=== PATIENT | female | born 1955 | race Caucasian/White ===

== ENCOUNTER 2016-12-05 22:02 | Emergency (ER) | payer SELFPAY ==
[~2016-12-05] VITALS: Ht 172.7 cm; Wt 117.9 kg
[~2016-12-05 22:02] MED LIST: ACET325T9 PO; ALBI50PE SQ; AMLO10TA2 PO; ASCO500T2 PO; ASPI-482 PO; ATOR20TA58 PO; CHOL2000 PO; CINN500C2 PO; CIPR500T94 PO; CITA20TA9 PO; CLOP75TA PO; CYAN1TAB21 PO; ERYT250T14 PO; FLUC100T7 PO; HYDR-2867 PO; HYDR12.58 PO; IBUP800T19 PO; INSU100I13 SQ; LOSA100T6 PO; METF500T4 PO; METO100T5 PO; METOPROLOL PO; MULT1TAB52 PO; OMEG1CAP27 PO; OMEG500C3 PO; ONDA8TAB12 PO; PANT40TA3 PO; SENN-79 PO; SIMV40TA3 PO; SPIR50TA2 PO; VALS1TAB22 PO; VALS320T2 PO; VITA1TAB3 PO
[2016-12-05 22:18] VITALS: BP 142/82
[2016-12-05] MEDS ORDERED: OXYMETAZOLINE 0.05% NASAL SPRAY 30ML BOTTLE. NS ONE (23:00)
[2016-12-06] MEDS ORDERED: TRANEXAMIC ACID 1,000 MG/10 ML VIAL. TOP ONE
[2016-12-06] MEDS ORDERED: CYCL5TAB PO (00:14)
[2016-12-06] MEDS ORDERED: CYCLOBENZAPRINE 10 MG TABLET. PO ONE (00:30)
--- NOTE | 2016-12-06 02:51 | ED.ADGEN ---
Past Medical History Past Medical History: CVA, Diabetes-Type II, Hypertension, Stroke, TIA, Other Additional Past Medical Histor: BONDS'S PALSY Past Surgical History: Other Additional Past Surgical Histo: ORIF LEFT ANKLE Alcohol Use: None Drug Use: None Adult General Chief Complaint Chief Complaint: NOSEBLEED HPI HPI Patient is a 61 year old [woman, history of type 2 diabetes mellitus, CVA and Plavix, hypertension, who presents emergency Department with complaint of epistaxis. Patient states she's been experiencing a stuffy runny nose for the past several days, is blind was recently. States that earlier tonight around 7 PM she noted that she was having bleeding, initially from her left [place], and appeared be coming from both. Patient states that she applied some pressure, although when she demonstrates her technique in the ED and appears to be fairly ineffective, and that bleeding was persistent until shortly before she arrived in the ED. Patient denies any headache, any blurry vision, any weakness, numbness, tingling, nausea or vomiting, chest pain or short of breath, swelling extremities. She is also complaining of pain from her sciatica, in her left lower extremity. She states she was seen by physical therapy after being seen by her primary care provider, as told with physical therapist that they did not believe the physical therapy would be effective, as they did not agreed that it was due to her sciatic pain. Review of Systems Review of Systems Constitutional: Denies fever or chills. [] Eyes: Denies change in visual acuity. [] HENT: Nasal congestion, no sore throat, the development of epistaxis for the past 3 hours. Respiratory: Denies cough or shortness of breath. [] Cardiovascular: Denies chest pain or edema. [] GI: Denies abdominal pain, nausea, vomiting, bloody stools or diarrhea. [] : Denies dysuria. [] Musculoskeletal: Denies back pain or joint pain. [] Integument: Denies rash. [] Neurologic: Denies headache, focal weakness or sensory changes. [] Endocrine: Denies polyuria or polydipsia. [] Lymphatic: Denies swollen glands. [] Psychiatric: Denies depression or anxiety. [] Current Medications Current Medications Current Medications Medications (Trade) Dose Ordered Sig/Mendy Start Time Stop Time Status Last Admin Dose Admin Cyclobenzaprine HCl (Flexeril) 5 mg 1X ONCE 12/06/16 00:30 12/06/16 00:30 DC 12/06/16 00:13 5 MG Oxymetazoline HCl (Afrin) 2 spray 1X ONCE 12/05/16 23:00 12/05/16 23:01 DC 12/05/16 22:48 2 SPRAY Tranexamic Acid (Cyklokapron) 1,000 mg 1X ONCE 12/06/16 00:00 12/06/16 00:01 DC 12/05/16 23:50 1,000 MG Allergies Allergies Allergies Coded Allergies Type Severity Reaction Last Updated Verified No Known Drug Allergies 01/03/16 No Physical Exam Physical Exam Constitutional: Well developed, well nourished, no acute distress, noted to have oozing from the left Whitfield. HENT: Normocephalic, atraumatic, bilateral external ears normal, oropharynx moist, no oral exudates, patient with dark red blood oozing from the left [place]field, noted have evidence of inflammation and irritation throughout the turbinates and mucosa, with no evidence of denuded vessels. Patient with some dried blood in right Whitfield, cleared without issue, noted to have mild inflammation of the turbinates, but no evidence of bleeding or other abnormalities. No evidence of posterior bleeding. Eyes: PERRLA, EOMI, conjunctiva normal, no discharge. [] Neck: Normal range of motion, no tenderness, supple, no stridor. [] Cardiovascular:Heart rate regular rhythm, no murmur, S1, S2, no rubs or gallops. [] Lungs & Thorax: Bilateral breath sounds clear to auscultation , no wheezing, rhonchi or rales. [] Abdomen: Bowel sounds normal, soft, no tenderness, no masses, no pulsatile masses. [] Skin: Warm, dry, no erythema, no rash. [] Back: No tenderness, no CVA tenderness. [] Extremities: No tenderness, no cyanosis, no clubbing, ROM intact, no edema. [] Neurologic: Alert and oriented X 3, normal motor function, normal sensory function, no focal deficits noted. [] Psychologic: Affect normal, judgement normal, mood normal. [] Current Patient Data Vital Signs Vital Signs Date Time Temp Pulse Resp B/P (MAP) Pulse Ox O2 Delivery O2 Flow Rate FiO2 12/05/16 22:18 97.5 77 18 142/82 (102) 97 Room Air 97.5 EKG EKG Not indicated. [] Radiology/Procedures Radiology/Procedures Not indicated. [] Course & Med Decision Making Course & Med Decision Making Pertinent Labs and Imaging studies reviewed. (See chart for details) Patient initially with no bleeding, however on further examination, oozing began out of the left Whitfield. This is an anterior bleed with no evidence of posterior bleeding, consistent with localized irritation due to possible seasonal allergies versus viral illness, exacerbated by patient's use of Plavix. Afrin was applied, patient had persistent bleeding. After discussion at bedside, T x-ray was administered via atomizer, patient with persistent bleeding at the time, and then a 5-1/2 cm anterior Rhino Rocket was placed with normal saline in the balloon with good effect secondary to compression. Patient observed in the ED, with no further evidence of bleeding, was comfortable with nasal balloon in place. I had a lengthy discussion at bedside with patient and regarding risks of having internasal device, and concerning symptoms that would prompt further evaluation and return. Patient is breathing without difficulty in the ED. She has also complaining of the pain in the left lower extremity, which I believe is consistent with sciatic type pain, as was diagnosed by her primary care provider. At this time the patient is using acetaminophen at home, I advised to continue acetaminophen as needed, and to also trial cyclobenzaprine 5 mg, after appropriate precautions regarding drowsiness and risk for side effects discussed. Patient voiced understanding and agreement with these instructions, to follow-up with her primary care provider in 48 hours for recheck, as she states there is any ENT in the same office, if there is difficulty in obtaining a visit with her primary care provider and with ENT, patient was also given contact information for Dr. Jerry of otolaryngology, instructed to contact his office at the number provided if there is any difficulty in establishing follow-up. Patient and voiced understanding and agreement with plan as stated, to return to the ED immediately if any concerning findings develop, to follow-up as stated, and to keep packing in place until she is further evaluated. Patient discharged home in stable condition with plan and precautions as above. Dragon Disclaimer Dragon Disclaimer This electronic medical record was generated, in whole or in part, using a voice recognition dictation system. Departure Impression: Primary Impression: Acute anterior epistaxis Disposition: HOME, SELF-CARE Condition: IMPROVED Scripts Cyclobenzaprine Hcl (CYCLOBENZAPRINE HCL) 5 Mg Tablet 1 TAB PO TID Y for PAIN, #12 TAB One pill by mouth up to 3 times daily as needed for muscle spasm and pain. Caution with use of this medication as it may cause drowsiness. Do not drive or operate machinery while using cyclobenzaprine. Prov: TORREY CONSTANTINO DO 12/06/16 TORREY CONSTANTINO DO Dec 06, 2016 02:51
== END 2016-12-06 00:23 | disposition home or self-care (01) ==
LOC: ER 22:02
DX: R04.0 Epistaxis (principal); E11.9 Type 2 diabetes mellitus without complications; I10 Essential (primary) hypertension; Z86.73 Personal history of transient ischemic attack (TIA), and cerebral infarction without residual deficits; G51.0 Bell's palsy; Z98.890 Other specified postprocedural states
CPT/HCPCS: 30901; 99284-25

== ENCOUNTER 2016-12-13 10:24 | Inpatient (IN) | payer SELFPAY ==
[~2016-12-13] VITALS: Ht 174 cm; Wt 123.9 kg
[~2016-12-13 10:24] MED LIST changes: +CYCL5TAB PO
[2016-12-13] MEDS ORDERED: FAMOTIDINE 20 MG/2 ML VIAL IVP ONE (10:45)
[2016-12-13] MEDS ORDERED: ONDANSETRON PF 4 MG/2 ML VIAL. IV ONE (10:45)
[2016-12-13] MEDS ORDERED: IV NORMAL SALINE 1000ML BAG 1,000 ML IV ONE ×2 (10:45→13:30)
--- NOTE | 2016-12-13 10:48 | PHYS DOC ---
Past Medical History Past Medical History: CVA, Diabetes-Type II, Hypertension, Stroke, TIA, Other Additional Past Medical Histor: BONDS'S PALSY Past Surgical History: Other Additional Past Surgical Histo: ORIF LEFT ANKLE Alcohol Use: None Drug Use: None Adult General Chief Complaint Chief Complaint: NAUSEA/VOMITING/DIARRHA HPI HPI Patient is a 61 year old female with history of hypertension, diabetes, CVA 4 , who presents today with nausea and vomiting that began 4 days ago. Patient states she was seen by the PCP on Wednesday which is 3 days ago for the same complaint. Patient states she was given nausea medicine. Patient states she took the nausea medicine and still had a couple episodes of vomiting. She states this morning she took 2 cups of coffee and was able to keep it down prior to coming to the ED. Patient states she has slight midepigastric abdominal pain. Denies any chest pain or shortness of breath. Denies any fever. Patient states her nausea and vomiting is nothing new. Patient states she's had episodes of nausea vomiting previously. Patient denies any diarrhea. Patient also states she is being treated for UTI currently on Cipro. She states she started the Cipro on Wednesday but has not been able to keep it down. Review of Systems Review of Systems Constitutional: See history of present illness Eyes: Denies change in visual acuity, redness, or eye pain [] HENT: Denies nasal congestion or sore throat [] Respiratory: Denies cough or shortness of breath [] Cardiovascular: No additional information not addressed in HPI [] GI: Nausea and vomiting : Denies dysuria or hematuria [] Musculoskeletal: History of CVA with left-sided weakness Integument: Denies rash or skin lesions [] Neurologic: Denies headache, focal weakness or sensory changes [] Endocrine: Denies polyuria or polydipsia [] Current Medications Current Medications Current Medications Medications (Trade) Dose Ordered Sig/Mendy Start Time Stop Time Status Last Admin Dose Admin Famotidine (Pepcid) 20 mg 1X ONCE 12/13/16 10:45 12/13/16 10:46 DC 12/13/16 10:56 20 MG Hydralazine HCl (Apresoline) 10 mg 1X ONCE 12/13/16 11:30 12/13/16 11:31 DC 12/13/16 12:10 10 MG Info (Do NOT chart on this entry -- for MONITORING) 1 each PRN DAILY PRN 12/13/16 12:00 12/15/16 11:59 Iohexol (Omnipaque 300 Mg/ml) 60 ml 1X ONCE 12/13/16 12:00 12/13/16 12:01 DC 12/13/16 12:18 60 ML Metoprolol Tartrate (Lopressor) 5 mg 1X ONCE 12/13/16 11:30 12/13/16 11:31 DC 12/13/16 12:11 5 MG Ondansetron HCl (Zofran) 4 mg 1X ONCE 12/13/16 10:45 12/13/16 10:46 DC 12/13/16 10:54 4 MG Sodium Chloride 1,000 ml @ 1,000 mls/hr 1X ONCE 12/13/16 10:45 12/13/16 11:44 DC 12/13/16 10:54 1,000 MLS/HR Allergies Allergies Allergies Coded Allergies Type Severity Reaction Last Updated Verified No Known Drug Allergies 01/03/16 No Physical Exam Physical Exam Constitutional: Well developed, well nourished, no acute distress, non-toxic appearance. [] HENT: Normocephalic, atraumatic, bilateral external ears normal, oropharynx moist, no oral exudates, nose normal. [] Eyes: PERRLA, EOMI, conjunctiva normal, no discharge. [] Neck: Normal range of motion, no tenderness, supple, no stridor. [] Cardiovascular:Heart rate regular rhythm, no murmur [] Lungs & Thorax: Bilateral breath sounds clear to auscultation [] Abdomen: Rounded abdomen. Bowel sounds normal, soft, no tenderness, no masses, no pulsatile masses. [] Skin: Warm, dry, no erythema, no rash. [] Back: No tenderness, no CVA tenderness. [] Extremities: No tenderness, no cyanosis, no clubbing, no edema. Left sided weakness noted from previous CVA Neurologic: Alert and oriented X 3, normal motor function, normal sensory function, no focal deficits noted. [] Psychologic: Affect normal, judgement normal, mood normal. [] Current Patient Data Vital Signs Vital Signs Date Time Temp Pulse Resp B/P (MAP) Pulse Ox O2 Delivery O2 Flow Rate FiO2 12/13/16 12:40 75 18 167/74 (105) 98 Room Air 12/13/16 10:32 98.9 98.9 Lab Values Laboratory Tests Test 12/13/16 10:45 12/13/16 11:50 White Blood Count 21.7 x10^3/uL (4.0-11.0) H Red Blood Count 3.83 x10^6/uL (3.50-5.40) Hemoglobin 10.6 g/dL (12.0-15.5) L Hematocrit 30.8 % (36.0-47.0) L Mean Corpuscular Volume 81 fL (79-100) Mean Corpuscular Hemoglobin 28 pg (25-35) Mean Corpuscular Hemoglobin Concent 34 g/dL (31-37) Red Cell Distribution Width 13.8 % (11.5-14.5) Platelet Count 479 x10^3/uL (140-400) H Neutrophils (%) (Auto) 86 % (31-73) H Lymphocytes (%) (Auto) 9 % (24-48) L Monocytes (%) (Auto) 5 % (0-9) Eosinophils (%) (Auto) 0 % (0-3) Basophils (%) (Auto) 0 % (0-3) Neutrophils # (Auto) 18.6 x10^3uL (1.8-7.7) H Lymphocytes # (Auto) 2.0 x10^3/uL (1.0-4.8) Monocytes # (Auto) 1.1 x10^3/uL (0.0-1.1) Eosinophils # (Auto) 0.0 x10^3/uL (0.0-0.7) Basophils # (Auto) 0.0 x10^3/uL (0.0-0.2) Segmented Neutrophils % 83 % (35-66) H Band Neutrophils % 3 % (0-9) Lymphocytes % 9 % (24-48) L Monocytes % 2 % (0-10) Myelocytes % 3 % (0-0) H Hypersegmented Neutrophils Present Platelet Estimate Increased (ADEQUATE) Prothrombin Time 13.1 SEC (11.7-14.0) Prothrombin Time INR 1.1 (0.8-1.1) PTT 28 SEC (24-38) Sodium Level 138 mmol/L (136-145) Potassium Level 4.3 mmol/L (3.5-5.1) Chloride Level 101 mmol/L (98-107) Carbon Dioxide Level 29 mmol/L (21-32) Anion Gap 8 (6-14) Blood Urea Nitrogen 25 mg/dL (7-20) H Creatinine 1.1 mg/dL (0.6-1.0) H Estimated GFR (Cockcroft-Gault) 50.2 BUN/Creatinine Ratio 23 (6-20) H Glucose Level 187 mg/dL (70-99) H Calcium Level 9.6 mg/dL (8.5-10.1) Magnesium Level 1.9 mg/dL (1.8-2.4) Total Bilirubin 0.5 mg/dL (0.2-1.0) Aspartate Amino Transferase (AST) 29 U/L (15-37) Alanine Aminotransferase (ALT) 56 U/L (14-59) Alkaline Phosphatase 81 U/L (46-116) Creatine Kinase 123 U/L (26-192) Creatine Kinase MB (Mass) 1.5 ng/mL (0.0-3.6) Creatine Kinase MB Relative Index 1.2 % (0-4) Troponin I Quantitative < 0.017 ng/mL (0.000-0.055) FZ-Yac-C-Type Natriuretic Peptide 1301 pg/mL (0-124) H Total Protein 7.7 g/dL (6.4-8.2) Albumin 3.4 g/dL (3.4-5.0) Albumin/Globulin Ratio 0.8 (1.0-1.7) L Lipase 135 U/L (73-393) Urine Collection Type U cath Urine Color Yellow Urine Clarity Clear Urine pH 5.5 Urine Specific [place] 1.015 Urine Protein 30 mg/dL (NEG-TRACE) Urine Glucose (UA) Negative mg/dL (NEG) Urine Ketones (Stick) Negative mg/dL (NEG) Urine Blood Negative (NEG) Urine Nitrite Positive (NEG) Urine Bilirubin Negative (NEG) Urine Urobilinogen Dipstick 0.2 mg/dL (0.2 mg/dL) Urine Leukocyte Esterase Moderate (NEG) Urine RBC Occ /HPF (0-2) Urine WBC 20-40 /HPF (0-4) Urine Squamous Epithelial Cells Few /LPF Urine Bacteria Many /HPF (0-FEW) Urine Mucus Slight /LPF Laboratory Tests 12/13/16 10:45 Laboratory Tests 12/13/16 10:45 EKG EKG [] Radiology/Procedures Radiology/Procedures [] Course & Med Decision Making Course & Med Decision Making Pertinent Labs and Imaging studies reviewed. (See chart for details) This is a 61-year-old female patient who presents to the ED today with nausea vomiting that began 4 days ago. She was seen by the PCP 3 days ago and was given nausea medicine. She states she still continued to have episodes of nausea and vomiting. She is also being treated for UTI. She is currently on Cipro but not able to keep it down because of the nausea and vomiting. CBC with a WBC of 21.7. Urine positive for nitrites and leukocytes. Vitals on arrival to the ED temperature 98.9, heart rate 74, O2 sats 99% on room air, respirations 16 on room air, blood pressure 201/88, patient states she has not been able to take her blood pressure medicines because of her symptoms. She was given hydralazine and metoprolol IV which she takes PO at home. We did consider this patient for sepsis though she does not meet the full criteria. Her white count is elevated which could come from a pyelonephritis as well as the nausea and vomiting. She seemed to have a BNP that is elevated 1301 , slight consideration for heart failure in her case was put in mind. Chest x- ray is negative for any acute findings. She was given a liter of fluids and started on normal saline at 125 mL an hour. She was also started on Levaquin. Blood cultures were obtained prior to antibiotics as well as urine cultures. Consulted with Dr. Tomlinson patient was admitted in stable condition. Dragon Disclaimer Dragon Disclaimer This electronic medical record was generated, in whole or in part, using a voice recognition dictation system. Departure Departure Impression: Primary Impression: Acute pyelonephritis Additional Impressions: Intractable nausea and vomiting Leukocytosis Sepsis Epigastric abdominal pain Disposition: ADMITTED INPATIENT Admitting Physician: Nithin Tomlinson Condition: STABLE Referrals: NALLELY MCLEAN MD (PCP) Problem Qualifiers Additional Impressions: Intractable nausea and vomiting Vomiting type: unspecified Qualified Codes: R11.2 - Nausea with vomiting, unspecified Leukocytosis Leukocytosis type: unspecified Qualified Codes: D72.829 - Elevated white blood cell count, unspecified Sepsis Sepsis type: sepsis due to unspecified organism Qualified Codes: A41.9 - Sepsis, unspecified organism MUTUNGA,ANTONI ECHOCARDIOGRAPHER Dec 13, 2016 10:48
[2016-12-13 11:02] LABS: BASO % 0 % (0-3); EOS % 0 % (0-3); HEMATOCRIT 30.8 % (36.0-47.0); HEMOGLOBIN 10.6 g/dL (12.0-15.5); LYMPH % 9 % (24-48); MEAN CORPUSCULAR HEMOGLOBIN 28 pg (25-35); MEAN CORPUSCULAR HGB CONC 34 g/dL (31-37); MEAN CORPUSCULAR VOLUME 81 fL (79-100); MONO % 5 % (0-9); NEUT % 86 % (31-73); PLATELET COUNT 479 x10^3/uL (140-400); RED BLOOD COUNT 3.83 x10^6/uL (3.50-5.40); RED CELL DISTRIBUTION WIDTH 13.8 % (11.5-14.5); WHITE BLOOD COUNT 21.7 x10^3/uL (4.0-11.0)
[2016-12-13 11:11] LABS: INR 1.1 (0.8-1.1); PROTHROMBIN TIME PATIENT 13.1 SEC (11.7-14.0)
[2016-12-13 11:12] LABS: CALCIUM 9.6 mg/dL (8.5-10.1); CREATININE 1.1 mg/dL (0.6-1.0); GFR 50.2; POTASSIUM 4.3 mmol/L (3.5-5.1)
[2016-12-13 11:19] LABS: ALBUMIN 3.4 g/dL (3.4-5.0); ALBUMIN/GLOBULIN RATIO 0.8 (1.0-1.7); MAGNESIUM 1.9 mg/dL (1.8-2.4); TOTAL BILIRUBIN 0.5 mg/dL (0.2-1.0); TOTAL PROTEIN 7.7 g/dL (6.4-8.2)
[2016-12-13 11:27] LABS: CKMB MASS 1.5 ng/mL (0.0-3.6)
[2016-12-13] MEDS ORDERED: hydrALAZINE 20 MG/ML VIAL. IVP ONE (11:30)
[2016-12-13] MEDS ORDERED: METOPROLOL TARTRATE 5 MG/5 ML VIAL. IVP ONE (11:30)
--- NOTE | 2016-12-13 11:30 | RAD ---
Portable chest, 12/13/2016: History: Nausea, vomiting, diarrhea, epigastric pain, UTI Comparison is made to a study from 01/01/2016. The heart size and pulmonary vascularity are normal. There is mild tortuosity of the thoracic aorta. There is minimal linear atelectasis and/or scarring in the left base. No pulmonary consolidation is seen. There is no evidence of pleural fluid. IMPRESSION: Minimal left basilar linear atelectasis or scarring.
--- NOTE | 2016-12-13 11:31 | EKG ---
[facility] [address] [place] [address] Test Date: 2016-12-13 Test Time: 10:39:49 Pat Name: TUAN PAEZ Department: Room: Gender: F [employer] Intern: : 1955 Requested By: ANTONI MEIER Order Number: [id number] Reading MD: Kenny Buchanan Measurements Intervals [place] Rate: 71 P: 45 RI: 138 QRS: -6 QRSD: 86 T: 38 QT: 418 QTc: 459 Interpretive Statements SINUS RHYTHM LEFTWARD AXIS OTHERWISE NORMAL ECG RI6.01 Unconfirmed report Compared to ECG 01/01/2016 12:48:08 Left-axis deviation now present Electronically Signed On 12-13-2016 15:57:38 CDT by Kenny Buchanan
[2016-12-13] MEDS ORDERED: IOHEXOL 300 MG/ML 75 ML VIAL IV ONE (12:00)
[2016-12-13] MEDS ORDERED: CONTRAST GIVEN MC PRN (12:00)
[2016-12-13 12:13] LABS: BILIRUBIN,URINE NEGATIVE (NEG); GLUCOSE,URINE NEGATIVE (NEG); NITRITE,URINE POSITIVE (NEG); PH,URINE 5.5; PROTEIN,URINE 30 mg/dL (NEG-TRACE); UROBILINOGEN,URINE 0.2 mg/dL (0.2 mg/dL)
[2016-12-13 12:17] LABS: PLT ESTIMATE INCREASED (ADEQUATE)
[2016-12-13 12:18] LABS: SQUAMOUS EPITHELIAL CELL,UR FEW /LPF
[2016-12-13 12:19] LABS: BACTERIA,URINE MANY /HPF (0-FEW); WBC,URINE 20-40 /HPF (0-4)
[2016-12-13 12:21] LABS: RBC,URINE OCC /HPF (0-2)
--- NOTE | 2016-12-13 12:53 | RAD ---
CT of the abdomen and pelvis with contrast, 12/13/2016: History: Abdominal pain, nausea and vomiting Multidetector CT imaging was performed following an IV bolus injection of iodinated contrast material. No oral contrast material was administered for this study. There is mild linear atelectasis or scarring in the left lung base. No hepatic abnormality is detected. No definite gallbladder abnormality is seen. There is no evidence of pericholecystic edema. The pancreas is unremarkable. The spleen is of normal size. No renal or adrenal abnormality is detected. There is mild aortoiliac calcific plaquing without evidence of aneurysm. No abdominal or pelvic adenopathy is seen. The uterus and ovaries are unremarkable. Several small colonic diverticula are noted in the sigmoid and descending colon. No paracolonic inflammatory process is seen. The bowel loops are not dilated. The appendix is not clearly visualized. No dilated appendix or pericecal inflammatory process is evident. No free fluid or free air is seen in the abdomen or pelvis. There is a small umbilical hernia containing only fat. There are degenerative changes in the lower lumbar spine, greatest at the L5-S1 disc level. IMPRESSION: 1. Minimal colonic diverticulosis. 2. No acute abdominal or pelvic abnormality is detected. PQRS Compliance Statement: One or more of the following individualized dose reduction techniques were utilized for this examination: 1. Automated exposure control 2. Adjustment of the mA and/or kV according to patient size 3. Use of iterative reconstruction technique
[2016-12-13] MEDS ORDERED: PROCHLORPERAZINE 10 MG/2 ML VIAL. IV PRN (13:30)
[2016-12-13] MEDS ORDERED: MORPHINE SULFATE 4 MG/ML DISP.SYRIN. IV PRN (13:30)
[2016-12-13] MEDS ORDERED: ONDANSETRON PF 4 MG/2 ML VIAL. IV PRN (13:30)
[2016-12-13] MEDS ORDERED: INSU100V8 SQ (14:25)
[2016-12-13] MEDS ORDERED: HYDR-2868 PO (14:25)
[2016-12-13] MEDS ORDERED: METO100T11 PO (14:46)
[2016-12-13] MEDS ORDERED: PANT40TA5 PO (14:46)
[2016-12-13 15:00] VITALS: BP 155/63
[2016-12-13] MEDS ORDERED: hydrALAZINE 20 MG/ML VIAL. IVP PRN (16:30)
[2016-12-13] MEDS ORDERED: MORPHINE SULFATE 2 MG/ML DISP.SYRIN. IV PRN (16:30)
[2016-12-13] MEDS ORDERED: DOCUSATE SODIUM 100 MG CAPSULE. PO PRN (16:30)
[2016-12-13] MEDS ORDERED: ACETAMINOPHEN 325 MG TABLET. PO PRN (16:30)
[2016-12-13] MEDS ORDERED: DEXTROSE 50% 25 GM / 50ML DISP.SYRIN. IV PRN ×2 (16:30)
[2016-12-13] MEDS ORDERED: traMADol 50 MG TABLET PO PRN (16:30)
--- NOTE | 2016-12-13 16:31 | PDOC1 ---
History and Physical Date of Admission Date of Admission 12/13/16 Identification/Chief Complaint Chief Complaint N/V Problems: Source Source: Caregiver, Chart review, Patient History of Present Illness History of Present Illness HPI Patient is a 61 year old female with history of hypertension, diabetes, CVA 4 , who presents today with nausea and vomiting x1 week. Pt was here recently for nose bleeding, resolved. She started to feel N/V since Wednesday, BM normal . went to see PCP on Wednesday, was told UTI, gave cipro and took 2 pills. Denies fever, chills, abd pain, flank pain, cough ,sob. denies dysuria, but has chronic frequent urination with urinary incontinence and BM incontinence. ct NEG Except mild diverticulosis. denies taking NSADIS, said had EGD, COlonoscopy with dr. Swanson last year, neg. Past Medical History Cardiovascular: HTN, Hyperlipidemia Pulmonary: No pertinent hx CENTRAL NERVOUS SYSTEM: CVA, Other GI: No pertinent hx Heme/Onc: Anemia NOS Hepatobiliary: No pertinent hx Psych: No pertinent hx Rheumatologic: No pertinent hx Infectious disease: No pertinent hx Renal/: Chronic renal insuff Endocrine: Diabetes Past Surgical History Past Surgical History: Other Family History Family History: Coronary Artery Disease, Stroke Social History Smoke: No ALCOHOL: none Drugs: None Current Problem List Problem List Problems Medical Problems: (1) Epigastric abdominal pain Status: Acute (2) Intractable nausea and vomiting Status: Acute (3) Leukocytosis Status: Acute (4) Sepsis Status: Acute Current Medications Current Medications Current Medications Medications (Trade) Dose Ordered Sig/Mendy Start Time Stop Time Status Last Admin Dose Admin Famotidine (Pepcid) 20 mg BID 12/13/16 21:00 Hydralazine HCl (Apresoline) 10 mg 1X ONCE 12/13/16 11:30 12/13/16 11:31 DC 12/13/16 12:10 10 MG Info (Do NOT chart on this entry -- for MONITORING) 1 each PRN DAILY PRN 12/13/16 12:00 12/15/16 11:59 Iohexol (Omnipaque 300 Mg/ml) 60 ml 1X ONCE 12/13/16 12:00 12/13/16 12:01 DC 12/13/16 12:18 60 ML Levofloxacin/ Dextrose 100 ml @ 100 mls/hr Q24H 12/13/16 14:00 12/13/16 14:37 100 MLS/HR Metoprolol Tartrate (Lopressor) 5 mg 1X ONCE 12/13/16 11:30 12/13/16 11:31 DC 12/13/16 12:11 5 MG Morphine Sulfate 4 mg PRN Q2HR PRN 12/13/16 13:30 12/14/16 13:29 Ondansetron HCl (Zofran) 4 mg PRN Q8HRS PRN 12/13/16 13:30 12/14/16 13:29 Prochlorperazine Edisylate (Compazine) 10 mg PRN Q8HRS PRN 12/13/16 13:30 Sodium Chloride 1,000 ml @ 125 mls/hr 1X ONCE 12/13/16 13:30 12/13/16 21:29 12/13/16 14:36 125 MLS/HR Allergies Allergies Allergies Coded Allergies Type Severity Reaction Last Updated Verified No Known Drug Allergies 01/03/16 No ROS Review of System CONSTITUTIONAL: No fever or chills EYES: No recent changes SKIN: No rash or itching CARDIOVASCULAR: No chest pain, syncope, palpitations, or edema RESPIRATORY: No SOB or cough GASTROINTESTINAL: No nausea, vomiting or abdominal pain NEUROLOGICAL: No headaches or weakness ENDOCRINE: No cold or heat intolerance GENITOURINARY: No urgency or frequency of urination MUSCULOSKELETAL: No back pain or joint pain LYMPHATICS: No enlarged lymph nodes PSYCHIATRIC: No anxiety or depression Physical Exam Physical Exam GEN.: No apparent distress. Alert and oriented. HEENT: Head is normocephalic, atraumatic NECK: Supple. LUNGS: Clear to auscultation. HEART: RRR, S1, S2 present. Peripheral pulses intact ABDOMEN: Soft, nontender. Positive bowel sounds. EXTREMITIES: Without any cyanosis. NEUROLOGIC: Normal speech, normal tone PSYCHIATRIC: Normal affect, normal mood. SKIN: No ulcerations Vitals Vitals Vital Signs Date Time Temp Pulse Resp B/P (MAP) Pulse Ox O2 Delivery O2 Flow Rate FiO2 12/13/16 15:39 Room Air 12/13/16 15:00 98.3 74 20 155/63 (93) 97 98.3 Labs Labs Laboratory Tests Test 12/13/16 10:45 12/13/16 11:50 12/13/16 13:53 White Blood Count 21.7 x10^3/uL (4.0-11.0) Red Blood Count 3.83 x10^6/uL (3.50-5.40) Hemoglobin 10.6 g/dL (12.0-15.5) Hematocrit 30.8 % (36.0-47.0) Mean Corpuscular Volume 81 fL (79-100) Mean Corpuscular Hemoglobin 28 pg (25-35) Mean Corpuscular Hemoglobin Concent 34 g/dL (31-37) Red Cell Distribution Width 13.8 % (11.5-14.5) Platelet Count 479 x10^3/uL (140-400) Neutrophils (%) (Auto) 86 % (31-73) Lymphocytes (%) (Auto) 9 % (24-48) Monocytes (%) (Auto) 5 % (0-9) Eosinophils (%) (Auto) 0 % (0-3) Basophils (%) (Auto) 0 % (0-3) Neutrophils # (Auto) 18.6 x10^3uL (1.8-7.7) Lymphocytes # (Auto) 2.0 x10^3/uL (1.0-4.8) Monocytes # (Auto) 1.1 x10^3/uL (0.0-1.1) Eosinophils # (Auto) 0.0 x10^3/uL (0.0-0.7) Basophils # (Auto) 0.0 x10^3/uL (0.0-0.2) Segmented Neutrophils % 83 % (35-66) Band Neutrophils % 3 % (0-9) Lymphocytes % 9 % (24-48) Monocytes % 2 % (0-10) Myelocytes % 3 % (0-0) Hypersegmented Neutrophils Present Platelet Estimate Increased (ADEQUATE) Prothrombin Time 13.1 SEC (11.7-14.0) Prothromb Time International Ratio 1.1 (0.8-1.1) Activated Partial Thromboplast Time 28 SEC (24-38) Sodium Level 138 mmol/L (136-145) Potassium Level 4.3 mmol/L (3.5-5.1) Chloride Level 101 mmol/L (98-107) Carbon Dioxide Level 29 mmol/L (21-32) Anion Gap 8 (6-14) Blood Urea Nitrogen 25 mg/dL (7-20) Creatinine 1.1 mg/dL (0.6-1.0) Estimated GFR (Cockcroft-Gault) 50.2 BUN/Creatinine Ratio 23 (6-20) Glucose Level 187 mg/dL (70-99) Calcium Level 9.6 mg/dL (8.5-10.1) Magnesium Level 1.9 mg/dL (1.8-2.4) Total Bilirubin 0.5 mg/dL (0.2-1.0) Aspartate Amino Transf (AST/SGOT) 29 U/L (15-37) Alanine Aminotransferase (ALT/SGPT) 56 U/L (14-59) Alkaline Phosphatase 81 U/L (46-116) Creatine Kinase 123 U/L (26-192) Creatine Kinase MB (Mass) 1.5 ng/mL (0.0-3.6) Creatine Kinase MB Relative Index 1.2 % (0-4) Troponin I Quantitative < 0.017 ng/mL (0.000-0.055) GO-Ayw-S-Type Natriuretic Peptide 1301 pg/mL (0-124) Total Protein 7.7 g/dL (6.4-8.2) Albumin 3.4 g/dL (3.4-5.0) Albumin/Globulin Ratio 0.8 (1.0-1.7) Lipase 135 U/L (73-393) Urine Collection Type U cath Urine Color Yellow Urine Clarity Clear Urine pH 5.5 Urine Specific [place] 1.015 Urine Protein 30 mg/dL (NEG-TRACE) Urine Glucose (UA) Negative mg/dL (NEG) Urine Ketones (Stick) Negative mg/dL (NEG) Urine Blood Negative (NEG) Urine Nitrite Positive (NEG) Urine Bilirubin Negative (NEG) Urine Urobilinogen Dipstick 0.2 mg/dL (0.2 mg/dL) Urine Leukocyte Esterase Moderate (NEG) Urine RBC Occ /HPF (0-2) Urine WBC 20-40 /HPF (0-4) Urine Squamous Epithelial Cells Few /LPF Urine Bacteria Many /HPF (0-FEW) Urine Mucus Slight /LPF Lactic Acid Level 1.1 mmol/L (0.4-2.0) Procalcitonin < 0.10 ng/mL (0.00-0.10) Laboratory Tests Test 12/13/16 10:45 12/13/16 11:50 12/13/16 13:53 White Blood Count 21.7 x10^3/uL (4.0-11.0) Red Blood Count 3.83 x10^6/uL (3.50-5.40) Hemoglobin 10.6 g/dL (12.0-15.5) Hematocrit 30.8 % (36.0-47.0) Mean Corpuscular Volume 81 fL (79-100) Mean Corpuscular Hemoglobin 28 pg (25-35) Mean Corpuscular Hemoglobin Concent 34 g/dL (31-37) Red Cell Distribution Width 13.8 % (11.5-14.5) Platelet Count 479 x10^3/uL (140-400) Neutrophils (%) (Auto) 86 % (31-73) Lymphocytes (%) (Auto) 9 % (24-48) Monocytes (%) (Auto) 5 % (0-9) Eosinophils (%) (Auto) 0 % (0-3) Basophils (%) (Auto) 0 % (0-3) Neutrophils # (Auto) 18.6 x10^3uL (1.8-7.7) Lymphocytes # (Auto) 2.0 x10^3/uL (1.0-4.8) Monocytes # (Auto) 1.1 x10^3/uL (0.0-1.1) Eosinophils # (Auto) 0.0 x10^3/uL (0.0-0.7) Basophils # (Auto) 0.0 x10^3/uL (0.0-0.2) Segmented Neutrophils % 83 % (35-66) Band Neutrophils % 3 % (0-9) Lymphocytes % 9 % (24-48) Monocytes % 2 % (0-10) Myelocytes % 3 % (0-0) Hypersegmented Neutrophils Present Platelet Estimate Increased (ADEQUATE) Prothrombin Time 13.1 SEC (11.7-14.0) Prothromb Time International Ratio 1.1 (0.8-1.1) Activated Partial Thromboplast Time 28 SEC (24-38) Sodium Level 138 mmol/L (136-145) Potassium Level 4.3 mmol/L (3.5-5.1) Chloride Level 101 mmol/L (98-107) Carbon Dioxide Level 29 mmol/L (21-32) Anion Gap 8 (6-14) Blood Urea Nitrogen 25 mg/dL (7-20) Creatinine 1.1 mg/dL (0.6-1.0) Estimated GFR (Cockcroft-Gault) 50.2 BUN/Creatinine Ratio 23 (6-20) Glucose Level 187 mg/dL (70-99) Calcium Level 9.6 mg/dL (8.5-10.1) Magnesium Level 1.9 mg/dL (1.8-2.4) Total Bilirubin 0.5 mg/dL (0.2-1.0) Aspartate Amino Transf (AST/SGOT) 29 U/L (15-37) Alanine Aminotransferase (ALT/SGPT) 56 U/L (14-59) Alkaline Phosphatase 81 U/L (46-116) Creatine Kinase 123 U/L (26-192) Creatine Kinase MB (Mass) 1.5 ng/mL (0.0-3.6) Creatine Kinase MB Relative Index 1.2 % (0-4) Troponin I Quantitative < 0.017 ng/mL (0.000-0.055) EB-Arc-S-Type Natriuretic Peptide 1301 pg/mL (0-124) Total Protein 7.7 g/dL (6.4-8.2) Albumin 3.4 g/dL (3.4-5.0) Albumin/Globulin Ratio 0.8 (1.0-1.7) Lipase 135 U/L (73-393) Urine Collection Type U cath Urine Color Yellow Urine Clarity Clear Urine pH 5.5 Urine Specific [place] 1.015 Urine Protein 30 mg/dL (NEG-TRACE) Urine Glucose (UA) Negative mg/dL (NEG) Urine Ketones (Stick) Negative mg/dL (NEG) Urine Blood Negative (NEG) Urine Nitrite Positive (NEG) Urine Bilirubin Negative (NEG) Urine Urobilinogen Dipstick 0.2 mg/dL (0.2 mg/dL) Urine Leukocyte Esterase Moderate (NEG) Urine RBC Occ /HPF (0-2) Urine WBC 20-40 /HPF (0-4) Urine Squamous Epithelial Cells Few /LPF Urine Bacteria Many /HPF (0-FEW) Urine Mucus Slight /LPF Lactic Acid Level 1.1 mmol/L (0.4-2.0) Procalcitonin < 0.10 ng/mL (0.00-0.10) VTE Prophylaxis Ordered VTE Prophylaxis Devices: Yes VTE Pharmacological Prophylaxi: Yes Assessment/Plan Assessment/Plan N/V, need to rule out gastroparesis Possible UTI chronic urinary and BM incontinence PAFIB HTN DM2 morbid obesity BMI 41 h/o CVA CKD3 SIRS with possible UTI PLAN: gi consult full liquid diet for now decrease levemir to 15u qhs, for now, SSI ivf GES cont home meds ceftriaxone for now, fu ucx PTOT dvt, gi ppx TOSHIA RAINES MD Dec 13, 2016 16:31
[2016-12-13] MEDS ORDERED: ENOXAPARIN 30 MG/0.3 ML SYRINGE. SQ SCH (17:00)
[2016-12-13] MEDS: INSULIN ASPART 300 UNITS/3 ML INSULN.PEN SQ SCH (17:00)
--- NOTE | 2016-12-13 17:30 | ACF ---
Admission Forms Criteria VOMITING Clinical Indications for Admission to Inpatient Care ( Place 'X' for any and all applicable criteria): Admission is indicated for 1 or more of the following(1)(2)(3): [ ]I. Complete or partial gastrointestinal obstruction [ ]II. Vomiting due to significant metabolic derangement (eg, severe hypercalcemia, diabetic ketoacidosis) [ ]III. Other cause of vomiting requiring hospitalization (eg, poisoning, increased intracranial pressure) [X]IV. Inpatient admission required rather than observation care because of 1 or more of the following [ ]i) Hemodynamic instability [X]ii) Vomiting that is severe or persistent indicated by 1 or more of the following 1) Numerous episodes of vomiting in past 24hours (eg, every 1 to 2 hours) 2) Suggests severe underlying cause or complication (eg , projectile, feculent, bilious, coffee ground, bloody) [X] 3) Appropriate antiemetic treatment (eg, repeated oral or parenteral dosing) does not sufficiently reduce vomiting within 12 to 24 hours of treatment [X]4) Treatment regimen necessary to adequately control vomiting requires inpatient level of care (eg, not immediately available in outpatient setting) [ ]iii) Severe electrolyte abnormalities requiring inpatient care [ ]iv) Severe pain requiring acute inpatient management( Continuous or frequent (eg, every 2 to 4 hours) parental analgesics or analgesic regimen that can only be performed or initiated in inpatient setting) [ ]v) High fever or infection requiring inpatient admission as indicated by 1 or more of the following(7)(8): [ ]1) Appropriate outpatient or observation care antimicrobial treatment unavailable, not effective, or not feasible [ ]2) Documented bacteremia [ ]3) Temp >104.9 degrees F (40.5 degrees C) (oral) [ ]4) Temp >103.1 degrees F (39.5 C) (oral) or <96.8 degrees F (36 C) (rectal) that does not respond to all emergency treatment measures [ ]vi) Acute renal failure [ ]vii) IV fluid required rather than oral rehydration to replace significant on going losses (greater than 3 L/m2 per day) [ ]viii) Parenteral nutrition regimen that must be implemented on inpatient basis [ ]ix) Other condition, treatment or monitoring requiring inpatient admission Extended stay beyond goal length of stay may be needed for(1)(4): [ ]a) Severe vomiting [ ]b) Persistent vomiting, vital sign changes, severe electrolyte imbalance , or diagnosed cause of vomiting that requires continued hospitalization (eg, gastrointestinal obstruction , increased intracranial pressure) [ ]c) Surgery to treat identified causes of vomiting (eg, bowel obstruction , intracranial process) [ ]d) Comorbid illness that requires inpatient care (eg, acute heart failure , renal failure) [ ]e) Need for inpatient endoscopy The original [employer] content created by [employer] has been revised. The portions of the content which have been revised are identified through the use of italic text or in bold, and [facility] has neither reviewed nor approved the modified material. All other unmodified content is copyright [employer]. Please see references footnoted in the original [facility] edition 2016 Admission Criteria Met?: Yes HAMMAD OVERTON Dec 13, 2016 17:30
[2016-12-13] MEDS: hydrALAZINE 25 MG TABLET PO SCH ×2 (18:15→20:46)
[2016-12-13 19:50] VITALS: BP 148/49
[2016-12-13] MEDS: OMEGA-3 FATTY ACIDS/FISH OIL 1,000 MG CAPSULE. PO SCH (20:46)
[2016-12-13] MEDS: ATORVASTATIN CALCIUM 20 MG TABLET PO SCH (20:46)
[2016-12-13] MEDS ORDERED: FAMOTIDINE 20 MG/2 ML VIAL IVP SCH (21:00)
[2016-12-13] MEDS ORDERED: INSULIN GLARGINE HUM REC ANLOG 30 UNIT SQ SCH (21:00)
[2016-12-13] MEDS ORDERED: FAMOTIDINE 20 MG TABLET. PO SCH (21:00)
[2016-12-13] MEDS ORDERED: INSULIN DETEMIR 300 UNITS/3 ML INSULN.PEN. SQ SCH (21:00)
[2016-12-13 23:52] VITALS: BP 151/67
[2016-12-14 03:56] VITALS: BP 140/50
[2016-12-14 06:25] LABS: BASO % 0 % (0-3); EOS % 1 % (0-3); HEMATOCRIT 29.2 % (36.0-47.0); HEMOGLOBIN 9.3 g/dL (12.0-15.5); LYMPH # 2.5 x10^3/uL (1.0-4.8); LYMPH % 15 % (24-48); MEAN CORPUSCULAR HEMOGLOBIN 26 pg (25-35); MEAN CORPUSCULAR HGB CONC 32 g/dL (31-37); MEAN CORPUSCULAR VOLUME 83 fL (79-100); MONO % 7 % (0-9); NEUT % 78 % (31-73); PLATELET COUNT 404 x10^3/uL (140-400); RED BLOOD COUNT 3.53 x10^6/uL (3.50-5.40); RED CELL DISTRIBUTION WIDTH 14.4 % (11.5-14.5); WHITE BLOOD COUNT 16.9 x10^3/uL (4.0-11.0)
[2016-12-14 06:44] LABS: CALCIUM 9.1 mg/dL (8.5-10.1); CREATININE 1.1 mg/dL (0.6-1.0); GFR 50.2; POTASSIUM 4.3 mmol/L (3.5-5.1)
[2016-12-14 07:00] VITALS: BP 157/73
[2016-12-14] MEDS: INSULIN ASPART 300 UNITS/3 ML INSULN.PEN SQ SCH ×3 (08:00→18:34)
[2016-12-14] MEDS: OMEGA-3 FATTY ACIDS/FISH OIL 1,000 MG CAPSULE. PO SCH ×2 (10:58→19:43)
[2016-12-14] MEDS: PANTOPRAZOLE 40 MG TABLET.DR. PO SCH (10:58)
[2016-12-14] MEDS: CITALOPRAM 20 MG TABLET. PO SCH (10:58)
[2016-12-14] MEDS: LOSARTAN POTASSIUM 50 MG TABLET. PO SCH (10:59)
[2016-12-14] MEDS: MULTIVITAMIN with MINERAL TABLET. PO SCH (10:59)
[2016-12-14] MEDS: SPIRONOLACTONE 25 MG TABLET PO SCH (10:59)
[2016-12-14 11:00] VITALS: BP 179/96
[2016-12-14] MEDS: CLOPIDOGREL BISULFATE 75 MG TABLET PO SCH (11:00)
[2016-12-14] MEDS: ASPIRIN ENTERIC COATED 81 MG TABLET.DR. PO SCH (11:00)
[2016-12-14] MEDS: hydrALAZINE 25 MG TABLET PO SCH ×4 (11:00→21:29)
[2016-12-14] MEDS: amLODIPine BESYLATE 10 MG TABLET PO SCH (11:01)
[2016-12-14] MEDS: METOPROLOL SUCC 24HR ER 100 MG TAB.ER.24H. PO SCH (11:01)
--- NOTE | 2016-12-14 11:08 | RAD ---
Radionuclide gastric imaging study, 12/14/2016: History: Nausea and vomiting The study was performed utilizing a solid test meal radiolabeled with 2.0 mCi of technetium 99m sulfur colloid. Imaging out to one hour showed little if any gastric emptying. IMPRESSION: Severe gastroparesis.
--- NOTE | 2016-12-14 11:33 | PDOC ---
PROGRESS NOTES Chief Complaint Chief Complaint N/V, 2/2 severe gastroparesis Possible UTI chronic urinary and BM incontinence PAFIB HTN DM2 morbid obesity BMI 41 h/o CVA CKD3 SIRS with possible UTI PLAN: gi consult advance to gi soft decrease levemir to 20u qhs, for now, SSI ivf GES cont home meds ceftriaxone for now, fu ucx PTOT dvt, gi ppx History of Present Illness History of Present Illness N/V better today GES + gastraparesis Vitals Vitals Vital Signs Date Time Temp Pulse Resp B/P (MAP) Pulse Ox O2 Delivery O2 Flow Rate FiO2 12/14/16 11:01 65 157/73 12/14/16 11:00 98.2 20 97 Room Air 98.2 Physical Exam General: Alert, Oriented X3, Cooperative Heart: Regular rate, Normal S1, Normal S2 Lungs: Clear, Other Abdomen: Normal bowel sounds, Soft Extremities: No clubbing, No cyanosis Skin: No rashes Labs LABS Laboratory Tests Test 12/13/16 11:50 12/13/16 13:53 12/13/16 15:30 12/13/16 16:48 Urine Collection Type U cath Urine Color Yellow Urine Clarity Clear Urine pH 5.5 Urine Specific [place] 1.015 Urine Protein 30 mg/dL (NEG-TRACE) Urine Glucose (UA) Negative mg/dL (NEG) Urine Ketones (Stick) Negative mg/dL (NEG) Urine Blood Negative (NEG) Urine Nitrite Positive (NEG) Urine Bilirubin Negative (NEG) Urine Urobilinogen Dipstick 0.2 mg/dL (0.2 mg/dL) Urine Leukocyte Esterase Moderate (NEG) Urine RBC Occ /HPF (0-2) Urine WBC 20-40 /HPF (0-4) Urine Squamous Epithelial Cells Few /LPF Urine Bacteria Many /HPF (0-FEW) Urine Mucus Slight /LPF Lactic Acid Level 1.1 mmol/L (0.4-2.0) 0.9 mmol/L (0.4-2.0) Procalcitonin < 0.10 ng/mL (0.00-0.10) Glucose (Fingerstick) 182 mg/dL (70-99) Test 12/13/16 20:45 12/14/16 04:55 12/14/16 07:18 Glucose (Fingerstick) 204 mg/dL (70-99) 124 mg/dL (70-99) White Blood Count 16.9 x10^3/uL (4.0-11.0) Red Blood Count 3.53 x10^6/uL (3.50-5.40) Hemoglobin 9.3 g/dL (12.0-15.5) Hematocrit 29.2 % (36.0-47.0) Mean Corpuscular Volume 83 fL (79-100) Mean Corpuscular Hemoglobin 26 pg (25-35) Mean Corpuscular Hemoglobin Concent 32 g/dL (31-37) Red Cell Distribution Width 14.4 % (11.5-14.5) Platelet Count 404 x10^3/uL (140-400) Neutrophils (%) (Auto) 78 % (31-73) Lymphocytes (%) (Auto) 15 % (24-48) Monocytes (%) (Auto) 7 % (0-9) Eosinophils (%) (Auto) 1 % (0-3) Basophils (%) (Auto) 0 % (0-3) Neutrophils # (Auto) 13.2 x10^3uL (1.8-7.7) Lymphocytes # (Auto) 2.5 x10^3/uL (1.0-4.8) Monocytes # (Auto) 1.1 x10^3/uL (0.0-1.1) Eosinophils # (Auto) 0.2 x10^3/uL (0.0-0.7) Basophils # (Auto) 0.0 x10^3/uL (0.0-0.2) Sodium Level 139 mmol/L (136-145) Potassium Level 4.3 mmol/L (3.5-5.1) Chloride Level 105 mmol/L (98-107) Carbon Dioxide Level 28 mmol/L (21-32) Anion Gap 6 (6-14) Blood Urea Nitrogen 20 mg/dL (7-20) Creatinine 1.1 mg/dL (0.6-1.0) Estimated GFR (Cockcroft-Gault) 50.2 Glucose Level 122 mg/dL (70-99) Calcium Level 9.1 mg/dL (8.5-10.1) Review of Systems Review of Systems no fever, chills, sob or chest pain Assessment and Plan Assessmemt and Plan Problems Medical Problems: (1) Epigastric abdominal pain Status: Acute (2) Intractable nausea and vomiting Status: Acute (3) Leukocytosis Status: Acute (4) Sepsis Status: Acute Problems: Comment Review of Relevant I have reviewed the following items prashanth (where applicable) has been applied. Labs Laboratory Tests Test 12/13/16 10:45 12/13/16 11:50 12/13/16 13:53 12/13/16 15:30 White Blood Count 21.7 x10^3/uL (4.0-11.0) Red Blood Count 3.83 x10^6/uL (3.50-5.40) Hemoglobin 10.6 g/dL (12.0-15.5) Hematocrit 30.8 % (36.0-47.0) Mean Corpuscular Volume 81 fL (79-100) Mean Corpuscular Hemoglobin 28 pg (25-35) Mean Corpuscular Hemoglobin Concent 34 g/dL (31-37) Red Cell Distribution Width 13.8 % (11.5-14.5) Platelet Count 479 x10^3/uL (140-400) Neutrophils (%) (Auto) 86 % (31-73) Lymphocytes (%) (Auto) 9 % (24-48) Monocytes (%) (Auto) 5 % (0-9) Eosinophils (%) (Auto) 0 % (0-3) Basophils (%) (Auto) 0 % (0-3) Neutrophils # (Auto) 18.6 x10^3uL (1.8-7.7) Lymphocytes # (Auto) 2.0 x10^3/uL (1.0-4.8) Monocytes # (Auto) 1.1 x10^3/uL (0.0-1.1) Eosinophils # (Auto) 0.0 x10^3/uL (0.0-0.7) Basophils # (Auto) 0.0 x10^3/uL (0.0-0.2) Segmented Neutrophils % 83 % (35-66) Band Neutrophils % 3 % (0-9) Lymphocytes % 9 % (24-48) Monocytes % 2 % (0-10) Myelocytes % 3 % (0-0) Hypersegmented Neutrophils Present Platelet Estimate Increased (ADEQUATE) Prothrombin Time 13.1 SEC (11.7-14.0) Prothromb Time International Ratio 1.1 (0.8-1.1) Activated Partial Thromboplast Time 28 SEC (24-38) Sodium Level 138 mmol/L (136-145) Potassium Level 4.3 mmol/L (3.5-5.1) Chloride Level 101 mmol/L (98-107) Carbon Dioxide Level 29 mmol/L (21-32) Anion Gap 8 (6-14) Blood Urea Nitrogen 25 mg/dL (7-20) Creatinine 1.1 mg/dL (0.6-1.0) Estimated GFR (Cockcroft-Gault) 50.2 BUN/Creatinine Ratio 23 (6-20) Glucose Level 187 mg/dL (70-99) Calcium Level 9.6 mg/dL (8.5-10.1) Magnesium Level 1.9 mg/dL (1.8-2.4) Total Bilirubin 0.5 mg/dL (0.2-1.0) Aspartate Amino Transf (AST/SGOT) 29 U/L (15-37) Alanine Aminotransferase (ALT/SGPT) 56 U/L (14-59) Alkaline Phosphatase 81 U/L (46-116) Creatine Kinase 123 U/L (26-192) Creatine Kinase MB (Mass) 1.5 ng/mL (0.0-3.6) Creatine Kinase MB Relative Index 1.2 % (0-4) Troponin I Quantitative < 0.017 ng/mL (0.000-0.055) CK-Eku-Y-Type Natriuretic Peptide 1301 pg/mL (0-124) Total Protein 7.7 g/dL (6.4-8.2) Albumin 3.4 g/dL (3.4-5.0) Albumin/Globulin Ratio 0.8 (1.0-1.7) Lipase 135 U/L (73-393) Urine Collection Type U cath Urine Color Yellow Urine Clarity Clear Urine pH 5.5 Urine Specific [place] 1.015 Urine Protein 30 mg/dL (NEG-TRACE) Urine Glucose (UA) Negative mg/dL (NEG) Urine Ketones (Stick) Negative mg/dL (NEG) Urine Blood Negative (NEG) Urine Nitrite Positive (NEG) Urine Bilirubin Negative (NEG) Urine Urobilinogen Dipstick 0.2 mg/dL (0.2 mg/dL) Urine Leukocyte Esterase Moderate (NEG) Urine RBC Occ /HPF (0-2) Urine WBC 20-40 /HPF (0-4) Urine Squamous Epithelial Cells Few /LPF Urine Bacteria Many /HPF (0-FEW) Urine Mucus Slight /LPF Lactic Acid Level 1.1 mmol/L (0.4-2.0) 0.9 mmol/L (0.4-2.0) Procalcitonin < 0.10 ng/mL (0.00-0.10) Test 12/13/16 16:48 12/13/16 20:45 12/14/16 04:55 12/14/16 07:18 Glucose (Fingerstick) 182 mg/dL (70-99) 204 mg/dL (70-99) 124 mg/dL (70-99) White Blood Count 16.9 x10^3/uL (4.0-11.0) Red Blood Count 3.53 x10^6/uL (3.50-5.40) Hemoglobin 9.3 g/dL (12.0-15.5) Hematocrit 29.2 % (36.0-47.0) Mean Corpuscular Volume 83 fL (79-100) Mean Corpuscular Hemoglobin 26 pg (25-35) Mean Corpuscular Hemoglobin Concent 32 g/dL (31-37) Red Cell Distribution Width 14.4 % (11.5-14.5) Platelet Count 404 x10^3/uL (140-400) Neutrophils (%) (Auto) 78 % (31-73) Lymphocytes (%) (Auto) 15 % (24-48) Monocytes (%) (Auto) 7 % (0-9) Eosinophils (%) (Auto) 1 % (0-3) Basophils (%) (Auto) 0 % (0-3) Neutrophils # (Auto) 13.2 x10^3uL (1.8-7.7) Lymphocytes # (Auto) 2.5 x10^3/uL (1.0-4.8) Monocytes # (Auto) 1.1 x10^3/uL (0.0-1.1) Eosinophils # (Auto) 0.2 x10^3/uL (0.0-0.7) Basophils # (Auto) 0.0 x10^3/uL (0.0-0.2) Sodium Level 139 mmol/L (136-145) Potassium Level 4.3 mmol/L (3.5-5.1) Chloride Level 105 mmol/L (98-107) Carbon Dioxide Level 28 mmol/L (21-32) Anion Gap 6 (6-14) Blood Urea Nitrogen 20 mg/dL (7-20) Creatinine 1.1 mg/dL (0.6-1.0) Estimated GFR (Cockcroft-Gault) 50.2 Glucose Level 122 mg/dL (70-99) Calcium Level 9.1 mg/dL (8.5-10.1) Laboratory Tests Test 12/13/16 11:50 12/13/16 13:53 12/13/16 15:30 12/13/16 16:48 Urine Collection Type U cath Urine Color Yellow Urine Clarity Clear Urine pH 5.5 Urine Specific [place] 1.015 Urine Protein 30 mg/dL (NEG-TRACE) Urine Glucose (UA) Negative mg/dL (NEG) Urine Ketones (Stick) Negative mg/dL (NEG) Urine Blood Negative (NEG) Urine Nitrite Positive (NEG) Urine Bilirubin Negative (NEG) Urine Urobilinogen Dipstick 0.2 mg/dL (0.2 mg/dL) Urine Leukocyte Esterase Moderate (NEG) Urine RBC Occ /HPF (0-2) Urine WBC 20-40 /HPF (0-4) Urine Squamous Epithelial Cells Few /LPF Urine Bacteria Many /HPF (0-FEW) Urine Mucus Slight /LPF Lactic Acid Level 1.1 mmol/L (0.4-2.0) 0.9 mmol/L (0.4-2.0) Procalcitonin < 0.10 ng/mL (0.00-0.10) Glucose (Fingerstick) 182 mg/dL (70-99) Test 12/13/16 20:45 12/14/16 04:55 12/14/16 07:18 Glucose (Fingerstick) 204 mg/dL (70-99) 124 mg/dL (70-99) White Blood Count 16.9 x10^3/uL (4.0-11.0) Red Blood Count 3.53 x10^6/uL (3.50-5.40) Hemoglobin 9.3 g/dL (12.0-15.5) Hematocrit 29.2 % (36.0-47.0) Mean Corpuscular Volume 83 fL (79-100) Mean Corpuscular Hemoglobin 26 pg (25-35) Mean Corpuscular Hemoglobin Concent 32 g/dL (31-37) Red Cell Distribution Width 14.4 % (11.5-14.5) Platelet Count 404 x10^3/uL (140-400) Neutrophils (%) (Auto) 78 % (31-73) Lymphocytes (%) (Auto) 15 % (24-48) Monocytes (%) (Auto) 7 % (0-9) Eosinophils (%) (Auto) 1 % (0-3) Basophils (%) (Auto) 0 % (0-3) Neutrophils # (Auto) 13.2 x10^3uL (1.8-7.7) Lymphocytes # (Auto) 2.5 x10^3/uL (1.0-4.8) Monocytes # (Auto) 1.1 x10^3/uL (0.0-1.1) Eosinophils # (Auto) 0.2 x10^3/uL (0.0-0.7) Basophils # (Auto) 0.0 x10^3/uL (0.0-0.2) Sodium Level 139 mmol/L (136-145) Potassium Level 4.3 mmol/L (3.5-5.1) Chloride Level 105 mmol/L (98-107) Carbon Dioxide Level 28 mmol/L (21-32) Anion Gap 6 (6-14) Blood Urea Nitrogen 20 mg/dL (7-20) Creatinine 1.1 mg/dL (0.6-1.0) Estimated GFR (Cockcroft-Gault) 50.2 Glucose Level 122 mg/dL (70-99) Calcium Level 9.1 mg/dL (8.5-10.1) Medications Current Medications Ondansetron HCl (Zofran) 4 mg 1X ONCE IV Last administered on 12/13/16 10:54; Start 12/13/16 at 10:45; Stop 12/13/16 at 10:46; Status DC Famotidine (Pepcid) 20 mg 1X ONCE IVP Last administered on 12/13/16 10:56; Start 12/13/16 at 10:45; Stop 12/13/16 at 10:46; Status DC Sodium Chloride 1,000 ml @ 1,000 mls/hr 1X ONCE IV Last administered on 10:54; Start 12/13/16 at 10:45; Stop 12/13/16 at 11:44; Status DC Hydralazine HCl (Apresoline) 10 mg 1X ONCE IVP Last administered on 12/13/16 12:10; Start 12/13/16 at 11:30; Stop 12/13/16 at 11:31; Status DC Metoprolol Tartrate (Lopressor) 5 mg 1X ONCE IVP Last administered on 12:11; Start 12/13/16 at 11:30; Stop 12/13/16 at 11:31; Status DC Iohexol (Omnipaque 300 Mg/ml) 60 ml 1X ONCE IV Last administered on 12/13/16 12:18; Start 12/13/16 at 12:00; Stop 12/13/16 at 12:01; Status DC Info (Do NOT chart on this entry -- for MONITORING) 1 each PRN DAILY PRN MC SEE COMMENTS; Start 12/13/16 at 12:00; Stop 12/15/16 at 11:59 Ondansetron HCl (Zofran) 4 mg PRN Q8HRS PRN IV NAUSEA/VOMITING; Start 12/13/16 at 13:30; Stop 12/14/16 at 13:29 Morphine Sulfate 4 mg PRN Q2HR PRN IV PAIN; Start 12/13/16 at 13:30; Stop at 13:29 Sodium Chloride 1,000 ml @ 125 mls/hr 1X ONCE IV Last administered on 14:36; Start 12/13/16 at 13:30; Stop 12/13/16 at 21:29; Status DC Levofloxacin/ Dextrose 100 ml @ 100 mls/hr Q24H IV Last administered on 14:37; Start 12/13/16 at 14:00; Stop 12/13/16 at 16:35; Status DC Famotidine (Pepcid) 20 mg BID IVP ; Start 12/13/16 at 21:00; Stop 12/13/16 at 21: 00; Status DC Prochlorperazine Edisylate (Compazine) 10 mg PRN Q8HRS PRN IV NAUSEA/VOMITING; Start 12/13/16 at 13:30 Amlodipine Besylate (Norvasc) 10 mg DAILY PO Last administered on 12/14/16 11: 01; Start 12/14/16 at 09:00 Aspirin (Ecotrin) 81 mg DAILY PO Last administered on 12/14/16 11:00; Start 12/14/16 at 09:00 Atorvastatin Calcium (Lipitor) 20 mg HS PO Last administered on 12/13/16 20:46 ; Start 12/13/16 at 21:00 Citalopram Hydrobromide (CeleXA) 20 mg DAILY PO Last administered on 12/14/16 10:58; Start 12/14/16 at 09:00 Clopidogrel Bisulfate (Plavix) 75 mg DAILY PO Last administered on 12/14/16 11: 00; Start 12/14/16 at 09:00 Hydralazine HCl (Apresoline) 25 mg QID PO Last administered on 12/14/16 11:00; Start 12/13/16 at 17:00 Metoprolol Succinate (Toprol Xl) 100 mg DAILY PO Last administered on 12/14/16 11:01; Start 12/14/16 at 09:00 Pantoprazole Sodium (Protonix) 40 mg DAILYAC PO Last administered on 12/14/16 10:58; Start 12/14/16 at 07:30 Non-Formulary Medication 30 unit QHS SQ ; Start 12/13/16 at 21:00; Stop 12/13/16 at 21:00; Status DC Losartan Potassium (Cozaar) 100 mg DAILY PO Last administered on 12/14/16 10:59 ; Start 12/14/16 at 09:00 Multivitamins (Thera M Plus) 1 tab DAILY PO Last administered on 12/14/16 10:59 ; Start 12/14/16 at 09:00 Fish Oil (Fish Oil) 1,000 mg BID PO Last administered on 12/14/16 10:58; Start 12/13/16 at 21:00 Spironolactone (Aldactone) 50 mg DAILY PO Last administered on 12/14/16 10:59; Start 12/14/16 at 09:00 Enoxaparin Sodium (Lovenox 30mg Syringe) 40 mg Q24H SQ Last administered on 12/13 18:17; Start 12/13/16 at 17:00 Insulin Aspart (NovoLOG) 0-9 UNITS TIDWMEALS SQ ; Start 12/13/16 at 17:00 Dextrose (Dextrose 50%-Water Syringe) 12.5 gm PRN Q15MIN PRN IV SEE COMMENTS; Start 12/13/16 at 16:30 Ceftriaxone Sodium 1 gm/ Sodium Chloride 50 ml @ 100 mls/hr Q24H IV Last administered on 12/13/16 18:15; Start 12/13/16 at 17:00 Dextrose (Dextrose 50%-Water Syringe) 12.5 gm PRN Q15MIN PRN IV SEE COMMENTS; Start 12/13/16 at 16:30; Stop 12/13/16 at 16:37; Status DC Acetaminophen (Tylenol) 650 mg PRN Q6HRS PRN PO FEVER Last administered on 22:24; Start 12/13/16 at 16:30 Ondansetron HCl (Zofran) 4 mg PRN Q6HRS PRN IV NAUSEA/VOMITING; Start 12/13/16 at 16:30 Morphine Sulfate 2 mg PRN Q2HR PRN IV PAIN; Start 12/13/16 at 16:30 Tramadol HCl (Ultram) 50 mg PRN Q6HRS PRN PO PAIN; Start 12/13/16 at 16:30 Hydralazine HCl (Apresoline) 10 mg PRN Q4HRS PRN IVP ELEVATED BP, SEE COMMENTS ; Start 12/13/16 at 16:30 Docusate Sodium (Colace) 100 mg PRN DAILY PRN PO CONSTIPATION; Start 12/13/16 at 16:30 Insulin Detemir (Levemir) 15 units QHS SQ Last administered on 12/13/16 20:53; Start 12/13/16 at 21:00; Stop 12/14/16 at 10:22; Status DC Famotidine (Pepcid) 20 mg QHS PO ; Start 12/13/16 at 21:00; Stop 12/13/16 at 21:00 ; Status DC Insulin Detemir (Levemir) 20 units QHS SQ ; Start 12/14/16 at 21:00 Active Scripts Active Cyclobenzaprine Hcl 5 Mg Tablet 1 Tab PO TID PRN One pill by mouth up to 3 times daily as needed for muscle spasm and pain. Caution with use of this medication as it may cause drowsiness. Do not drive or operate machinery while using cyclobenzaprine. Reported Pantoprazole Sodium 40 Mg Tablet.dr 40 Mg PO DAILY Metoprolol Succinate ( Xl ) (Metoprolol Succinate) 100 Mg Tab.er.24h 100 Mg PO DAILY Hydralazine Hcl 25 Mg Tablet 25 Mg PO QID Lantus (Insulin Glargine,Hum.rec.anlog) 100 Unit/1 Ml Vial 30 Unit SQ QHS Aspir 81 (Aspirin) 81 Mg Tablet.dr 81 Mg PO DAILY Vitamin D (Cholecalciferol (Vitamin D3)) 2,000 Unit Capsule 1 Cap PO DAILY Fish Oil 1,000 Mg Softgel ([place]-3 Fatty Acids/Fish Oil) 1 Each Capsule 1 Each PO BID Tylenol (Acetaminophen) 325 Mg Tablet 650 Mg PO BID Atorvastatin Calcium 20 Mg Tablet 1 Tab PO HS Tylenol (Acetaminophen) 325 Mg Tablet 1-2 Tab PO PRN QID PRN Celexa (Citalopram Hydrobromide) 20 Mg Tablet 1 Tab PO DAILY Multivitamins (Multivitamin) 1 Each Tablet 1 Tab PO DAILY Clopidogrel (Clopidogrel Bisulfate) 75 Mg Tablet 1 Tab PO DAILY Amlodipine Besylate 10 Mg Tablet 10 Mg PO DAILY Losartan Potassium 100 Mg Tablet 100 Mg PO DAILY Spironolactone 50 Mg Tablet 1 Tab PO DAILY Vitals/I & O Vital Sign - Last 24 Hours 12/13/16 12/13/16 12/13/16 12/13/16 12:07 12:10 12:11 12:40 Pulse 72 74 74 75 Resp 18 18 B/P (MAP) 171/75 (107) 171/75 171/75 167/74 (105) Pulse Ox 96 98 O2 Delivery Room Air Room Air 12/13/16 12/13/16 12/13/16 12/13/16 15:00 15:39 18:15 19:50 Temp 98.3 98.1 98.3 98.1 Pulse 74 74 83 Resp 20 18 B/P (MAP) 155/63 (93) 155/63 148/49 (82) Pulse Ox 97 96 O2 Delivery Room Air Room Air Room Air 12/13/16 12/13/16 12/13/16 12/14/16 20:15 20:46 23:52 03:56 Temp 98.5 98.2 98.5 98.2 Pulse 83 74 72 Resp 18 16 B/P (MAP) 148/49 151/67 (95) 140/50 (80) Pulse Ox 93 98 O2 Delivery Room Air Room Air Room Air 12/14/16 12/14/16 12/14/16 12/14/16 07:00 08:00 10:59 11:00 Temp 98.4 98.4 Pulse 65 65 65 Resp 20 B/P (MAP) 157/73 (101) 157/73 157/73 Pulse Ox 96 O2 Delivery Room Air Room Air 12/14/16 12/14/16 12/14/16 11:00 11:01 11:01 Temp 98.2 98.2 Pulse 67 65 65 Resp 20 B/P (MAP) 179/96 (123) 157/73 157/73 Pulse Ox 97 O2 Delivery Room Air Intake and Output 12/13/16 12/13/16 12/14/16 15:00 23:00 07:00 Intake Total 1000 ml 660 ml 480 ml Balance 1000 ml 660 ml 480 ml TOSHIA RIANES MD Dec 14, 2016 11:33
[2016-12-14] MEDS: ONDANSETRON PF 4 MG/2 ML VIAL. IV PRN ×2 (12:32→18:27)
[2016-12-14 15:00] VITALS: BP 171/66
[2016-12-14 19:00] VITALS: BP 180/72
[2016-12-14] MEDS: ATORVASTATIN CALCIUM 20 MG TABLET PO SCH (19:43)
[2016-12-14] MEDS: ENOXAPARIN 40 MG/0.4 ML SYRINGE. SQ SCH (19:43)
[2016-12-14] MEDS: INSULIN DETEMIR 300 UNITS/3 ML INSULN.PEN. SQ SCH (21:33)
[2016-12-14 23:00] VITALS: BP 179/70
[2016-12-15 03:00] VITALS: BP 128/52
[2016-12-15 04:43] LABS: CALCIUM 8.6 mg/dL (8.5-10.1); POTASSIUM 4.3 mmol/L (3.5-5.1)
[2016-12-15 04:56] LABS: BASO # 0.1 x10^3/uL (0.0-0.2); BASO % 0 % (0-3); EOS % 1 % (0-3); HEMATOCRIT 29.9 % (36.0-47.0); HEMOGLOBIN 9.6 g/dL (12.0-15.5); LYMPH # 3.2 x10^3/uL (1.0-4.8); LYMPH % 20 % (24-48); MEAN CORPUSCULAR HEMOGLOBIN 27 pg (25-35); MEAN CORPUSCULAR HGB CONC 32 g/dL (31-37); MEAN CORPUSCULAR VOLUME 82 fL (79-100); MONO % 7 % (0-9); NEUT % 72 % (31-73); PLATELET COUNT 408 x10^3/uL (140-400); RED BLOOD COUNT 3.63 x10^6/uL (3.50-5.40); RED CELL DISTRIBUTION WIDTH 14.4 % (11.5-14.5); WHITE BLOOD COUNT 16.2 x10^3/uL (4.0-11.0)
[2016-12-15 07:02] VITALS: BP 122/54
[2016-12-15] MEDS: INSULIN ASPART 300 UNITS/3 ML INSULN.PEN SQ SCH ×3 (08:00→17:00)
[2016-12-15] MEDS: SPIRONOLACTONE 25 MG TABLET PO SCH (08:56)
[2016-12-15] MEDS: CLOPIDOGREL BISULFATE 75 MG TABLET PO SCH (08:57)
[2016-12-15] MEDS: amLODIPine BESYLATE 10 MG TABLET PO SCH (08:57)
[2016-12-15] MEDS: PANTOPRAZOLE 40 MG TABLET.DR. PO SCH (08:57)
[2016-12-15] MEDS: hydrALAZINE 25 MG TABLET PO SCH ×4 (08:57→20:25)
[2016-12-15] MEDS: MULTIVITAMIN with MINERAL TABLET. PO SCH (08:57)
[2016-12-15] MEDS: LOSARTAN POTASSIUM 50 MG TABLET. PO SCH (08:58)
[2016-12-15] MEDS: CITALOPRAM 20 MG TABLET. PO SCH (08:58)
[2016-12-15] MEDS: OMEGA-3 FATTY ACIDS/FISH OIL 1,000 MG CAPSULE. PO SCH ×2 (08:58→20:24)
[2016-12-15] MEDS: METOPROLOL SUCC 24HR ER 100 MG TAB.ER.24H. PO SCH (08:59)
[2016-12-15] MEDS: ASPIRIN ENTERIC COATED 81 MG TABLET.DR. PO SCH (08:59)
[2016-12-15] MEDS: ENOXAPARIN 40 MG/0.4 ML SYRINGE. SQ SCH ×2 (08:59→20:25)
[2016-12-15] MEDS ORDERED: METOCLOPRAMIDE HCL 10 MG/2 ML VIAL. IV PRN (11:00)
[2016-12-15 11:05] VITALS: BP 146/60
--- NOTE | 2016-12-15 13:05 | PDOC ---
PROGRESS NOTES Chief Complaint Chief Complaint N/V, 2/2 severe gastroparesis Possible UTI chronic urinary and BM incontinence PAFIB HTN DM2 morbid obesity BMI 41 h/o CVA CKD3 SIRS with possible UTI PLAN: gi consult pending advance to gi soft decrease levemir to 20u qhs, for now, SSI GES cont home meds ceftriaxone for now, fu ucx PTOT dvt, gi ppx dc tmr hope with ucx back and better wbc, add reglan prn .told pt to eat small amount of food each time. History of Present Illness History of Present Illness N/V better yesterday after GES, but worse at night. today ok GES + gastraparesis wbc still 16, ucx pending Vitals Vitals Vital Signs Date Time Temp Pulse Resp B/P (MAP) Pulse Ox O2 Delivery O2 Flow Rate FiO2 12/15/16 11:05 98.6 63 20 146/60 (88) 96 Room Air 98.6 Physical Exam General: Alert, Oriented X3, Cooperative Heart: Regular rate, Normal S1, Normal S2 Lungs: Clear, Other Abdomen: Normal bowel sounds, Soft Extremities: No clubbing, No cyanosis Skin: No rashes Labs LABS Laboratory Tests Test 12/14/16 17:14 12/14/16 21:05 12/15/16 04:05 12/15/16 07:13 Glucose (Fingerstick) 207 mg/dL (70-99) 193 mg/dL (70-99) 116 mg/dL (70-99) White Blood Count 16.2 x10^3/uL (4.0-11.0) Red Blood Count 3.63 x10^6/uL (3.50-5.40) Hemoglobin 9.6 g/dL (12.0-15.5) Hematocrit 29.9 % (36.0-47.0) Mean Corpuscular Volume 82 fL (79-100) Mean Corpuscular Hemoglobin 27 pg (25-35) Mean Corpuscular Hemoglobin Concent 32 g/dL (31-37) Red Cell Distribution Width 14.4 % (11.5-14.5) Platelet Count 408 x10^3/uL (140-400) Neutrophils (%) (Auto) 72 % (31-73) Lymphocytes (%) (Auto) 20 % (24-48) Monocytes (%) (Auto) 7 % (0-9) Eosinophils (%) (Auto) 1 % (0-3) Basophils (%) (Auto) 0 % (0-3) Neutrophils # (Auto) 11.6 x10^3uL (1.8-7.7) Lymphocytes # (Auto) 3.2 x10^3/uL (1.0-4.8) Monocytes # (Auto) 1.1 x10^3/uL (0.0-1.1) Eosinophils # (Auto) 0.2 x10^3/uL (0.0-0.7) Basophils # (Auto) 0.1 x10^3/uL (0.0-0.2) Sodium Level 140 mmol/L (136-145) Potassium Level 4.3 mmol/L (3.5-5.1) Chloride Level 105 mmol/L (98-107) Carbon Dioxide Level 28 mmol/L (21-32) Anion Gap 7 (6-14) Blood Urea Nitrogen 20 mg/dL (7-20) Creatinine 1.0 mg/dL (0.6-1.0) Estimated GFR (Cockcroft-Gault) 56.0 Glucose Level 131 mg/dL (70-99) Calcium Level 8.6 mg/dL (8.5-10.1) Test 12/15/16 11:48 Glucose (Fingerstick) 172 mg/dL (70-99) Review of Systems Review of Systems no fever, chills, sob or chest pain Assessment and Plan Assessmemt and Plan Problems Medical Problems: (1) Epigastric abdominal pain Status: Acute (2) Intractable nausea and vomiting Status: Acute (3) Leukocytosis Status: Acute (4) Sepsis Status: Acute Problems: Comment Review of Relevant I have reviewed the following items prashanth (where applicable) has been applied. Labs Laboratory Tests Test 12/13/16 13:53 12/13/16 15:30 12/13/16 16:48 12/13/16 20:45 Lactic Acid Level 1.1 mmol/L (0.4-2.0) 0.9 mmol/L (0.4-2.0) Procalcitonin < 0.10 ng/mL (0.00-0.10) Glucose (Fingerstick) 182 mg/dL (70-99) 204 mg/dL (70-99) Test 12/14/16 04:55 12/14/16 07:18 12/14/16 11:36 12/14/16 17:14 White Blood Count 16.9 x10^3/uL (4.0-11.0) Red Blood Count 3.53 x10^6/uL (3.50-5.40) Hemoglobin 9.3 g/dL (12.0-15.5) Hematocrit 29.2 % (36.0-47.0) Mean Corpuscular Volume 83 fL (79-100) Mean Corpuscular Hemoglobin 26 pg (25-35) Mean Corpuscular Hemoglobin Concent 32 g/dL (31-37) Red Cell Distribution Width 14.4 % (11.5-14.5) Platelet Count 404 x10^3/uL (140-400) Neutrophils (%) (Auto) 78 % (31-73) Lymphocytes (%) (Auto) 15 % (24-48) Monocytes (%) (Auto) 7 % (0-9) Eosinophils (%) (Auto) 1 % (0-3) Basophils (%) (Auto) 0 % (0-3) Neutrophils # (Auto) 13.2 x10^3uL (1.8-7.7) Lymphocytes # (Auto) 2.5 x10^3/uL (1.0-4.8) Monocytes # (Auto) 1.1 x10^3/uL (0.0-1.1) Eosinophils # (Auto) 0.2 x10^3/uL (0.0-0.7) Basophils # (Auto) 0.0 x10^3/uL (0.0-0.2) Sodium Level 139 mmol/L (136-145) Potassium Level 4.3 mmol/L (3.5-5.1) Chloride Level 105 mmol/L (98-107) Carbon Dioxide Level 28 mmol/L (21-32) Anion Gap 6 (6-14) Blood Urea Nitrogen 20 mg/dL (7-20) Creatinine 1.1 mg/dL (0.6-1.0) Estimated GFR (Cockcroft-Gault) 50.2 Glucose Level 122 mg/dL (70-99) Calcium Level 9.1 mg/dL (8.5-10.1) Glucose (Fingerstick) 124 mg/dL (70-99) 143 mg/dL (70-99) 207 mg/dL (70-99) Test 12/14/16 21:05 12/15/16 04:05 12/15/16 07:13 12/15/16 11:48 Glucose (Fingerstick) 193 mg/dL (70-99) 116 mg/dL (70-99) 172 mg/dL (70-99) White Blood Count 16.2 x10^3/uL (4.0-11.0) Red Blood Count 3.63 x10^6/uL (3.50-5.40) Hemoglobin 9.6 g/dL (12.0-15.5) Hematocrit 29.9 % (36.0-47.0) Mean Corpuscular Volume 82 fL (79-100) Mean Corpuscular Hemoglobin 27 pg (25-35) Mean Corpuscular Hemoglobin Concent 32 g/dL (31-37) Red Cell Distribution Width 14.4 % (11.5-14.5) Platelet Count 408 x10^3/uL (140-400) Neutrophils (%) (Auto) 72 % (31-73) Lymphocytes (%) (Auto) 20 % (24-48) Monocytes (%) (Auto) 7 % (0-9) Eosinophils (%) (Auto) 1 % (0-3) Basophils (%) (Auto) 0 % (0-3) Neutrophils # (Auto) 11.6 x10^3uL (1.8-7.7) Lymphocytes # (Auto) 3.2 x10^3/uL (1.0-4.8) Monocytes # (Auto) 1.1 x10^3/uL (0.0-1.1) Eosinophils # (Auto) 0.2 x10^3/uL (0.0-0.7) Basophils # (Auto) 0.1 x10^3/uL (0.0-0.2) Sodium Level 140 mmol/L (136-145) Potassium Level 4.3 mmol/L (3.5-5.1) Chloride Level 105 mmol/L (98-107) Carbon Dioxide Level 28 mmol/L (21-32) Anion Gap 7 (6-14) Blood Urea Nitrogen 20 mg/dL (7-20) Creatinine 1.0 mg/dL (0.6-1.0) Estimated GFR (Cockcroft-Gault) 56.0 Glucose Level 131 mg/dL (70-99) Calcium Level 8.6 mg/dL (8.5-10.1) Laboratory Tests Test 12/14/16 17:14 12/14/16 21:05 12/15/16 04:05 12/15/16 07:13 Glucose (Fingerstick) 207 mg/dL (70-99) 193 mg/dL (70-99) 116 mg/dL (70-99) White Blood Count 16.2 x10^3/uL (4.0-11.0) Red Blood Count 3.63 x10^6/uL (3.50-5.40) Hemoglobin 9.6 g/dL (12.0-15.5) Hematocrit 29.9 % (36.0-47.0) Mean Corpuscular Volume 82 fL (79-100) Mean Corpuscular Hemoglobin 27 pg (25-35) Mean Corpuscular Hemoglobin Concent 32 g/dL (31-37) Red Cell Distribution Width 14.4 % (11.5-14.5) Platelet Count 408 x10^3/uL (140-400) Neutrophils (%) (Auto) 72 % (31-73) Lymphocytes (%) (Auto) 20 % (24-48) Monocytes (%) (Auto) 7 % (0-9) Eosinophils (%) (Auto) 1 % (0-3) Basophils (%) (Auto) 0 % (0-3) Neutrophils # (Auto) 11.6 x10^3uL (1.8-7.7) Lymphocytes # (Auto) 3.2 x10^3/uL (1.0-4.8) Monocytes # (Auto) 1.1 x10^3/uL (0.0-1.1) Eosinophils # (Auto) 0.2 x10^3/uL (0.0-0.7) Basophils # (Auto) 0.1 x10^3/uL (0.0-0.2) Sodium Level 140 mmol/L (136-145) Potassium Level 4.3 mmol/L (3.5-5.1) Chloride Level 105 mmol/L (98-107) Carbon Dioxide Level 28 mmol/L (21-32) Anion Gap 7 (6-14) Blood Urea Nitrogen 20 mg/dL (7-20) Creatinine 1.0 mg/dL (0.6-1.0) Estimated GFR (Cockcroft-Gault) 56.0 Glucose Level 131 mg/dL (70-99) Calcium Level 8.6 mg/dL (8.5-10.1) Test 12/15/16 11:48 Glucose (Fingerstick) 172 mg/dL (70-99) Microbiology 12/13/16 Blood Culture - Preliminary, Resulted NO GROWTH AFTER 2 DAYS 12/13/16 Urine Culture - Preliminary, Resulted 12/13/16 Urine Culture Result 1 (JES) - Preliminary, Resulted Medications Current Medications Ondansetron HCl (Zofran) 4 mg 1X ONCE IV Last administered on 12/13/16 10:54; Start 12/13/16 at 10:45; Stop 12/13/16 at 10:46; Status DC Famotidine (Pepcid) 20 mg 1X ONCE IVP Last administered on 12/13/16 10:56; Start 12/13/16 at 10:45; Stop 12/13/16 at 10:46; Status DC Sodium Chloride 1,000 ml @ 1,000 mls/hr 1X ONCE IV Last administered on 10:54; Start 12/13/16 at 10:45; Stop 12/13/16 at 11:44; Status DC Hydralazine HCl (Apresoline) 10 mg 1X ONCE IVP Last administered on 12/13/16 12:10; Start 12/13/16 at 11:30; Stop 12/13/16 at 11:31; Status DC Metoprolol Tartrate (Lopressor) 5 mg 1X ONCE IVP Last administered on 12:11; Start 12/13/16 at 11:30; Stop 12/13/16 at 11:31; Status DC Iohexol (Omnipaque 300 Mg/ml) 60 ml 1X ONCE IV Last administered on 12/13/16 12:18; Start 12/13/16 at 12:00; Stop 12/13/16 at 12:01; Status DC Info (Do NOT chart on this entry -- for MONITORING) 1 each PRN DAILY PRN MC SEE COMMENTS; Start 12/13/16 at 12:00; Stop 12/15/16 at 11:59; Status DC Ondansetron HCl (Zofran) 4 mg PRN Q8HRS PRN IV NAUSEA/VOMITING; Start 12/13/16 at 13:30; Stop 12/14/16 at 13:29; Status DC Morphine Sulfate 4 mg PRN Q2HR PRN IV PAIN; Start 12/13/16 at 13:30; Stop at 13:29; Status DC Sodium Chloride 1,000 ml @ 125 mls/hr 1X ONCE IV Last administered on 14:36; Start 12/13/16 at 13:30; Stop 12/13/16 at 21:29; Status DC Levofloxacin/ Dextrose 100 ml @ 100 mls/hr Q24H IV Last administered on 14:37; Start 12/13/16 at 14:00; Stop 12/13/16 at 16:35; Status DC Famotidine (Pepcid) 20 mg BID IVP ; Start 12/13/16 at 21:00; Stop 12/13/16 at 21: 00; Status DC Prochlorperazine Edisylate (Compazine) 10 mg PRN Q8HRS PRN IV NAUSEA/VOMITING, 2ND CHOICE Last administered on 12/14/16 22:51; Start 12/13/16 at 13:30 Amlodipine Besylate (Norvasc) 10 mg DAILY PO Last administered on 12/15/16 08: 57; Start 12/14/16 at 09:00 Aspirin (Ecotrin) 81 mg DAILY PO Last administered on 12/15/16 08:59; Start 12/14/16 at 09:00 Atorvastatin Calcium (Lipitor) 20 mg HS PO Last administered on 12/14/16 19:43 ; Start 12/13/16 at 21:00 Citalopram Hydrobromide (CeleXA) 20 mg DAILY PO Last administered on 12/15/16 08:58; Start 12/14/16 at 09:00 Clopidogrel Bisulfate (Plavix) 75 mg DAILY PO Last administered on 12/15/16 08: 57; Start 12/14/16 at 09:00 Hydralazine HCl (Apresoline) 25 mg QID PO Last administered on 12/15/16 08:57; Start 12/13/16 at 17:00 Metoprolol Succinate (Toprol Xl) 100 mg DAILY PO Last administered on 12/15/16 08:59; Start 12/14/16 at 09:00 Pantoprazole Sodium (Protonix) 40 mg DAILYAC PO Last administered on 12/15/16 08:57; Start 12/14/16 at 07:30 Non-Formulary Medication 30 unit QHS SQ ; Start 12/13/16 at 21:00; Stop 12/13/16 at 21:00; Status DC Losartan Potassium (Cozaar) 100 mg DAILY PO Last administered on 12/15/16 08:58 ; Start 12/14/16 at 09:00 Multivitamins (Thera M Plus) 1 tab DAILY PO Last administered on 12/15/16 08:57 ; Start 12/14/16 at 09:00 Fish Oil (Fish Oil) 1,000 mg BID PO Last administered on 12/15/16 08:58; Start 12/13/16 at 21:00 Spironolactone (Aldactone) 50 mg DAILY PO Last administered on 12/15/16 08:56; Start 12/14/16 at 09:00 Enoxaparin Sodium (Lovenox 30mg Syringe) 40 mg Q24H SQ Last administered on 12/13 18:17; Start 12/13/16 at 17:00; Stop 12/14/16 at 13:45; Status DC Insulin Aspart (NovoLOG) 0-9 UNITS TIDWMEALS SQ Last administered on 12/14/16 18:34; Start 12/13/16 at 17:00 Dextrose (Dextrose 50%-Water Syringe) 12.5 gm PRN Q15MIN PRN IV SEE COMMENTS; Start 12/13/16 at 16:30 Ceftriaxone Sodium 1 gm/ Sodium Chloride 50 ml @ 100 mls/hr Q24H IV Last administered on 12/14/16 18:27; Start 12/13/16 at 17:00 Dextrose (Dextrose 50%-Water Syringe) 12.5 gm PRN Q15MIN PRN IV SEE COMMENTS; Start 12/13/16 at 16:30; Stop 12/13/16 at 16:37; Status DC Acetaminophen (Tylenol) 650 mg PRN Q6HRS PRN PO FEVER Last administered on 22:24; Start 12/13/16 at 16:30 Ondansetron HCl (Zofran) 4 mg PRN Q6HRS PRN IV NAUSEA/VOMITING, 1ST CHOICE Last administered on 12/14/16 18:27; Start 12/13/16 at 16:30 Morphine Sulfate 2 mg PRN Q2HR PRN IV PAIN; Start 12/13/16 at 16:30 Tramadol HCl (Ultram) 50 mg PRN Q6HRS PRN PO PAIN; Start 12/13/16 at 16:30 Hydralazine HCl (Apresoline) 10 mg PRN Q4HRS PRN IVP ELEVATED BP, SEE COMMENTS Last administered on 12/14/16 19:44; Start 12/13/16 at 16:30 Docusate Sodium (Colace) 100 mg PRN DAILY PRN PO CONSTIPATION; Start 12/13/16 at 16:30 Insulin Detemir (Levemir) 15 units QHS SQ Last administered on 12/13/16 20:53; Start 12/13/16 at 21:00; Stop 12/14/16 at 10:22; Status DC Famotidine (Pepcid) 20 mg QHS PO ; Start 12/13/16 at 21:00; Stop 12/13/16 at 21:00 ; Status DC Insulin Detemir (Levemir) 20 units QHS SQ Last administered on 12/14/16 21:33; Start 12/14/16 at 21:00 Enoxaparin Sodium (Lovenox 40mg Syringe) 40 mg BID SQ Last administered on 08:59; Start 12/14/16 at 21:00 Metoclopramide HCl (Reglan) 10 mg PRN Q6HRS PRN IV NAUSEA/VOMITING; Start at 11:00 Active Scripts Active Cyclobenzaprine Hcl 5 Mg Tablet 1 Tab PO TID PRN One pill by mouth up to 3 times daily as needed for muscle spasm and pain. Caution with use of this medication as it may cause drowsiness. Do not drive or operate machinery while using cyclobenzaprine. Reported Pantoprazole Sodium 40 Mg Tablet.dr 40 Mg PO DAILY Metoprolol Succinate ( Xl ) (Metoprolol Succinate) 100 Mg Tab.er.24h 100 Mg PO DAILY Hydralazine Hcl 25 Mg Tablet 25 Mg PO QID Lantus (Insulin Glargine,Hum.rec.anlog) 100 Unit/1 Ml Vial 30 Unit SQ QHS Aspir 81 (Aspirin) 81 Mg Tablet.dr 81 Mg PO DAILY Vitamin D (Cholecalciferol (Vitamin D3)) 2,000 Unit Capsule 1 Cap PO DAILY Fish Oil 1,000 Mg Softgel ([place]-3 Fatty Acids/Fish Oil) 1 Each Capsule 1 Each PO BID Tylenol (Acetaminophen) 325 Mg Tablet 650 Mg PO BID Atorvastatin Calcium 20 Mg Tablet 1 Tab PO HS Tylenol (Acetaminophen) 325 Mg Tablet 1-2 Tab PO PRN QID PRN Celexa (Citalopram Hydrobromide) 20 Mg Tablet 1 Tab PO DAILY Multivitamins (Multivitamin) 1 Each Tablet 1 Tab PO DAILY Clopidogrel (Clopidogrel Bisulfate) 75 Mg Tablet 1 Tab PO DAILY Amlodipine Besylate 10 Mg Tablet 10 Mg PO DAILY Losartan Potassium 100 Mg Tablet 100 Mg PO DAILY Spironolactone 50 Mg Tablet 1 Tab PO DAILY Vitals/I & O Vital Sign - Last 24 Hours 12/14/16 12/14/16 12/14/16 12/14/16 15:00 18:28 19:00 19:44 Temp 98.3 98.2 98.3 98.2 Pulse 80 80 71 71 Resp 20 18 B/P (MAP) 171/66 (101) 171/66 180/72 (108) 180/72 Pulse Ox 97 98 O2 Delivery Room Air Room Air 12/14/16 12/14/16 12/14/16 12/15/16 20:00 21:29 23:00 03:00 Temp 98.5 98.8 98.5 98.8 Pulse 74 78 69 Resp 18 18 B/P (MAP) 145/64 179/70 (106) 128/52 (77) Pulse Ox 96 96 O2 Delivery Room Air Room Air Room Air 12/15/16 12/15/16 12/15/16 12/15/16 07:02 08:00 08:57 08:57 Temp 98.3 98.3 Pulse 60 60 60 Resp 18 B/P (MAP) 122/54 (76) 122/54 122/54 Pulse Ox 97 O2 Delivery Room Air Room Air 12/15/16 12/15/16 12/15/16 08:58 08:59 11:05 Temp 98.6 98.6 Pulse 60 60 63 Resp 20 B/P (MAP) 122/54 122/54 146/60 (88) Pulse Ox 96 O2 Delivery Room Air Intake and Output 12/14/16 12/14/16 12/15/16 15:00 23:00 07:00 Intake Total 750 ml 350 ml Output Total 3 ml Balance 747 ml 350 ml TOSHIA RAINES MD Dec 15, 2016 13:04
[2016-12-15 15:04] VITALS: BP 120/48
[2016-12-15 19:00] VITALS: BP 147/65
[2016-12-15] MEDS: ATORVASTATIN CALCIUM 20 MG TABLET PO SCH (20:24)
[2016-12-15] MEDS: INSULIN DETEMIR 300 UNITS/3 ML INSULN.PEN. SQ SCH (20:32)
[2016-12-15 23:00] VITALS: BP 116/52
[2016-12-16] MEDS: PANTOPRAZOLE 40 MG TABLET.DR. PO SCH (06:20)
[2016-12-16 06:56] LABS: BASO # 0.1 x10^3/uL (0.0-0.2); BASO % 1 % (0-3); EOS % 3 % (0-3); HEMATOCRIT 29.5 % (36.0-47.0); HEMOGLOBIN 9.5 g/dL (12.0-15.5); LYMPH # 4.4 x10^3/uL (1.0-4.8); LYMPH % 25 % (24-48); MEAN CORPUSCULAR HEMOGLOBIN 27 pg (25-35); MEAN CORPUSCULAR HGB CONC 32 g/dL (31-37); MEAN CORPUSCULAR VOLUME 83 fL (79-100); MONO % 8 % (0-9); NEUT % 64 % (31-73); PLATELET COUNT 394 x10^3/uL (140-400); RED BLOOD COUNT 3.56 x10^6/uL (3.50-5.40); RED CELL DISTRIBUTION WIDTH 14.2 % (11.5-14.5); WHITE BLOOD COUNT 17.2 x10^3/uL (4.0-11.0)
[2016-12-16 07:04] LABS: CALCIUM 8.8 mg/dL (8.5-10.1); POTASSIUM 4.7 mmol/L (3.5-5.1)
[2016-12-16 07:20] VITALS: BP 171/54
--- NOTE | 2016-12-16 07:30 | PDOC ---
PROGRESS NOTES Chief Complaint Chief Complaint cc: nausea and vomiting A/P N/V, 2/2 severe gastroparesis Better. Ecoli UTI. chronic urinary and BM incontinence PAFIB HTN DM2 morbid obesity BMI 41 h/o CVA CKD3 PLAN: Able to eat well, no nausea or vomiting BP not cotrolled recheck BP again GI consult noted bcx no growth todate needs out pt follow up with pcp. d/w at bedside. History of Present Illness History of Present Illness no fever no N/V doing better. Vitals Vitals Vital Signs Date Time Temp Pulse Resp B/P (MAP) Pulse Ox O2 Delivery O2 Flow Rate FiO2 12/16/16 03:12 19 Room Air 12/15/16 23:00 98.4 66 116/52 (73) 96 98.4 Physical Exam General: Alert, Oriented X3, Cooperative Heart: Regular rate, Normal S1, Normal S2 Lungs: Clear, Other Abdomen: Normal bowel sounds, Soft Extremities: No clubbing, No cyanosis Skin: No rashes Labs LABS Laboratory Tests Test 12/15/16 11:48 12/15/16 17:03 12/15/16 20:23 12/16/16 06:00 Glucose (Fingerstick) 172 mg/dL (70-99) 135 mg/dL (70-99) 180 mg/dL (70-99) Sodium Level 140 mmol/L (136-145) Potassium Level 4.7 mmol/L (3.5-5.1) Chloride Level 105 mmol/L (98-107) Carbon Dioxide Level 29 mmol/L (21-32) Anion Gap 6 (6-14) Blood Urea Nitrogen 21 mg/dL (7-20) Creatinine 1.0 mg/dL (0.6-1.0) Estimated GFR (Cockcroft-Gault) 56.0 Glucose Level 101 mg/dL (70-99) Calcium Level 8.8 mg/dL (8.5-10.1) Assessment and Plan Assessmemt and Plan Problems Medical Problems: (1) Epigastric abdominal pain Status: Acute (2) Intractable nausea and vomiting Status: Acute (3) Leukocytosis Status: Acute (4) Sepsis Status: Acute Problems: Comment Review of Relevant I have reviewed the following items prashanth (where applicable) has been applied. Labs Laboratory Tests Test 12/14/16 11:36 12/14/16 17:14 12/14/16 21:05 12/15/16 04:05 Glucose (Fingerstick) 143 mg/dL (70-99) 207 mg/dL (70-99) 193 mg/dL (70-99) White Blood Count 16.2 x10^3/uL (4.0-11.0) Red Blood Count 3.63 x10^6/uL (3.50-5.40) Hemoglobin 9.6 g/dL (12.0-15.5) Hematocrit 29.9 % (36.0-47.0) Mean Corpuscular Volume 82 fL (79-100) Mean Corpuscular Hemoglobin 27 pg (25-35) Mean Corpuscular Hemoglobin Concent 32 g/dL (31-37) Red Cell Distribution Width 14.4 % (11.5-14.5) Platelet Count 408 x10^3/uL (140-400) Neutrophils (%) (Auto) 72 % (31-73) Lymphocytes (%) (Auto) 20 % (24-48) Monocytes (%) (Auto) 7 % (0-9) Eosinophils (%) (Auto) 1 % (0-3) Basophils (%) (Auto) 0 % (0-3) Neutrophils # (Auto) 11.6 x10^3uL (1.8-7.7) Lymphocytes # (Auto) 3.2 x10^3/uL (1.0-4.8) Monocytes # (Auto) 1.1 x10^3/uL (0.0-1.1) Eosinophils # (Auto) 0.2 x10^3/uL (0.0-0.7) Basophils # (Auto) 0.1 x10^3/uL (0.0-0.2) Sodium Level 140 mmol/L (136-145) Potassium Level 4.3 mmol/L (3.5-5.1) Chloride Level 105 mmol/L (98-107) Carbon Dioxide Level 28 mmol/L (21-32) Anion Gap 7 (6-14) Blood Urea Nitrogen 20 mg/dL (7-20) Creatinine 1.0 mg/dL (0.6-1.0) Estimated GFR (Cockcroft-Gault) 56.0 Glucose Level 131 mg/dL (70-99) Hemoglobin A1c 6.0 % (4.8-5.6) Calcium Level 8.6 mg/dL (8.5-10.1) Test 12/15/16 07:13 12/15/16 11:48 12/15/16 17:03 12/15/16 20:23 Glucose (Fingerstick) 116 mg/dL (70-99) 172 mg/dL (70-99) 135 mg/dL (70-99) 180 mg/dL (70-99) Test 12/16/16 06:00 Sodium Level 140 mmol/L (136-145) Potassium Level 4.7 mmol/L (3.5-5.1) Chloride Level 105 mmol/L (98-107) Carbon Dioxide Level 29 mmol/L (21-32) Anion Gap 6 (6-14) Blood Urea Nitrogen 21 mg/dL (7-20) Creatinine 1.0 mg/dL (0.6-1.0) Estimated GFR (Cockcroft-Gault) 56.0 Glucose Level 101 mg/dL (70-99) Calcium Level 8.8 mg/dL (8.5-10.1) Laboratory Tests Test 12/15/16 11:48 12/15/16 17:03 12/15/16 20:23 12/16/16 06:00 Glucose (Fingerstick) 172 mg/dL (70-99) 135 mg/dL (70-99) 180 mg/dL (70-99) Sodium Level 140 mmol/L (136-145) Potassium Level 4.7 mmol/L (3.5-5.1) Chloride Level 105 mmol/L (98-107) Carbon Dioxide Level 29 mmol/L (21-32) Anion Gap 6 (6-14) Blood Urea Nitrogen 21 mg/dL (7-20) Creatinine 1.0 mg/dL (0.6-1.0) Estimated GFR (Cockcroft-Gault) 56.0 Glucose Level 101 mg/dL (70-99) Calcium Level 8.8 mg/dL (8.5-10.1) Microbiology 12/13/16 Blood Culture - Preliminary, Resulted NO GROWTH AFTER 2 DAYS 12/13/16 Urine Culture - Final, Complete 12/13/16 Urine Culture Result 1 (JES) - Final, Complete 12/13/16 Antimicrobic Susceptibility - Final, Complete Medications Current Medications Ondansetron HCl (Zofran) 4 mg 1X ONCE IV Last administered on 12/13/16 10:54; Start 12/13/16 at 10:45; Stop 12/13/16 at 10:46; Status DC Famotidine (Pepcid) 20 mg 1X ONCE IVP Last administered on 12/13/16 10:56; Start 12/13/16 at 10:45; Stop 12/13/16 at 10:46; Status DC Sodium Chloride 1,000 ml @ 1,000 mls/hr 1X ONCE IV Last administered on 10:54; Start 12/13/16 at 10:45; Stop 12/13/16 at 11:44; Status DC Hydralazine HCl (Apresoline) 10 mg 1X ONCE IVP Last administered on 12/13/16 12:10; Start 12/13/16 at 11:30; Stop 12/13/16 at 11:31; Status DC Metoprolol Tartrate (Lopressor) 5 mg 1X ONCE IVP Last administered on 12:11; Start 12/13/16 at 11:30; Stop 12/13/16 at 11:31; Status DC Iohexol (Omnipaque 300 Mg/ml) 60 ml 1X ONCE IV Last administered on 12/13/16 12:18; Start 12/13/16 at 12:00; Stop 12/13/16 at 12:01; Status DC Info (Do NOT chart on this entry -- for MONITORING) 1 each PRN DAILY PRN MC SEE COMMENTS; Start 12/13/16 at 12:00; Stop 12/15/16 at 11:59; Status DC Ondansetron HCl (Zofran) 4 mg PRN Q8HRS PRN IV NAUSEA/VOMITING; Start 12/13/16 at 13:30; Stop 12/14/16 at 13:29; Status DC Morphine Sulfate 4 mg PRN Q2HR PRN IV PAIN; Start 12/13/16 at 13:30; Stop at 13:29; Status DC Sodium Chloride 1,000 ml @ 125 mls/hr 1X ONCE IV Last administered on 14:36; Start 12/13/16 at 13:30; Stop 12/13/16 at 21:29; Status DC Levofloxacin/ Dextrose 100 ml @ 100 mls/hr Q24H IV Last administered on 14:37; Start 12/13/16 at 14:00; Stop 12/13/16 at 16:35; Status DC Famotidine (Pepcid) 20 mg BID IVP ; Start 12/13/16 at 21:00; Stop 12/13/16 at 21: 00; Status DC Prochlorperazine Edisylate (Compazine) 10 mg PRN Q8HRS PRN IV NAUSEA/VOMITING, 2ND CHOICE Last administered on 12/14/16 22:51; Start 12/13/16 at 13:30 Amlodipine Besylate (Norvasc) 10 mg DAILY PO Last administered on 12/15/16 08: 57; Start 12/14/16 at 09:00 Aspirin (Ecotrin) 81 mg DAILY PO Last administered on 12/15/16 08:59; Start 12/14/16 at 09:00 Atorvastatin Calcium (Lipitor) 20 mg HS PO Last administered on 12/15/16 20:24 ; Start 12/13/16 at 21:00 Citalopram Hydrobromide (CeleXA) 20 mg DAILY PO Last administered on 12/15/16 08:58; Start 12/14/16 at 09:00 Clopidogrel Bisulfate (Plavix) 75 mg DAILY PO Last administered on 12/15/16 08: 57; Start 12/14/16 at 09:00 Hydralazine HCl (Apresoline) 25 mg QID PO Last administered on 12/15/16 20:25; Start 12/13/16 at 17:00 Metoprolol Succinate (Toprol Xl) 100 mg DAILY PO Last administered on 12/15/16 08:59; Start 12/14/16 at 09:00 Pantoprazole Sodium (Protonix) 40 mg DAILYAC PO Last administered on 12/16/16 06:20; Start 12/14/16 at 07:30 Non-Formulary Medication 30 unit QHS SQ ; Start 12/13/16 at 21:00; Stop 12/13/16 at 21:00; Status DC Losartan Potassium (Cozaar) 100 mg DAILY PO Last administered on 12/15/16 08:58 ; Start 12/14/16 at 09:00 Multivitamins (Thera M Plus) 1 tab DAILY PO Last administered on 12/15/16 08:57 ; Start 12/14/16 at 09:00 Fish Oil (Fish Oil) 1,000 mg BID PO Last administered on 12/15/16 20:24; Start 12/13/16 at 21:00 Spironolactone (Aldactone) 50 mg DAILY PO Last administered on 12/15/16 08:56; Start 12/14/16 at 09:00 Enoxaparin Sodium (Lovenox 30mg Syringe) 40 mg Q24H SQ Last administered on 12/13 18:17; Start 12/13/16 at 17:00; Stop 12/14/16 at 13:45; Status DC Insulin Aspart (NovoLOG) 0-9 UNITS TIDWMEALS SQ Last administered on 12/15/16 14:07; Start 12/13/16 at 17:00 Dextrose (Dextrose 50%-Water Syringe) 12.5 gm PRN Q15MIN PRN IV SEE COMMENTS; Start 12/13/16 at 16:30 Ceftriaxone Sodium 1 gm/ Sodium Chloride 50 ml @ 100 mls/hr Q24H IV Last administered on 12/15/16 16:55; Start 12/13/16 at 17:00 Dextrose (Dextrose 50%-Water Syringe) 12.5 gm PRN Q15MIN PRN IV SEE COMMENTS; Start 12/13/16 at 16:30; Stop 12/13/16 at 16:37; Status DC Acetaminophen (Tylenol) 650 mg PRN Q6HRS PRN PO FEVER Last administered on 22:24; Start 12/13/16 at 16:30 Ondansetron HCl (Zofran) 4 mg PRN Q6HRS PRN IV NAUSEA/VOMITING, 1ST CHOICE Last administered on 12/14/16 18:27; Start 12/13/16 at 16:30 Morphine Sulfate 2 mg PRN Q2HR PRN IV PAIN; Start 12/13/16 at 16:30 Tramadol HCl (Ultram) 50 mg PRN Q6HRS PRN PO PAIN; Start 12/13/16 at 16:30 Hydralazine HCl (Apresoline) 10 mg PRN Q4HRS PRN IVP ELEVATED BP, SEE COMMENTS Last administered on 12/14/16 19:44; Start 12/13/16 at 16:30 Docusate Sodium (Colace) 100 mg PRN DAILY PRN PO CONSTIPATION; Start 12/13/16 at 16:30 Insulin Detemir (Levemir) 15 units QHS SQ Last administered on 12/13/16 20:53; Start 12/13/16 at 21:00; Stop 12/14/16 at 10:22; Status DC Famotidine (Pepcid) 20 mg QHS PO ; Start 12/13/16 at 21:00; Stop 12/13/16 at 21:00 ; Status DC Insulin Detemir (Levemir) 20 units QHS SQ Last administered on 12/15/16 20:32; Start 12/14/16 at 21:00 Enoxaparin Sodium (Lovenox 40mg Syringe) 40 mg BID SQ Last administered on 20:25; Start 12/14/16 at 21:00 Metoclopramide HCl (Reglan) 10 mg PRN Q6HRS PRN IV NAUSEA/VOMITING; Start at 11:00 Active Scripts Active Cyclobenzaprine Hcl 5 Mg Tablet 1 Tab PO TID PRN One pill by mouth up to 3 times daily as needed for muscle spasm and pain. Caution with use of this medication as it may cause drowsiness. Do not drive or operate machinery while using cyclobenzaprine. Reported Pantoprazole Sodium 40 Mg Tablet.dr 40 Mg PO DAILY Metoprolol Succinate ( Xl ) (Metoprolol Succinate) 100 Mg Tab.er.24h 100 Mg PO DAILY Hydralazine Hcl 25 Mg Tablet 25 Mg PO QID Lantus (Insulin Glargine,Hum.rec.anlog) 100 Unit/1 Ml Vial 30 Unit SQ QHS Aspir 81 (Aspirin) 81 Mg Tablet.dr 81 Mg PO DAILY Vitamin D (Cholecalciferol (Vitamin D3)) 2,000 Unit Capsule 1 Cap PO DAILY Fish Oil 1,000 Mg Softgel ([place]-3 Fatty Acids/Fish Oil) 1 Each Capsule 1 Each PO BID Tylenol (Acetaminophen) 325 Mg Tablet 650 Mg PO BID Atorvastatin Calcium 20 Mg Tablet 1 Tab PO HS Tylenol (Acetaminophen) 325 Mg Tablet 1-2 Tab PO PRN QID PRN Celexa (Citalopram Hydrobromide) 20 Mg Tablet 1 Tab PO DAILY Multivitamins (Multivitamin) 1 Each Tablet 1 Tab PO DAILY Clopidogrel (Clopidogrel Bisulfate) 75 Mg Tablet 1 Tab PO DAILY Amlodipine Besylate 10 Mg Tablet 10 Mg PO DAILY Losartan Potassium 100 Mg Tablet 100 Mg PO DAILY Spironolactone 50 Mg Tablet 1 Tab PO DAILY Vitals/I & O Vital Sign - Last 24 Hours 12/15/16 12/15/16 12/15/16 12/15/16 08:00 08:57 08:57 08:58 Pulse 60 60 60 B/P (MAP) 122/54 122/54 122/54 O2 Delivery Room Air 12/15/16 12/15/16 12/15/16 12/15/16 08:59 11:05 13:59 15:04 Temp 98.6 98.3 98.6 98.3 Pulse 60 63 63 61 Resp 20 19 B/P (MAP) 122/54 146/60 (88) 146/60 120/48 (72) Pulse Ox 96 96 O2 Delivery Room Air Room Air 12/15/16 12/15/16 12/15/16 12/15/16 16:54 19:00 20:00 20:25 Temp 99.1 99.1 Pulse 61 62 62 Resp 20 B/P (MAP) 120/48 147/65 (92) 147/65 Pulse Ox 97 O2 Delivery Room Air Room Air 12/15/16 12/16/16 23:00 03:12 Temp 98.4 98.4 Pulse 66 Resp 20 19 B/P (MAP) 116/52 (73) Pulse Ox 96 O2 Delivery Room Air Room Air Intake and Output 12/15/16 12/15/16 12/16/16 15:00 23:00 07:00 Intake Total 240 ml 640 ml 200 ml Balance 240 ml 640 ml 200 ml ARSH RUGGIERO MD Dec 16, 2016 07:30
[2016-12-16] MEDS: INSULIN ASPART 300 UNITS/3 ML INSULN.PEN SQ SCH ×2 (07:35→12:14)
[2016-12-16] MEDS: CLOPIDOGREL BISULFATE 75 MG TABLET PO SCH (08:43)
[2016-12-16] MEDS: ASPIRIN ENTERIC COATED 81 MG TABLET.DR. PO SCH (08:43)
[2016-12-16] MEDS: METOPROLOL SUCC 24HR ER 100 MG TAB.ER.24H. PO SCH (08:43)
[2016-12-16] MEDS: OMEGA-3 FATTY ACIDS/FISH OIL 1,000 MG CAPSULE. PO SCH (08:43)
[2016-12-16] MEDS: SPIRONOLACTONE 25 MG TABLET PO SCH (08:43)
[2016-12-16] MEDS: hydrALAZINE 25 MG TABLET PO SCH ×2 (08:44→12:11)
[2016-12-16] MEDS: LOSARTAN POTASSIUM 50 MG TABLET. PO SCH (08:44)
[2016-12-16] MEDS: CITALOPRAM 20 MG TABLET. PO SCH (08:44)
[2016-12-16] MEDS: MULTIVITAMIN with MINERAL TABLET. PO SCH (08:44)
[2016-12-16] MEDS: amLODIPine BESYLATE 10 MG TABLET PO SCH (08:45)
[2016-12-16] MEDS: ENOXAPARIN 40 MG/0.4 ML SYRINGE. SQ SCH (08:47)
--- NOTE | 2016-12-16 09:23 | PDOC2 ---
GI CONSULT Reason For Consult: Gastroparesis HPI: HPI: 61 y/o female admitted on 12/13/16 w/ n/v and abd discomfort. CT unrevealing for acute issue, then had GES which was abnormal w/ little/no emptying after 1 hour. Has IV Reglan ordered PRN but has not required this as she is feeling much better now w/o ongoing n/v or abd pain. Denies reflux/heartburn and dysphagia as well. No diarrhea or constipation. No hematochezia, melena, hematemesis. Previous EGD w/ Dr. Swanson in 12/2015 showed shana esophagitis (confirmed pathologically), reflux, normal stomach (path neg for H. pylori), and normal duodenum. Not on PPI, etc. at home. She also reports a normal colonoscopy w/ Dr. Swanson in 05/2016. Takes Plavix for h/o CVAs and Tylenol PRN, denies NSAID use. Does have IDDM, A1c 6. PMH: PMH: CVAs (says 5), DM, HTN, HLD, CKD FH: Family History: No pertinent hx (deneis GI cancers), CAD, CVA Social History: Smoke: No ALCOHOL: none Drugs: None ROS: GEN: Denies fevers, chills, sweats HEENT: Denies blurred vision, sore throat CV: Denies chest pain RESP: Denies shortness of air, cough GI: Per HPI : Denies hematuria, dysuria ENDO: Denies weight changes NEURO: Denies confusion, dizziness MSK: Denies weakness, joint pain/swelling SKIN: Denies jaundice, pruritus Vitals: Vitals: Vital Signs Date Time Temp Pulse Resp B/P (MAP) Pulse Ox O2 Delivery O2 Flow Rate FiO2 12/16/16 08:45 66 171/54 12/16/16 07:20 98.1 18 96 Room Air 98.1 Labs: Labs: Laboratory Tests Test 12/15/16 11:48 12/15/16 17:03 12/15/16 20:23 12/16/16 06:00 Glucose (Fingerstick) 172 mg/dL (70-99) 135 mg/dL (70-99) 180 mg/dL (70-99) White Blood Count 17.2 x10^3/uL (4.0-11.0) Red Blood Count 3.56 x10^6/uL (3.50-5.40) Hemoglobin 9.5 g/dL (12.0-15.5) Hematocrit 29.5 % (36.0-47.0) Mean Corpuscular Volume 83 fL (79-100) Mean Corpuscular Hemoglobin 27 pg (25-35) Mean Corpuscular Hemoglobin Concent 32 g/dL (31-37) Red Cell Distribution Width 14.2 % (11.5-14.5) Platelet Count 394 x10^3/uL (140-400) Neutrophils (%) (Auto) 64 % (31-73) Lymphocytes (%) (Auto) 25 % (24-48) Monocytes (%) (Auto) 8 % (0-9) Eosinophils (%) (Auto) 3 % (0-3) Basophils (%) (Auto) 1 % (0-3) Neutrophils # (Auto) 10.9 x10^3uL (1.8-7.7) Lymphocytes # (Auto) 4.4 x10^3/uL (1.0-4.8) Monocytes # (Auto) 1.3 x10^3/uL (0.0-1.1) Eosinophils # (Auto) 0.5 x10^3/uL (0.0-0.7) Basophils # (Auto) 0.1 x10^3/uL (0.0-0.2) Sodium Level 140 mmol/L (136-145) Potassium Level 4.7 mmol/L (3.5-5.1) Chloride Level 105 mmol/L (98-107) Carbon Dioxide Level 29 mmol/L (21-32) Anion Gap 6 (6-14) Blood Urea Nitrogen 21 mg/dL (7-20) Creatinine 1.0 mg/dL (0.6-1.0) Estimated GFR (Cockcroft-Gault) 56.0 Glucose Level 101 mg/dL (70-99) Calcium Level 8.8 mg/dL (8.5-10.1) Test 12/16/16 07:32 Glucose (Fingerstick) 115 mg/dL (70-99) Allergies: Coded Allergies: No Known Drug Allergies (Unverified , 01/03/16) Medications: Please see EMR. Imaging: Imaging: CXR IMPRESSION: Minimal left basilar linear atelectasis or scarring. CT A/P IMPRESSION: 1. Minimal colonic diverticulosis. 2. No acute abdominal or pelvic abnormality is detected. GES IMPRESSION: Severe gastroparesis. PE: GEN: NAD, overweight HEENT: Atraumatic, PERRL LUNGS: CTAB HEART: RRR ABD: NABS, S/ND/NT SKIN: No rashes, no jaundice NEURO/PSYCH: A & O 3 A/P: A/P: N/v, abd discomfort - resolved Gastroparesis IDDM Reflux -noted on EGD 12/2015 -asymptomatic, on PPI here CRC screen -reports normal colonoscopy in 05/2016 -- Symptoms improved w/o trial of Reglan. ?send home w/ suspension for PRN use Continue PPI. MEAGAN HANNA Dec 16, 2016 09:23
[2016-12-16] MEDS ORDERED: ONDA4TAB10 PO (11:21)
[2016-12-16] MEDS ORDERED: CEFP200T PO (11:21)
[2016-12-16 11:31] VITALS: BP 129/61
[2016-12-16 12:11] VITALS: BP 129/61
== END 2016-12-16 14:59 | disposition home or self-care (01) | DRG 74 ==
LOC: ER 10:24 → 6 SOUTH 12:52
PROVIDERS: ADMIT Internal Medicine; ATTEND Internal Medicine
DX: E11.43 Type 2 diabetes mellitus with diabetic autonomic (poly)neuropathy (principal); N10 Acute pyelonephritis; Z68.41 Body mass index [BMI] 40.0-44.9, adult; K31.84 Gastroparesis; B96.20 Unspecified Escherichia coli [E. coli] as the cause of diseases classified elsewhere; E11.22 Type 2 diabetes mellitus with diabetic chronic kidney disease; E66.01 Morbid (severe) obesity due to excess calories; E78.5 Hyperlipidemia, unspecified; I12.9 Hypertensive chronic kidney disease with stage 1 through stage 4 chronic kidney disease, or unspecified chronic kidney disease; I48.0 Paroxysmal atrial fibrillation; K21.9 Gastro-esophageal reflux disease without esophagitis; N18.3 Chronic kidney disease, stage 3 (moderate); R04.0 Epistaxis; R32 Unspecified urinary incontinence; Z79.4 Long term (current) use of insulin; Z82.3 Family history of stroke; Z82.49 Family history of ischemic heart disease and other diseases of the circulatory system; Z86.73 Personal history of transient ischemic attack (TIA), and cerebral infarction without residual deficits
CPT/HCPCS: 36415; 51702; 71010; 74177; 78264; 80048; 80053; 81001; 82553; 82962; 83036; 83605; 83690; 83735; 83880; 84145; 84484; 85007; 85027; 85610; 85730; 87040; 87086; 87186; 93005; 96361; 96374; 96375; A9541; J0360; J0696; J0780; J1650; J1815; J1956; J2405; J3490; J7030; Q9967; S0028; 99285-25

== ENCOUNTER → 2017-09-01 | Outpatient (CLI) | payer OTHER | END | disposition home or self-care (01) | LOC: ECHO 08:17 | DX: E78.5 Hyperlipidemia, unspecified (principal); I51.7 Cardiomegaly | CPT/HCPCS: 93306 ==

== ENCOUNTER → 2017-10-14 | Outpatient (CLI) | payer OTHER | END | disposition home or self-care (01) | LOC: PMGWOUND 09:53 | DX: E11.621 Type 2 diabetes mellitus with foot ulcer (principal); L97.511 Non-pressure chronic ulcer of other part of right foot limited to breakdown of skin; I10 Essential (primary) hypertension; G51.0 Bell's palsy; E78.5 Hyperlipidemia, unspecified; I48.91 Unspecified atrial fibrillation; F32.9 Major depressive disorder, single episode, unspecified; J45.909 Unspecified asthma, uncomplicated; Z86.73 Personal history of transient ischemic attack (TIA), and cerebral infarction without residual deficits | CPT/HCPCS: 99214 ==

== ENCOUNTER → 2018-03-03 | Outpatient (CLI) | payer MEDICARE, OTHER ==
[~2018-03-03] MED LIST changes: -ALBI50PE SQ; +ALBI50PE3 SQ; -AMLO10TA2 PO; +AMLO10TA6 PO; +CEFP200T PO; +HYDR-2868 PO; +INSU100V8 SQ; -LOSA100T6 PO; +LOSA100T7 PO; +METF500T16 PO; -METF500T4 PO; +METO-247 PO; +ONDA4TAB10 PO; +PANT40TA5 PO; -SPIR50TA2 PO; +SPIR50TA4 PO
--- NOTE | 2018-03-07 17:35 | KCIC ---
Bilateral digital screening mammograms: Reason for examination: Routine screening. No previous examinations available for comparison. Interpretation was made with the benefit of CAD. There is an electronic recorder device present medially in the left breast. The skin and nipples show no abnormalities. No abnormal lymph nodes are seen. The breast parenchyma is predominantly fatty. (Breast density: Category A.) There is a 1.5 cm circumscribed nodule present in the 5:00 C position of the left breast which may represent a fibroadenoma and contains no calcifications. There are no other dominant masses, suspicious calcifications or architectural distortions. A few benign calcifications are present. Impression: 1.5 cm circumscribed nodule at the 5:00 C position of the left breast which probably represents a fibroadenoma. Recommend further evaluation with ultrasound. BI-RADS Category 0: Incomplete. Needs additional imaging evaluation. "Our facility is accredited by the [employer] Mammography Program." This patient's information has been entered into a reminder system for the patient to be notified with the results of her examination and a target date for the next mammogram. Electronically signed by: Oma Jackson MD (03/07/2018 5:31 PM) [facility]
== END | disposition home or self-care (01) ==
LOC: KCIC US 14:09
PROVIDERS: ATTEND Family Medicine
DX: Z12.31 Encounter for screening mammogram for malignant neoplasm of breast (principal); N63.23 Unspecified lump in the left breast, lower outer quadrant; I12.9 Hypertensive chronic kidney disease with stage 1 through stage 4 chronic kidney disease, or unspecified chronic kidney disease; E11.22 Type 2 diabetes mellitus with diabetic chronic kidney disease; N18.3 Chronic kidney disease, stage 3 (moderate); E78.5 Hyperlipidemia, unspecified; I48.0 Paroxysmal atrial fibrillation; M19.90 Unspecified osteoarthritis, unspecified site; K21.9 Gastro-esophageal reflux disease without esophagitis; Z86.2 Personal history of diseases of the blood and blood-forming organs and certain disorders involving the immune mechanism; Z86.73 Personal history of transient ischemic attack (TIA), and cerebral infarction without residual deficits; Z83.3 Family history of diabetes mellitus; Z82.3 Family history of stroke
CPT/HCPCS: 77067

== ENCOUNTER → 2018-03-10 | Outpatient (CLI) | payer MEDICARE, OTHER ==
--- NOTE | 2018-03-10 12:12 | KCIC ---
Left breast ultrasound: Reason for examination: Nodular density on screening mammogram. Comparison is made to mammographic exam dated 03/03/2018. Ultrasound examination was performed in the area of mammographic concern at the 5:00 C position. At the 5:00 position 7 cm from the nipple and corresponding to the mammographic finding, there is an intramammary lymph node measuring 1.2 cm in greatest dimension which has a normal appearing cortex and echogenic hilum. No other cystic or solid lesions are seen. No abnormal appearing lymph nodes are seen in the axilla. IMPRESSION: Benign-appearing intramammary lymph node at the 5:00 position of the left breast. No suspicious abnormalities evident. Recommend routine mammographic follow-up. BI-RADS Category 2: Benign. "Our facility is accredited by the [employer] Mammography Program." This patient's information has been entered into a reminder system for the patient to be notified with the results of her examination and a target date for the next mammogram. Electronically signed by: Oma Jackson MD (03/10/2018 12:09 PM) [facility]
--- NOTE | 2018-03-10 18:20 | KCIC ---
Examination: PELVIS LIMITED OR FOLLOW UP History: Incontinence in a female patient. Comparison/Correlation: 12/13/2016 CT abdomen and pelvis with contrast Findings: Ultrasound imaging of the urinary bladder was performed. Urinary bladder is small in volume. Prevoid volume is 140 cc. There is no postvoid residual. Bilateral ureteral jets were identified. No suggestion of mass lesion. No calculi in the bladder. Impression: No post void residual volume. No suspicious finding delineated. Small urinary bladder volume at the time of imaging. Electronically signed by: Barry Brenner MD (03/10/2018 6:17 PM) [facility]
== END | disposition home or self-care (01) ==
LOC: KCIC US 11:15
PROVIDERS: ATTEND Family Medicine
DX: N63.23 Unspecified lump in the left breast, lower outer quadrant (principal); R32 Unspecified urinary incontinence; I12.9 Hypertensive chronic kidney disease with stage 1 through stage 4 chronic kidney disease, or unspecified chronic kidney disease; E11.22 Type 2 diabetes mellitus with diabetic chronic kidney disease; N18.3 Chronic kidney disease, stage 3 (moderate); I48.0 Paroxysmal atrial fibrillation; K21.9 Gastro-esophageal reflux disease without esophagitis; M19.90 Unspecified osteoarthritis, unspecified site; E78.5 Hyperlipidemia, unspecified; Z79.4 Long term (current) use of insulin; Z86.2 Personal history of diseases of the blood and blood-forming organs and certain disorders involving the immune mechanism; Z86.73 Personal history of transient ischemic attack (TIA), and cerebral infarction without residual deficits; Z82.49 Family history of ischemic heart disease and other diseases of the circulatory system; Z83.3 Family history of diabetes mellitus; Z82.3 Family history of stroke
CPT/HCPCS: 76641; 76857

== ENCOUNTER → 2018-03-22 | Outpatient (CLI) | payer MEDICARE, OTHER ==
--- NOTE | 2018-03-22 15:03 | KCIC ---
Pelvic ultrasound Clinical Indication: Postmenopausal bleeding for 3 weeks.. . TRANSABDOMINAL SCAN Poorly visualized structures. TRANSVAGINAL SCAN Uterus: * Size (in centimeters): 7.8 longitudinal by 3 x 4.2 * Appearance: No evidence of mass * Endometrium: 12 mm endometrial stripe thickness. Homogeneously hyperechoic. Right ovary: * Size: 17 cm long axis. * Blood flow: Intact * Appearance: No significant mass. Left ovary: * Not seen, probably due to body habitus Free fluid: None visualized IMPRESSION: 1. Abnormal endometrial thickening for a postmenopausal patient. Considerations include endometrial tumor, hemorrhage or endometritis. 2. Left ovary not visualized. Electronically signed by: Tonny Connolly MD (03/22/2018 3:00 PM) [facility]
== END | disposition home or self-care (01) ==
LOC: KCIC US 12:37
PROVIDERS: ATTEND Obstetrics & Gynecology
DX: C54.1 Malignant neoplasm of endometrium (principal); R93.89 Abnormal findings on diagnostic imaging of other specified body structures; N95.0 Postmenopausal bleeding; I48.91 Unspecified atrial fibrillation; I10 Essential (primary) hypertension; E11.9 Type 2 diabetes mellitus without complications
CPT/HCPCS: 76830; 76856

== ENCOUNTER → 2018-05-10 | Outpatient (CLI) | payer MEDICARE, OTHER ==
[~2018-05-10] MED LIST changes: +CALC500T30 PO; +CLON0.1T PO; +INSU100I32 SQ; -SENN-79 PO; +SENN-80 PO
--- NOTE | 2018-05-10 15:28 | KCIC ---
PA and lateral chest radiograph. History: Cough, shortness of breath. Preoperative. Comparison: December 13, 2016. Findings: Cardiomediastinal silhouette is within normal limits for size. Bilateral lung horta appear clear without evidence of infiltrate, effusion, or pneumothorax. Cardiac loop recorder projects over the cardiac silhouette on the frontal image. Mild linear atelectasis versus scarring involving the lingula Impression: 1. No acute cardiopulmonary process. Electronically signed by: Tonny Ratliff MD (05/10/2018 3:24 PM) [place] [id number]
== END | disposition home or self-care (01) ==
LOC: KCIC 13:21
PROVIDERS: ATTEND Family Medicine
DX: Z01.811 Encounter for preprocedural respiratory examination (principal); R05 Cough; R06.02 Shortness of breath
CPT/HCPCS: 71046

== ENCOUNTER 2018-05-11 09:13 | Day surgery (SDC) | payer MEDICARE, OTHER ==
[~2018-05-11 09:13] MED LIST changes: +HYDROmorphone 2 MG/ML VIAL IV PRN; +IV RINGERS,LACTATED 1000ML 1,000 ML IV SCH; +LIDOCAINE 1% PF 2 ML VIAL. ID PRN; +MORPHINE SULFATE 2 MG/ML VIAL. IV PRN; +ONDANSETRON PF 4 MG/2 ML VIAL. IV PRN; +PROCHLORPERAZINE 10 MG/2 ML VIAL. IV PRN; +fentaNYL PF VIAL 100 MCG/2 ML VIAL IV PRN
[2018-05-11] MEDS ORDERED: PROPOFOL 20 ML IV ONE (09:39)
[2018-05-11] MEDS ORDERED: fentaNYL PF VIAL 100 MCG/2 ML VIAL ONE (09:39)
[2018-05-11] MEDS ORDERED: LIDOCAINE 2% PF Vial for OR 5 ML VIAL. ONE (09:39)
[2018-05-11] MEDS ORDERED: IV RINGERS,LACTATED 1000ML 1,000 ML IV SCH (09:40)
[2018-05-11] MEDS ORDERED: DEXAMETHASONE SOD PHOS 20 MG/5 ML VIAL. ONE (09:40)
[2018-05-11] MEDS ORDERED: KETOROLAC 30 MG/ML INJ FOR OR. INJ ONE (09:40)
[2018-05-11] MEDS ORDERED: ONDANSETRON PF 4 MG/2 ML VIAL. ONE (09:40)
[2018-05-11] MEDS ORDERED: fentaNYL PF VIAL 100 MCG/2 ML VIAL IV PRN ×2 (09:45)
[2018-05-11] MEDS ORDERED: LIDOCAINE 1% PF 2 ML VIAL. ID PRN (09:45)
[2018-05-11] MEDS ORDERED: MIDAZOLAM HCL/PF 2 MG/2 ML VIAL. IV PRN (09:45)
[2018-05-11 10:21] LABS: BASO # 0.1 x10^3/uL (0.0-0.2); BASO % 1 % (0-3); EOS # 0.8 x10^3/uL (0.0-0.7); EOS % 7 % (0-3); HEMOGLOBIN 11.2 g/dL (12.0-15.5); LYMPH # 2.2 x10^3/uL (1.0-4.8); LYMPH % 21 % (24-48); MEAN CORPUSCULAR HEMOGLOBIN 28 pg (25-35); MEAN CORPUSCULAR HGB CONC 33 g/dL (31-37); MEAN CORPUSCULAR VOLUME 84 fL (79-100); MONO # 0.8 x10^3/uL (0.0-1.1); MONO % 7 % (0-9); NEUT # 6.9 x10^3uL (1.8-7.7); NEUT % 64 % (31-73); PLATELET COUNT 318 x10^3/uL (140-400); RED BLOOD COUNT 4.07 x10^6/uL (3.50-5.40); RED CELL DISTRIBUTION WIDTH 13.8 % (11.5-14.5); WHITE BLOOD COUNT 10.7 x10^3/uL (4.0-11.0)
[2018-05-11] MEDS ORDERED: VASOPRESSIN 20 UNIT/ML VIAL. ONE (10:44)
[2018-05-11] MEDS ORDERED: HEPARIN for SUB-Q USE 5,000 UNIT/ML VIAL. SQ ONE (10:45)
[2018-05-11] MEDS ORDERED: METOCLOPRAMIDE HCL 10 MG/2 ML VIAL. ONE (11:18)
--- NOTE | 2018-05-11 11:59 | PDOC ---
BRIEF OPERATIVE NOTE Date: May 11, 2018 Pre-Op Diagnosis PMB, endometrial thickening on sonogram Post-Op Diagnosis same plus endometrial polyp Procedure Performed h/s D&C with shawna clear fluid collection system Surgeon Dr. Juli Guerrero Anesthesiologist Dr. Jacobs Anesthesia Type: General Blood Loss <10cc IV Fluid see anesthesia notes Urine Output straight cath prior to procedure Specimens Obtained endometrial currettings (polyp) Findings one large and one smaller endometrial polyps Complications none Operative Note [id number] JULI GUERRERO MD May 11, 2018 11:59
[2018-05-11] MEDS ORDERED: HYDROcodone/APAP 5/325MG 1 TAB TABLET PO PRN (12:00)
[2018-05-11] MEDS ORDERED: diphenhydrAMINE HCL 25 MG CAPSULE PO PRN (12:00)
[2018-05-11] MEDS ORDERED: NALOXONE 0.4 MG/ML VIAL. IV PRN (12:00)
[2018-05-11] MEDS ORDERED: 0.9 % SODIUM CHLORIDE 10 ML DISP.SYRIN. IV PRN (12:00)
[2018-05-11] MEDS ORDERED: SIMETHICONE 80 MG TAB.CHEW PO PRN (12:00)
[2018-05-11] MEDS ORDERED: CALCIUM CARBONATE 500 MG TAB.CHEW PO PRN (12:00)
[2018-05-11] MEDS ORDERED: MAG HYDROX/ALUMINUM HYD/SIMETH 30 ML ORAL.SUSP PO PRN (12:00)
[2018-05-11] MEDS ORDERED: diphenhydrAMINE 50 MG/ML VIAL IV PRN (12:00)
--- NOTE | 2018-05-11 12:14 | OP ---
DATE OF SURGERY: 05/11/2018 PREOPERATIVE DIAGNOSES: Postmenopausal bleeding, endometrial thickening on sonogram. POSTOPERATIVE DIAGNOSES: Postmenopausal bleeding, endometrial thickening on sonogram with endometrial polyps. PROCEDURE: Hysteroscopy, D and C, which showed clear fluid collection system. SURGEON: Juli Guerrero M.D. EXECUTIVE RELATIONS SPECIALIST: OR personnel. ANESTHESIOLOGIST: Dr. Jacobs. ANESTHESIA: General. ESTIMATED BLOOD LOSS: Less than 10 mL. URINE OUTPUT: Was straight cathed prior to procedure. INTRAVENOUS FLUIDS: Please see Anesthesia notes. SPECIMEN: Endometrial curetting with the polyps. FINDINGS: One large and one smaller endometrial polyp. Uterine cavity that was otherwise atrophic consistent with a postmenopausal state. Both tubal ostia were clearly seen. Uterine cavity sounded to 8 cm. COMPLICATIONS: None. Fluid deficit was about 200. DESCRIPTION OF PROCEDURE: This patient was taken to the operating room where general anesthesia was placed. [facility] The patient's vagina was prepped and draped in the normal sterile fashion and a straight cath urine was done prior to starting. Upon my arrival, a timeout was performed. She did receive 5000 of heparin in preop holding area due to her history of ischemic strokes and she had been on Plavix, but had held it for just a few days. So at this point, after the timeout was completed, initially a long weighted speculum was placed in; however, she could feel that when Sten pushed it out on to the ground, so he did give her a little more anesthetic and the bivalve speculum was placed in the patient's vagina. A single-tooth tenaculum was used to grasp the anterior lip of the cervix. The Hegar dilators were used to dilate up to admit a 5/6 scope to a 15/16. At this point, she sounded to 8 cm. The scope had been primed. It was placed in with a large polyp initially seen behind it. Both tubal ostia were clear. The remainder of the cavity was atrophic consistent with a postmenopausal state. There was a smaller polyp behind it. So the shaving thin 5 blade was obtained. Once the polyps were out the uterine cavity was clear. There was no bleeding and the procedure was ended. The tenaculum was removed. The speculum was removed and the procedure was ended. The patient was awakened from anesthesia and brought to recovery room in stable condition. JULI GUERRERO MD DR: AMANUEL/prasanth JOB#: [id number] / [id number]
[2018-05-11 12:40] VITALS: BP 161/43
--- NOTE | 2018-05-13 09:43 | PATHOLOGY ---
[facility] Accession Number: [id number] . 01 Material submitted: . ENDOMETRIAL POLYP . 01 Clinical history: . Endometrial thickening . 02 Diagnosis: Endometrial curettings: - Endometrial polyp. [facility]/05/12/2018 . 02 Comment: Sections of the endometrial curettings reveal multiple segments of endometrial polyp. There is focal cystic glandular atrophy. There is no evidence of endometrial hyperplasia, atypia, or malignancy. (JPM:[facility] 05/12/2018) . 02 Electronically signed: . Brenden Roberts MD, Pathologist NPI- [id number] . 01 Gross description: . Received in formalin labeled "Al, Ban, polyp," are multiple segments of wilkinson soft tissue measuring 2.5 x 0.9 x 0.3 cm in aggregate dimensions. The specimen is filtered and entirely submitted in cassette A1. ([facility]; 05/11/2018) TOB/TOB . 02 Pathologist provided ICD-10: N84.0 . 02 CPT . 955534 Specimen Comment: A courtesy copy of this report has been sent to Specimen Comment: [phone], . Specimen Comment: Report sent to / DR MCLEAN Specimen Comment: A duplicate report has been generated due to demographic updates. Performed at: 01 [facility] [address], [place] [id number] MD Matthew Abbott MD Phone: [phone] Performed at: 02 [facility] [address], [place] [id number] MD Brenden Roberts MD Phone: [phone]
== END 2018-05-11 13:23 | disposition home or self-care (01) ==
LOC: SURG 09:13
PROVIDERS: ATTEND Obstetrics & Gynecology
DX: N84.0 Polyp of corpus uteri (principal); I10 Essential (primary) hypertension; E11.9 Type 2 diabetes mellitus without complications; E78.2 Mixed hyperlipidemia; E66.9 Obesity, unspecified; Z68.41 Body mass index [BMI] 40.0-44.9, adult; Z86.73 Personal history of transient ischemic attack (TIA), and cerebral infarction without residual deficits; Z79.84 Long term (current) use of oral hypoglycemic drugs; Z88.8 Allergy status to other drugs, medicaments and biological substances; Z79.899 Other long term (current) drug therapy; Z79.82 Long term (current) use of aspirin; Z83.3 Family history of diabetes mellitus; Z82.49 Family history of ischemic heart disease and other diseases of the circulatory system; Z98.890 Other specified postprocedural states
CPT/HCPCS: 36415; 58558; 85025; 88305; J1100; J1644; J2001; J2405; J2704; J2765; J3010; J7030; J1885; J3490

== ENCOUNTER → 2018-06-21 | Outpatient (CLI) | payer MEDICARE, OTHER ==
[~2018-06-21] MED LIST changes: -HYDROmorphone 2 MG/ML VIAL IV PRN; -IV RINGERS,LACTATED 1000ML 1,000 ML IV SCH; -LIDOCAINE 1% PF 2 ML VIAL. ID PRN; +LOSA100T14 PO; -LOSA100T7 PO; -MORPHINE SULFATE 2 MG/ML VIAL. IV PRN; -ONDANSETRON PF 4 MG/2 ML VIAL. IV PRN; -PROCHLORPERAZINE 10 MG/2 ML VIAL. IV PRN; +ZOLPIDEM 5 MG TABLET. PO ONE; -fentaNYL PF VIAL 100 MCG/2 ML VIAL IV PRN
--- NOTE | 2018-06-22 13:51 | SLEEP ---
DATE OF STUDY: 06/21/2018 ATTENDING PHYSICIAN: Dr. Nallely Sweeney. The patient is a 62-year-old who weighs 285 pounds with a BMI of 43. The patient's [place] score was 10. The patient underwent split night study at [facility]. During the night study, the patient spent 434 minutes in bed and slept for 379 minutes with a sleep efficiency of 87%. Sleep latency was 59 minutes with an absent REM sleep. Overall, sleep architecture showed increased stage 1 and stage 2 sleep, normal slow wave and absent REM sleep. During the initial diagnostic portion of the study, the patient slept for 157 minutes. During that time, there were 32 obstructive apneas, 9 mixed and 1 central apnea and 51 hypopneas. The patient's apnea hypopnea index was 36 per hour with a supine index of 36 per hour. REM sleep was not observed. Nocturnal oximetry study revealed an average oxygen saturation of 96% with the lowest of 85%. 8.5 minutes were spent in oxygen saturation less than 89%. PLMs were seen at an index of 95 per hour and 8 per hour caused EEG arousals. EKG monitoring revealed a mean heart rate of 63 beats per minute, no sustained arrhythmias observed. The patient met the criteria for CPAP initiation. It was started at 5 cm water and titrated up to 20 cm water. The patient continued to have respiratory events. The patient was then switched to BiPAP starting at 25/20 and titrated up to 28/23. At the final pressure, the patient slept for 29 minutes. The patient had near complete resolution of obstructive apneas as well as hypopneas. However, there were some treatment emergent central apneas causing an AHI of 14.7 per hour. There was some mask leak as well. Final pressure was 28/23. The patient had supine sleep, but no REM sleep. The patient slept for 29 minutes at the final pressure. The patient used a small size full facemask. This may not be the optimum BiPAP pressure. IMPRESSION: 1. Severe sleep apnea-hypopnea syndrome at an apnea hypopnea index of 36 per hour. 2. Nocturnal hypoxia secondary to obstructive sleep apnea, but resolved with BiPAP. 3. Severe periodic limb movements of sleep. RECOMMENDATIONS: 1. BiPAP at 28/23 did result in significant improvement in the patient's respiratory events. However, some treatment emergent central apneas were observed causing an AHI to 14.7 per hour. There mask leak as well. These central apneas may improve over time. I will recommend having a followup download information in 4-6 weeks. 2. Follow up clinically to assess compliance and to document clinical improvement as well. 3. Weight loss is strongly advised. 4. Avoid MANAGER STUDY depressants. 5. Caution regarding driving until symptoms of sleep apnea resolve with the use of BiPAP. 6. The patient should also be further evaluated for symptoms of restless legs during the day and if present, it can be treated with dopaminergic agonist agents. MURTAZA MOE MD DR: LANIE/prasanth JOB#: [id number] / [id number] NALLELY Crockett MD MTDD
== END | disposition home or self-care (01) ==
LOC: SLPLAB 19:04
PROVIDERS: ATTEND Family Medicine
DX: G47.33 Obstructive sleep apnea (adult) (pediatric) (principal); G47.34 Idiopathic sleep related nonobstructive alveolar hypoventilation
CPT/HCPCS: 95810

== ENCOUNTER → 2018-06-30 | Outpatient (CLI) | payer MEDICARE, OTHER ==
[~2018-06-30] MED LIST changes: -AMLO10TA6 PO; +AMLO10TA8 PO; +BARIUM SULFATE 40% (APPLE) 148 GM PWD. PO ONE; -PANT40TA3 PO; -PANT40TA5 PO; +PANT40TA77 PO; -ZOLPIDEM 5 MG TABLET. PO ONE
--- NOTE | 2018-06-30 14:18 | RAD ---
Video dysphasia study, 06/30/2018: History: Wet voice, previous stroke The swallowing mechanism was examined fluoroscopically in the lateral projection while the patient ingested a variety of food materials mixed with barium. 1.8 minutes of fluoroscopy time was utilized. One video fluoroscopic lobe was recorded by a member of the speech Department. The patient demonstrated good oral control of the barium materials. There was prompt initiation of pharyngeal peristalsis. There was normal passage of the majority of the barium bolus through the cervical esophagus. There was one episode of transient laryngeal penetration with the thin liquids. When utilizing a straw with the thin liquids there was one episode of deep laryngeal penetration. No danny aspiration was observed with the thin or thicker materials. The patient ingested the barium coated solids without difficulty. There was very little vallecular or piriform sinus residue. IMPRESSION: No evidence of aspiration.
== END | disposition home or self-care (01) ==
LOC: RAD 13:35
PROVIDERS: ATTEND Family Medicine
DX: R13.10 Dysphagia, unspecified (principal); Z86.73 Personal history of transient ischemic attack (TIA), and cerebral infarction without residual deficits
CPT/HCPCS: 74230; 92611

== ENCOUNTER → 2018-09-21 | Outpatient (CLI) | payer MEDICARE, OTHER ==
[~2018-09-21] MED LIST changes: -BARIUM SULFATE 40% (APPLE) 148 GM PWD. PO ONE; +PANT40TA3 PO; +PANT40TA5 PO; -PANT40TA77 PO
--- NOTE | 2018-09-21 16:51 | KCIC ---
Examination: Ultrasound pelvis HISTORY: History of postmenopausal bleeding COMPARISON: None available FINDINGS: The uterus measures 7.2 x 4.4 x 2.9 cm. Endometrium measures 1.3 mm in thickness. The right and left ovaries could not be identified. Nabothian cyst identified in the cervix. IMPRESSION: 1. Thin appearing endometrium. 2. The right and left ovaries could not be identified. Electronically signed by: Pako Russo MD (09/21/2018 4:48 PM) [facility]
== END | disposition home or self-care (01) ==
LOC: KCIC US 15:32
PROVIDERS: ATTEND Obstetrics & Gynecology
DX: N88.8 Other specified noninflammatory disorders of cervix uteri (principal); N95.0 Postmenopausal bleeding
CPT/HCPCS: 76830; 76856

== ENCOUNTER → 2018-10-11 | Outpatient (CLI) | payer MEDICARE, OTHER ==
--- NOTE | 2018-10-11 11:35 | CARD ---
MR#: [id number] Date of Study: 10/11/2018 Ordering Physician: LINDA BROWNLEE, Referring Physician: LINDA BROWNLEE Tech: Paula Greene RDCS APPROVED REPORT EXAM: Two-dimensional and M-mode echocardiogram with Doppler and color Doppler. Other Information Quality : Fair INDICATION CVA/TIA 2D DIMENSIONS RVDd2.0 (2.9-3.5cm)Left Atrium(2D)3.9 (1.6-4.0cm) IVSd1.0 (0.7-1.1cm)Aortic Root(2D)2.9 (2.0-3.7cm) LVDd5.5 (3.9-5.9cm)LVOT Diameter2.1 (1.8-2.4cm) PWd1.1 (0.7-1.1cm)LVDs2.7 (2.5-4.0cm) FS (%) 30.0 %SV123.4 ml LVEF(%)60.0 (>50%) Aortic Valve AoV Peak Salty.134.6cm/sAoV VTI28.9cm AO Peak GR.7.2mmHgLVOT Peak Salty.107.0cm/s AO Mean GR.4mmHgAVA (VMAX)2.77cm2 KAREN (VTI)3.10cm2 Mitral Valve MV E Sexvsfhf124.7cm/sMV DECEL [id number] MV A Mmdizdxj03.6cm/sE/A Ratio1.1 Pulmonary Vein S1 Jvxlllrd35.9cm/sD2 Jyqfsmai68.2cm/s LEFT VENTRICLE The left ventricle is normal size. There is normal left ventricular wall thickness. The left ventricu lar systolic function is normal. The Ejection Fraction is 55-60%. There is normal LV segmental wall m otion. RIGHT VENTRICLE The right ventricle is normal size. The right ventricular systolic function is normal. ATRIA The left atrium size is normal. The right atrium size is normal. The interatrial septum is intact wit h no evidence for an atrial septal defect or patent foramen ovale as noted on 2-D or Doppler imaging. AORTIC VALVE The aortic valve is calcified but opens well. Doppler and Color Flow revealed no significant aortic r egurgitation. There is no significant aortic valvular stenosis. MITRAL VALVE The mitral valve is calcified but opens well. There is no evidence of mitral valve prolapse. There is no mitral valve stenosis. Doppler and Color Flow revealed no mitral valve regurgitation noted. TRICUSPID VALVE The tricuspid valve is normal in structure and function. Doppler and Color Flow revealed trace tricus pid valve regurgitation. There is no tricuspid valve stenosis. PULMONIC VALVE The pulmonic valve is not well visualized. Doppler and Color Flow revealed trace pulmonic valvular re gurgitation. There is no pulmonic valvular stenosis. GREAT VESSELS The aortic root is normal in size. The ascending aorta is normal in size. The IVC is normal in size a nd collapses >50% with inspiration. PERICARDIAL EFFUSION There is no evidence of significant pericardial effusion. Critical Notification Critical Value: No <Conclusion> The left ventricular systolic function is normal. The Ejection Fraction is 55-60%. There is normal LV segmental wall motion. Doppler and Color Flow revealed trace tricuspid valve regurgitation. There is no evidence of significant pericardial effusion. Signed by : Linda Brownlee, Electronically Approved : 10/11/2018 10:54:29
== END | disposition home or self-care (01) ==
LOC: ECHO 08:58
PROVIDERS: ATTEND Internal Medicine Cardiovascular Disease
DX: I08.0 Rheumatic disorders of both mitral and aortic valves (principal); I63.9 Cerebral infarction, unspecified
CPT/HCPCS: 93306

== ENCOUNTER 2019-01-24 08:56 | Outpatient (CLI) | payer MEDICARE, OTHER ==
[~2019-01-24] VITALS: Ht 172.7 cm; Wt 129.3 kg
[2019-01-24] VITALS (10 sets, daily range): BP systolic 122–154; BP diastolic 53–86
[~2019-01-24 08:56] MED LIST changes: -PANT40TA3 PO; -PANT40TA5 PO; +PANT40TA77 PO
[2019-01-24] MEDS ORDERED: SPIR25TA5 PO (09:20)
[2019-01-24] MEDS ORDERED: PANT40TA77 PO (09:20)
[2019-01-24] MEDS ORDERED: OXYB5TAB7 PO (09:20)
[2019-01-24] MEDS ORDERED: ASCO500C PO (09:20)
[2019-01-24] MEDS ORDERED: FOLI1TAB16 PO (09:20)
[2019-01-24] MEDS ORDERED: POTA20TA82 PO (09:20)
[2019-01-24] MEDS ORDERED: LIDOCAINE 1% Multi-Dose 20 ML VIAL. ONE (09:30)
[2019-01-24] MEDS ORDERED: LIDOCAINE 1% Multi-Dose 20 ML VIAL. INJ ONE (12:00)
--- NOTE | 2019-01-24 12:30 | CARD ---
MR#: [id number] Date of Study: 01/24/2019 Ordering Physician: LINDA OROZCO, Referring Physician: LINDA OROZCO, Tech: APPROVED REPORT EXAM Successful explantation of Biotronik Biomonitor loop recorder fluoro time: 0.1 minutes Dose: 0.62 Gycm2 INDICATIONS CVA s/p Loop recorder implantation presenting with battery depletion EXPLANTED DEVICES An informed consent was obtained from patient. She was brought to cardiac labor relations teacher and left chest an d shoulder prepped and draped in usual fashion. 10 cc of 2% lidocaine was infiltrated into skin and subcutaneous tissues for local anasthesia. An incision was made over previous scar and using blunt d issection, the pocket was opened and device removed from pocket. The incision was closed in one laye r. Hemostasis was secured. There were no immediate complications. Signed by : Linda Orozco, Electronically Approved : 01/24/2019 12:30:21
--- NOTE | 2019-01-24 14:32 | NUR ---
discharge notes; Pt was discharged home. A O X4. Pt ate lunch w/o problem. Discharge instructions (med, diet, activity, and incision care ) was reviewed w/ pt. Pt and spouse verbalized understanding. No IV present. Belongings were returned to pt. Pt was taken down to lobby via W/C by this nurse.
== END 2019-01-24 14:10 | disposition home or self-care (01) ==
LOC: CCL 08:56
PROVIDERS: ATTEND Internal Medicine Cardiovascular Disease
DX: Z45.09 Encounter for adjustment and management of other cardiac device (principal); I63.9 Cerebral infarction, unspecified; I10 Essential (primary) hypertension; E11.9 Type 2 diabetes mellitus without complications; E78.5 Hyperlipidemia, unspecified; Z79.84 Long term (current) use of oral hypoglycemic drugs
CPT/HCPCS: 33284; 33286

== ENCOUNTER 2019-06-08 14:00 | Emergency (ER) | payer MEDICARE ==
[~2019-06-08] VITALS: Ht 172.7 cm; Wt 117.9 kg
[~2019-06-08 14:00] MED LIST changes: +ASCO500C PO; +FOLI1TAB16 PO; +OXYB5TAB10 PO; +POTA20TA4 PO; +SIMV40TA18 PO; -SIMV40TA3 PO; +SPIR25TA5 PO
[2019-06-08 14:44] VITALS: BP 174/77
[2019-06-08] MEDS: IPRATRPIUM/ALBUTEROL 0.5/2.5MG 3 ML NEBU. NEB ONE (15:21)
[2019-06-08] MEDS: predniSONE 20 MG TABLET PO ONE (15:27)
[2019-06-08] MEDS: BENZONATATE 100 MG CAPSULE. PO ONE (15:27)
--- NOTE | 2019-06-08 15:31 | RAD ---
EXAM: Chest, 2 views. HISTORY: Cough. COMPARISON: 05/10/2018 FINDINGS: 2 views of the chest are obtained. There is lingular atelectasis, infiltrate or scarring. The heart is normal in size. There is no pleural effusion or pneumothorax. IMPRESSION: Lingular atelectasis, infiltrate or scarring. Electronically signed by: Kristen Morales MD (06/08/2019 3:28 PM) [facility]
[2019-06-08 15:46] LABS: INFLUENZA A PATIENT NEGATIVE (NEGATIVE); INFLUENZA B PATIENT NEGATIVE (NEGATIVE)
[2019-06-08] MEDS ORDERED: ALBU2.5V8 IH (16:00)
[2019-06-08] MEDS ORDERED: BENZ100C PO (16:00)
[2019-06-08] MEDS ORDERED: DOXY100T PO (16:00)
--- NOTE | 2019-06-08 16:00 | PHYS DOC ---
Past Medical History Past Medical History: Arthritis, CVA Additional Past Medical Histor: BONDS'S PALSY Past Surgical History: Other Additional Past Surgical Histo: ORIF LEFT ANKLE Alcohol Use: Occasionally Drug Use: None Adult General Chief Complaint Chief Complaint: COUGH HPI HPI Patient is a 63 year old female with history of CVA, arthritis, who presents to the ED today complaining of a productive cough 1 month. Patient denies any fever. She reports symptoms have gotten worse in the last 1 week. Review of Systems Review of Systems Constitutional: Denies fever or chills [] Eyes: Denies change in visual acuity, redness, or eye pain [] HENT: Denies nasal congestion or sore throat [] Respiratory: Reports cough, denies shortness of breath [] Cardiovascular: No additional information not addressed in HPI [] GI: Denies abdominal pain, nausea, vomiting, bloody stools or diarrhea [] : Denies dysuria or hematuria [] Musculoskeletal: Denies back pain or joint pain [] Integument: Denies rash or skin lesions [] Neurologic: Denies headache, focal weakness or sensory changes [] All other systems were reviewed and found to be within normal limits, except as documented in this note. Current Medications Current Medications Current Medications Medications (Trade) Dose Ordered Sig/Mendy Start Time Stop Time Status Last Admin Dose Admin Albuterol/ Ipratropium (Duoneb) 3 ml 1X ONCE 06/08/19 15:30 06/08/19 15:31 DC 06/08/19 15:21 3 ML Benzonatate (Tessalon Perle) 100 mg 1X ONCE 06/08/19 15:30 06/08/19 15:31 DC 06/08/19 15:27 100 MG Prednisone (Prednisone) 60 mg 1X ONCE 06/08/19 15:30 06/08/19 15:31 DC 06/08/19 15:27 60 MG Allergies Allergies Allergies Coded Allergies Type Severity Reaction Last Updated Verified No Known Drug Allergies 05/11/18 No Physical Exam Physical Exam Constitutional: Well developed, well nourished, no acute distress, non-toxic appearance. [] HENT: Normocephalic, atraumatic, bilateral external ears normal, oropharynx moist, no oral exudates, nose normal. [] Eyes: PERRLA, EOMI, conjunctiva normal, no discharge. [] Neck: Normal range of motion, no tenderness, supple, no stridor. [] Cardiovascular:Heart rate regular rhythm, no murmur [] Lungs & Thorax: Patient is actively coughing in the ED, diminished posterior lung bases. Abdomen: Bowel sounds normal, soft, no tenderness, no masses, no pulsatile masses. [] Skin: Warm, dry, no erythema, no rash. [] Back: No tenderness, no CVA tenderness. [] Extremities: No tenderness, no cyanosis, no clubbing, ROM intact, no edema. [] Neurologic: Alert and oriented X 3, normal motor function, normal sensory function, no focal deficits noted. [] Psychologic: Affect normal, judgement normal, mood normal. [] Current Patient Data Vital Signs Vital Signs Date Time Temp Pulse Resp B/P (MAP) Pulse Ox O2 Delivery O2 Flow Rate FiO2 06/08/19 15:23 Room Air 06/08/19 14:44 98.5 69 24 174/77 (109) 95 98.5 Lab Values Laboratory Tests Test 06/08/19 14:40 Influenza Type A Antigen Negative (NEGATIVE) Influenza Type B Antigen Negative (NEGATIVE) EKG EKG [] Radiology/Procedures Radiology/Procedures []PROCEDURE: CHEST PA & LATERAL EXAM: Chest, 2 views. HISTORY: Cough. COMPARISON: 05/10/2018 FINDINGS: 2 views of the chest are obtained. There is lingular atelectasis, infiltrate or scarring. The heart is normal in size. There is no pleural effusion or pneumothorax. IMPRESSION: Lingular atelectasis, infiltrate or scarring. Electronically signed by: Kristen Mnoge MD (06/08/2019 3:28 PM) [place] [id number] DICTATED and SIGNED BY: KRISTEN MONGE MD DATE: 06/08/19 1528 Course & Med Decision Making Course & Med Decision Making Pertinent Labs and Imaging studies reviewed. (See chart for details) This is a 63-year-old female patient presented to the ED today with complaints of cough that began a month ago. Chest x-ray noted for possible pneumonia. Negative influenza A or B. Discharged on doxycycline albuterol inhaler and Tessalon Perles. Follow-up with PCP in 1-2 weeks. Dragon Disclaimer Dragon Disclaimer This electronic medical record was generated, in whole or in part, using a voice recognition dictation system. Departure Departure Impression: Primary Impression: Left lower lobe pneumonia Disposition: HOME, SELF-CARE Condition: STABLE Referrals: ALEX IVEY APRN (PCP) follow up with your doctor in 1-2 weeks Patient Instructions: Pneumonia, Adult, [id number] Additional Instructions: You were evaluated in the emergency room and noted to have possible pneumonia. We put you on antibiotics, take them as prescribed until completed. Follow-up with your doctor in 1-2 weeks. Scripts Benzonatate (TESSALON PERLE) 100 Mg Capsule 1 CAP PO TID, #30 CAP Prov: ANTONI MEIER APRN 06/08/19 Albuterol Sulfate (PROAIR HFA INHALER) 8.5 Gm Hfa.aer.ad 2 PUFF IH PRN Q4-6HRS PRN for wheezing for 21 Days, #1 INHALER 0 Refills Prov: ANTONI MEIER APRN 06/08/19 Doxycycline Hyclate (DOXYCYCLINE HYCLATE) 100 Mg Tablet 1 TAB PO BID, #14 TAB Prov: ANTONI MEIER APRN 06/08/19 Problem Qualifiers Primary Impression: Left lower lobe pneumonia Pneumonia type: due to unspecified organism Qualified Codes: J18.9 - Pneumonia, unspecified organism ANTONI MEIER APRN Jun 08, 2019 16:00
== END 2019-06-08 16:00 | disposition home or self-care (01) ==
LOC: ER 14:00
DX: J18.9 Pneumonia, unspecified organism (principal); G51.0 Bell's palsy; Z86.73 Personal history of transient ischemic attack (TIA), and cerebral infarction without residual deficits
CPT/HCPCS: 71046; 87804; 94640; 99285; J7512; J7620

== ENCOUNTER → 2019-06-22 | Outpatient (CLI) | payer MEDICARE ==
[2019-06-08 14:44] VITALS: BP 174/77
[~2019-06-22] MED LIST changes: +ALBU2.5V8 IH; +BENZ100C PO; +DOXY100T PO
--- NOTE | 2019-06-22 14:33 | KCIC ---
EXAM: Chest, 2 views. HISTORY: Pneumonia. Productive cough. COMPARISON: 06/08/2019 and 05/10/2018 FINDINGS: 2 views of the chest are obtained There is stable linear opacity, likely due to scarring given the absence of interval change control manager a greater than 1 year interval. There is no convincing infiltrate, pleural effusion or pneumothorax. The heart is normal in size. IMPRESSION: No acute pulmonary finding. Electronically signed by: Kristen Morales MD (06/22/2019 2:30 PM) [place] [id number]
== END | disposition home or self-care (01) ==
LOC: KCIC 12:59
PROVIDERS: ATTEND Nurse Practitioner Family
DX: J18.9 Pneumonia, unspecified organism (principal)
CPT/HCPCS: 71046

== ENCOUNTER → 2019-09-13 | Outpatient (CLI) | payer MEDICARE ==
[~2019-09-13] MED LIST changes: +ZOLPIDEM 5 MG TABLET. PO ONE
--- NOTE | 2019-09-14 20:21 | SLEEP ---
DATE OF STUDY: 09/13/2019 SLEEP STUDY REFERRING PHYSICIAN: Antonieta Frank MD The patient is a 64-year-old, who weighs 265 pounds with a BMI of 40. The patient's [place] score was 10. The patient has history of sleep apnea and has been on BiPAP. The patient needs to be requalified. As a result, another split night study was requested. During the night study, the patient spent 408 minutes in bed and slept for 290 minutes with a low sleep efficiency of 71%. Sleep latency was 112 minutes with absent REM sleep. Sleep architecture showed increased stage 1 and stage 2 sleep, increased slow wave and absent REM sleep. During the initial diagnostic portion of the study, the patient slept for 141 minutes. During that time, there were 27 obstructive apneas, 22 mixed apneas, no central apneas and 29 hypopneas. The patient's AHI was 33 per hour, supine AHI 33 per hour. REM sleep was not observed. PLMS were seen at index of 60 per hour and 5 per hour caused EEG arousals. Nocturnal oximetry study revealed a mean oxygen saturation 94% with the lowest of 86%. A 17% of time oxygen saturation remained between 80% and 89%. EKG monitoring revealed an average heart rate of 61 beats per minute, no sustained arrhythmias observed. The patient met the criteria for CPAP initiation. It was started at 7 cm water and titrated up to 15 cm water. However, due to intolerance to CPAP at higher pressure, the patient was switched to BiPAP at 22/15. At that pressure, the patient slept for 74 minutes. The patient's AHI was reduced to 4 per hour and oxygen saturation remained above 90%. The patient used small size full face mask. IMPRESSION: 1. Severe obstructive sleep apnea at an AHI of 33 per hour. 2. Nocturnal hypoxia secondary to obstructive sleep apnea. 3. Severe periodic limb movements of sleep. RECOMMENDATIONS: 1. BiPAP at a pressure of 22/15 should be used on a nightly basis. The patient did not require supplemental oxygen. 2. Follow up in 4-6 weeks to assess compliance with BiPAP and to document clinical improvement. 3. Weight loss is strongly advised. 4. Avoid STEREOPTIC PROJECTION TOPOGRAPHER depressants. 5. Cautioned regarding driving until symptoms of sleep apnea resolve with the use of BiPAP. 6. The patient should also be further evaluated for symptoms of restless legs during the day. MURTAZA MOE MD DR: LANIE/prasanth JOB#: [id number] / [id number] ANTONIETA Arenas APRN
== END ==
LOC: SLPLAB 19:00
PROVIDERS: ATTEND Nurse Practitioner Family
DX: G47.33 Obstructive sleep apnea (adult) (pediatric) (principal); R09.02 Hypoxemia
CPT/HCPCS: 95810

== ENCOUNTER 2019-11-16 09:06 | Emergency (ER) | payer MEDICARE, OTHER ==
[~2019-11-16] VITALS: Ht 167.6 cm; Wt 120.5 kg
[~2019-11-16 09:06] MED LIST changes: -ASCO500T2 PO; +ASCO500T4 PO; +MULT-445 PO; -MULT1TAB52 PO; +SENN-182 PO; -SENN-80 PO; -ZOLPIDEM 5 MG TABLET. PO ONE
[2019-11-16 09:27] VITALS: BP 143/65
[2019-11-16] MEDS ORDERED: OXYM30SP25 NS (09:38)
--- NOTE | 2019-11-16 09:39 | PHYS DOC ---
Past Medical History Past Medical History: Arthritis, CVA Additional Past Medical Histor: BONDS'S PALSY Past Surgical History: Other Additional Past Surgical Histo: ORIF LEFT ANKLE Smoking Status: Never Smoker Alcohol Use: Occasionally Drug Use: None General Adult EDM: Chief Complaint: NOSEBLEED HPI: HPI: Patient is a 64-year-old female with obstructive sleep apnea who uses CPAP at night presents today with a bloody nose. She states is been ongoing since this morning and she is had difficulty controlling it. She does admit that its not actively bleeding now. She states the CPAP machine she uses is new does have humidified oxygen. There is no direct trauma to the nose. She states this is the second nosebleed she has had this week. [] Review of Systems: Review of Systems: Constitutional: Denies fever or chills. [] Eyes: Denies change in visual acuity. [] HENT: Per HPI] Respiratory: Denies cough or shortness of breath. [] Cardiovascular: Denies chest pain or edema. [] GI: Denies abdominal pain, nausea, vomiting, bloody stools or diarrhea. [] : Denies dysuria. [] Musculoskeletal: Denies back pain or joint pain. [] Integument: Denies rash. [] Neurologic: Denies headache, focal weakness or sensory changes. [] Endocrine: Denies polyuria or polydipsia. [] Lymphatic: Denies swollen glands. [] Psychiatric: Denies depression or anxiety. [] Heart Score: Risk Factors: Risk Factors: DM, Current or recent (<one month) smoker, HTN, HLP, family history of CAD, obesity. Risk Scores: Score 0 - 3: 2.5% MACE over next 6 weeks - Discharge Home Score 4 - 6: 20.3% MACE over next 6 weeks - Admit for Clinical Observation Score 7 - 10: 72.7% MACE over next 6 weeks - Early Invasive Strategies Allergies: Allergies: Allergies Coded Allergies Type Severity Reaction Last Updated Verified No Known Drug Allergies 05/11/18 No Physical Exam: PE: Constitutional: Well developed, well nourished, no acute distress, non-toxic appearance. [] HENT: Normocephalic, atraumatic, bilateral external ears normal, oropharynx moist, no oral exudates, there is some oozing at the anterior nasal septum. [] Eyes: PERRLA, EOMI, conjunctiva normal, no discharge. [] Neck: Normal range of motion, no tenderness, supple, no stridor. [] Cardiovascular:Heart rate regular rhythm, no murmur [] Lungs & Thorax: Bilateral breath sounds clear to auscultation [] Abdomen: Bowel sounds normal, soft, no tenderness, no masses, no pulsatile masses. [] Skin: Warm, dry, no erythema, no rash. [] Back: No tenderness, no CVA tenderness. [] Extremities: No tenderness, no cyanosis, no clubbing, ROM intact, no edema. [] Neurologic: Alert and oriented X 3, normal motor function, normal sensory function, no focal deficits noted. [] Psychologic: Affect normal, judgement normal, mood normal. [] EKG: EKG: [] Radiology/Procedures: Radiology/Procedures: [] Course & Med Decision Making: Course & Med Decision Making Pertinent Labs and Imaging studies reviewed. (See chart for details) [ED course: 2 sprays of Afrin into the right nare no active bleeding have instructed the patient to use a coolmist humidifier throughout the day and use Woods mist nasal spray to keep her nose moist.] Dragon Disclaimer: Clean Plates Disclaimer: This electronic medical record was generated, in whole or in part, using a voice recognition dictation system. Departure Departure Impression: Primary Impression: Acute anterior epistaxis Disposition: 01 HOME, SELF-CARE Condition: IMPROVED Referrals: ALEX IVEY APRN (PCP) Patient Instructions: Nosebleed Additional Instructions: Return to the emergency department any new or concerning symptoms Scripts Oxymetazoline Hcl (AFRIN) 30 Ml [place] 30 ML NS BID for Nosebleed for 3 Days, #2 SPRAY Prov: MELODY MENDES DO 11/16/19 Justicifation of Admission Dx: Justifications for Admission: Justification of Admission Dx: No MELODY MENDES DO Nov 16, 2019 09:39
[2019-11-16] MEDS ORDERED: OXYMETAZOLINE 0.05% NASAL SPRAY 30ML BOTTLE. NS ONE (09:45)
== END 2019-11-16 10:03 | disposition home or self-care (01) ==
LOC: ER 09:06
DX: R04.0 Epistaxis (principal); M19.90 Unspecified osteoarthritis, unspecified site; G47.33 Obstructive sleep apnea (adult) (pediatric); I97.821 Postprocedural cerebrovascular infarction following other surgery; Z98.890 Other specified postprocedural states
CPT/HCPCS: 99284

== ENCOUNTER → 2019-12-22 | Outpatient (CLI) | payer MEDICARE ==
[~2019-12-22] MED LIST changes: +OXYM30SP25 NS
--- NOTE | 2019-12-22 18:31 | KCIC ---
Bilateral digital screening mammograms: Reason for examination: Routine screening. Comparison is made to previous study dated 03/03/2018. Interpretation was made with the benefit of CAD. The skin and nipples show no abnormalities. No abnormal lymph nodes are seen. The breast parenchyma is predominantly fatty. (Breast density: Category A.) There continues to be a small nodule consistent with an intramammary lymph node at the 5:00 C position of the left breast which is stable. There are no new dominant masses, suspicious calcifications or architectural distortions. A few benign calcifications are again seen. Impression: No evidence of malignancy. Recommend routine screening. BI-RADS Category 2: Benign. "Our facility is accredited by the [employer] Mammography Program." This patient's information has been entered into a reminder system for the patient to be notified with the results of her examination and a target date for the next mammogram. Electronically signed by: Oma Jackson MD (12/22/2019 6:28 PM) [id number]
== END | disposition home or self-care (01) ==
LOC: KCIC MAMMO 12:49
PROVIDERS: ATTEND Nurse Practitioner Family
DX: Z12.31 Encounter for screening mammogram for malignant neoplasm of breast (principal); N64.89 Other specified disorders of breast
CPT/HCPCS: 77067

== ENCOUNTER → 2020-02-01 | Outpatient (CLI) | payer MEDICARE ==
[~2020-02-01] MED LIST changes: +ATOR40TA59 PO; +DULA0.75 SQ; +METO-239 PO
== END | disposition home or self-care (01) ==
LOC: LAB 14:00
PROVIDERS: ATTEND Internal Medicine Cardiovascular Disease
DX: Z01.818 Encounter for other preprocedural examination (principal); Z11.59 Encounter for screening for other viral diseases; R94.39 Abnormal result of other cardiovascular function study
CPT/HCPCS: U0003-CS

== ENCOUNTER 2020-02-05 07:15 | Outpatient (CLI) | payer MEDICARE ==
[~2020-02-05] VITALS: Ht 172.7 cm; Wt 113.4 kg
[2020-02-05] VITALS (10 sets, daily range): BP systolic 129–151; BP diastolic 55–74
[~2020-02-05 07:15] MED LIST changes: -ATOR40TA59 PO; -DULA0.75 SQ; -METO-239 PO
[2020-02-05] MEDS ORDERED: IODIXANOL 320 MG/ML 100 ML VIAL. ONE (07:37)
[2020-02-05] MEDS ORDERED: LIDOCAINE 1% PF 2 ML VIAL. ONE (07:37)
[2020-02-05] MEDS ORDERED: METO-239 PO (07:48)
[2020-02-05] MEDS ORDERED: ATOR40TA59 PO (07:48)
[2020-02-05] MEDS ORDERED: DULA0.75 SQ (07:48)
[2020-02-05 07:54] LABS: HEMATOCRIT 32.5 % (36.0-47.0); HEMOGLOBIN 10.6 g/dL (12.0-15.5); RED BLOOD COUNT 3.84 x10^6/uL (3.50-5.40); RED CELL DISTRIBUTION WIDTH 13.5 % (11.5-14.5); WHITE BLOOD COUNT 9.3 x10^3/uL (4.0-11.0)
[2020-02-05 08:06] LABS: PROTHROMBIN TIME PATIENT 12.8 SEC (11.7-14.0)
[2020-02-05] MEDS ORDERED: fentaNYL PF VIAL 100 MCG/2 ML VIAL ONE (08:16)
[2020-02-05] MEDS ORDERED: VERAPAMIL 5 MG/2 ML VIAL. ONE (08:16)
[2020-02-05] MEDS ORDERED: NITROGLYCERIN 200 MCG/2 ML SYRINGE FOR CATH/VASC LAB. ONE (08:16)
[2020-02-05] MEDS ORDERED: HEPARIN for IV BOLUS 10,000 UNIT/10 ML VIAL. ONE (08:16)
[2020-02-05] MEDS ORDERED: MIDAZOLAM HCL/PF 5 MG/5 ML VIAL. ONE (08:16)
[2020-02-05] MEDS ORDERED: fentaNYL PF VIAL 100 MCG/2 ML VIAL IV ONE (08:30)
[2020-02-05] MEDS ORDERED: MIDAZOLAM HCL/PF 5 MG/5 ML VIAL. IV ONE (08:30)
[2020-02-05] MEDS ORDERED: IODIXANOL 320 MG/ML 100 ML VIAL. IART ONE (08:30)
[2020-02-05] MEDS ORDERED: VERAPAMIL 5 MG/2 ML VIAL. IART ONE (08:30)
[2020-02-05] MEDS ORDERED: NITROGLYCERIN 200 MCG/2 ML SYRINGE FOR CATH/VASC LAB. IART ONE (08:30)
[2020-02-05] MEDS ORDERED: HEPARIN for IV BOLUS 10,000 UNIT/10 ML VIAL. IART ONE (08:30)
[2020-02-05] MEDS ORDERED: LIDOCAINE 1% PF 2 ML VIAL. INJ ONE (08:30)
[2020-02-05 08:35] LABS: CALCIUM 9.3 mg/dL (8.5-10.1); CREATININE 1.5 mg/dL (0.6-1.0); GFR 34.7; POTASSIUM 5.4 mmol/L (3.5-5.1)
[2020-02-05] MEDS ORDERED: IV 1/2 NORMAL SALINE 1,000 ML IV SCH (09:31)
--- NOTE | 2020-02-05 09:31 | PDOC ---
MODERATE SEDATION ASSESSMENT RISKS/ALTERNATIVES Risks/Alternatives Risks and alternatives of this type of sedation and procedure discussed with: RISK/ALTERNATIVES: Patient H & P ON CHART H & P H & P on chart and reviewed for co-morbid conditions and appropriate labs. H&P ON CHART: Yes STATUS PREG STATUS ASSESSED: N/A MEDS/ALLERGIES REVIEWED Meds/Allergies Reviewed Medications and Allergies including time and route of recently administered narcotics and sedatives. MEDS/ALLERGIES REVIEWED: Yes ASA RATING ASA RATING: II AIRWAY ASSESSMENT Airway Assessment Airway patency, oral function limitations, presence of caps, crowns, dentures, partials, and ability to extend neck assessed. AIRWAY ASSESSMENT: Yes MALLAMPATI SCORE MALLAMPATI SCORE: II PRE-SEDATION ASSESSMENT PRE-SEDATION ASSESSMENT: Yes LINDA BROWNLEE MD Feb 05, 2020 09:31
--- NOTE | 2020-02-05 09:38 | CARD ---
MR#: [id number] Date of Study: 02/05/2020 Ordering Physician: LINDA BROWNLEE, Referring Physician: LINDA BROWNLEE Tech: JARRETT ROSE RTR APPROVED REPORT Technologist: JARRETT ROSE RTR Nurse: Paola Summers R.N. Procedure(s) performed: Left heart catheterization, selective coronary angiography and left ventricul ography via right transradial approach MODERATE SEDATION TIME: 30 MINUTES FLUORO TIME: 2.2 MINUTES DOSE: 48.4 GYCM2 CONTRAST: 92CC VISI INDICATION The indication(s) include : Dyspnea on exertion and positive stress test. [facility] Clinical Frailty Scale [facility] Clinical Frailty Scale: Mildly Frail Heart Failure Heart Failure: No PROCEDURE NARRATIVE After explaining the risks, benefits and alternative options, informed consent was obtained from elizabeth ent. Patient was brought to the cardiac [employer] and right wrist was prepped and draped in the usual fashion after confirming a positive modified Kwame's test. Arterial access was obtained in the rig t radial artery and a 6 Austrian sheath was inserted. 6 Austrian Johnson catheter was used to perform taisha ective angiography of the left and right coronary arteries. 6 Austrian pigtail catheter was used to pe rform left ventriculography. Patient tolerated the procedure well. Hemostasis was achieved using TR band. There were no immediate complications. The following findings were noted. FINDINGS 1. Hemodynamics: Elevated left ventricular end-diastolic pressure of 32 mmHg consistent with mild ac [place] on chronic diastolic heart failure. No pullback gradient across the aortic valve. 2. Left ventriculography: Normal left ventricle systolic function with ejection fraction estimated at 60%. No significant mitral regurgitation seen. 3. Coronary angiography: a. The left main coronary artery arose from the left sinus of Valsalva, gave rise to the left anteri or descending and left circumflex arteries and did not show any significant stenosis. b. The left anterior descending artery showed 30% proximal segment stenosis. c. The left circumflex artery did not show any significant stenosis. d. The right coronary artery was a large and dominant vessel arising from the right sinus of Valsalv a that did not show any significant stenosis. Conclusion 1. No significant coronary disease 2. Normal left ventricle systolic function with ejection fraction estimated at 60% 3. Elevated LVEDP of 32 mmHg consistent with mild acute on chronic diastolic heart failure. Recommendations Medical Therapy Signed by : Linda Brownlee, Electronically Approved : 02/05/2020 09:38:04
[2020-02-05] MEDS ORDERED: FUROSEMIDE 20 MG/2 ML VIAL. IVP ONE (09:45)
[2020-02-05] MEDS ORDERED: FUROSEMIDE 40 MG/4 ML VIAL. ONE (09:50)
--- NOTE | 2020-02-05 12:27 | NUR ---
Discharge Note: TUAN PAEZ ACCMichael Discharge instructions and discharge home medications reviewed with Spouse and a copy given. All questions have been answered and understanding verbalized. Patient ate breakfast with no difficulties. The following instructions and handouts were given: Moderate sedation, Coronary disease and radial site care. Discontinued lines and drains: right AC, dressing clean dry intact. Patient discharged to home with and sister via wheelchair to private vehicle.
== END 2020-02-05 12:25 | disposition home or self-care (01) ==
LOC: CCL 07:15
PROVIDERS: ATTEND Internal Medicine Cardiovascular Disease
DX: I25.10 Atherosclerotic heart disease of native coronary artery without angina pectoris (principal); I50.32 Chronic diastolic (congestive) heart failure; I48.0 Paroxysmal atrial fibrillation; G47.30 Sleep apnea, unspecified; Z79.899 Other long term (current) drug therapy
CPT/HCPCS: 36415; 80048; 82962; 85027; 85610; 93458; 99152; 99153; C1769; C1892; J1644; J1940; J2250; J3010; J3490; Q9967

== ENCOUNTER → 2020-04-17 | Outpatient (CLI) | payer MEDICARE ==
[2020-02-05 12:00] VITALS: BP 129/63
[~2020-04-17] MED LIST changes: +AMLO-187 PO; -AMLO10TA8 PO; +ATOR40TA59 PO; +DULA0.75 SQ; +METO-239 PO
--- NOTE | 2020-04-18 13:05 | SLEEP ---
DATE OF STUDY: 04/17/2020 OBJECTIVE: The patient is a 64-year-old female with insomnia, restless legs, nightmares, snoring, fatigue, and excessive daytime somnolence. Height 5 feet 8 inches, weight 270 pounds, body mass index 39. Lorraine sleep score of 15. INTERPRETATION: Sleep architecture is characterized by sleep efficiency of 82% across the 7.3 hours of recording time. Sleep onset latency is 25.5 minutes. Stage volumes are appropriate for age. Respiratory monitoring shows 131 events for an apnea-hypopnea index of 21.8 events per hour of sleep. The minimum oxygen saturation is 80%. The vast majority of the events are obstructive apneas or hypopneas. The patient is commenced on CPAP and later BiPAP. At a BiPAP setting of 24/15, the apnea/hypopnea index falls to 3.9 events per hour of sleep. Periodic limb movements of sleep occur at the rate of 58 events per hour, 2 per hour associated with arousal. No cardiac arrhythmias are observed. IMPRESSION: Abnormal polysomnogram showing obstructive sleep apnea-hypopnea, moderate -- severe, treatable on BiPAP at a setting of 24/15 using a ResMed full face mask, small size. RECOMMENDATIONS: 1. The patient should be established on this setting. 2. She should pursue weight loss and avoid sedatives and alcohol. Thank you for letting us help with the patient's care. RAMÍREZ BOOTH MD DR: SAMMY/prasanth JOB#: [id number] / [id number] ALEX Areans APRN
== END ==
LOC: SLPLAB 19:27
PROVIDERS: ATTEND Nurse Practitioner Family
DX: G47.33 Obstructive sleep apnea (adult) (pediatric) (principal)
CPT/HCPCS: 95810

== ENCOUNTER → 2020-05-02 | Outpatient (CLI) | payer MEDICARE ==
[2020-02-05 12:00] VITALS: BP 129/63
--- NOTE | 2020-05-02 16:31 | KCIC ---
PA lateral chest x-rays HISTORY: Chronic cough for months, asthma. COMPARISON: Chest x-ray June 22, 2019. FINDINGS: Heart size normal. Mediastinal silhouette is normal. There is mild chronic linear scarring at the left lateral lung base stable to x-rays back to 2018. There is slightly greater heterogeneous linear stranding densities of the infrahilar lung on the lateral view which is less well visualized on the frontal view, although may correspond to the right infrahilar lower lobe with slightly greater density than on the prior exam. Bones unremarkable. IMPRESSION: 1. Mild right infrahilar lower lobe linear stranding density has developed, best visualized on the lateral view, may represent subsegmental atelectasis or early pneumonia. Follow-up x-rays advised to document that this resolves. 2. Mild linear scarring left lower lobe is stable. Electronically signed by: Corbin Taylor MD (05/02/2020 4:28 PM) [facility]
== END ==
LOC: KCIC 14:39
PROVIDERS: ATTEND Internal Medicine Pulmonary Disease
DX: R05 Cough (principal); J98.4 Other disorders of lung
CPT/HCPCS: 71046

== ENCOUNTER → 2020-10-23 | Outpatient (CLI) | payer BC, MEDICARE ==
[2020-02-05 12:00] VITALS: BP 129/63
[~2020-10-23] MED LIST changes: -VALS1TAB22 PO; +VALS1TAB23 PO
--- NOTE | 2020-10-24 10:58 | CARD ---
MR#: [id number] Date of Study: 10/23/2020 Ordering Physician: LINDA BROWNLEE, Referring Physician: LINDA BROWNLEE, Tech: Gabrielle Rodriguez [facility] APPROVED REPORT EXAM: Two-dimensional and M-mode echocardiogram with Doppler and color Doppler. Other Information Quality : FairHR: 117bpm Technically limited study due to body habitus. INDICATION Hypertension/HCVD RISK FACTORS Hyperlipidemia Diabetes 2D DIMENSIONS RVDd3.2 (2.9-3.5cm)Left Atrium(2D)3.6 (1.6-4.0cm) IVSd1.1 (0.7-1.1cm)Aortic Root(2D)3.1 (2.0-3.7cm) LVDd5.3 (3.9-5.9cm)LVOT Diameter2.1 (1.8-2.4cm) PWd1.2 (0.7-1.1cm)LVDs3.4 (2.5-4.0cm) FS (%) 35.9 %SV89.3 ml LVEF(%)55.0 (>50%) Aortic Valve AoV Peak Satly.108.4cm/sAoV VTI22.2cm AO Peak GR.4.7mmHgLVOT Peak Salty.76.8cm/s LVOT VTI 15.63cmAO Mean GR.3mmHg KAREN (VMAX)1.48sy0EMX (VTI)2.37cm2 Mitral Valve MV E Pblyydna934.6cm/sMV DECEL SGTS656im MV A Tvmqmlcl66.1cm/sMV IJL15eq E/A Ratio1.7MVA (PHT)4.92cm2 TDI E/Lateral E'8.6E/Medial E'7.5 Pulmonary Valve PV Peak Niwebift130.9cm/sPV Peak Grad.4mmHg Tricuspid Valve TR P. Wzeqzzso216af/sRAP LEFAXZZL5ljRr TR Peak Gr.12sjQcYVMZ89ptPl LEFT VENTRICLE The left ventricle is normal size. There is mild concentric left ventricular hypertrophy. The left ve ntricular systolic function is normal and the ejection fraction is within normal range. EF 55% Septal motion consistent with conduction abnormality. Otherwise, grossly normal wall motion. Evaluation bauer ited due to atrial fibrillation with RVR. Tissue Doppler imaging reveals moderate left ventricular di astolic dysfunction. RIGHT VENTRICLE The right ventricle is borderline dilated. There is normal right ventricular wall thickness. The righ t ventricular systolic function is normal. ATRIA The left atrium is mildly dilated. The right atrium is mildly dilated. The interatrial septum is inta ct with no evidence for an atrial septal defect or patent foramen ovale as noted on 2-D or Doppler im aging. AORTIC VALVE The aortic valve is not well visualized. Doppler and Color Flow revealed trace aortic regurgitation. There is no significant aortic valvular stenosis. Calculated aortic valve area is 2.37 cm2 with maxim um pressure gradient of 5 mmHg and mean pressure gradient of 3 mmHg. MITRAL VALVE The mitral valve is normal in structure and function. There is no evidence of mitral valve prolapse. There is no mitral valve stenosis. Doppler and Color Flow revealed no mitral valve regurgitation note d. TRICUSPID VALVE The tricuspid valve is not well visualized. Doppler and Color Flow revealed trace tricuspid regurgita tion with an estimated PAP of 31 mmHg. There is no tricuspid valve stenosis. PULMONIC VALVE The pulmonic valve is not well visualized. Doppler and Color Flow revealed trace pulmonic valvular re gurgitation. There is no pulmonic valvular stenosis. GREAT VESSELS The aortic root is normal in size. The ascending aorta is normal in size. The IVC is normal in size a nd collapses >50% with inspiration. PERICARDIAL EFFUSION There is no evidence of significant pericardial effusion. Critical Notification Critical Value: No <Conclusion> The left ventricular systolic function is normal and the ejection fraction is within normal range. EF 55% Septal motion consistent with conduction abnormality. Otherwise, grossly normal wall motion. Evaluati on limited due to atrial fibrillation with RVR. Technically limited images. Signed by : Milton Goetz, Electronically Approved : 10/24/2020 10:58:11
== END ==
LOC: ECHO 13:39
PROVIDERS: ATTEND Internal Medicine Cardiovascular Disease
DX: I11.9 Hypertensive heart disease without heart failure (principal)
CPT/HCPCS: 93306

== ENCOUNTER 2020-12-27 10:51 | Day surgery (SDC) | payer BC, MEDICARE ==
[~2020-12-27] VITALS: Ht 173.4 cm; Wt 138.0 kg
[~2020-12-27 10:51] MED LIST changes: +APIX5TAB PO; +BUDE10.2 IH; +CHOL400T2 PO; +IV RINGERS,LACTATED 1000ML 1,000 ML IV SCH; +MULT-121 PO; +NYST15CR TP; +OMEG-152 PO
[2020-12-27 11:32] LABS: HEMATOCRIT 37.6 % (36.0-47.0); HEMOGLOBIN 12.2 g/dL (12.0-15.5); RED BLOOD COUNT 4.66 x10^6/uL (3.50-5.40); RED CELL DISTRIBUTION WIDTH 14.8 % (11.5-14.5); WHITE BLOOD COUNT 8.7 x10^3/uL (4.0-11.0)
[2020-12-27 11:35] LABS: CALCIUM 9.8 mg/dL (8.5-10.1); CREATININE 1.2 mg/dL (0.6-1.0); GFR 44.8; POTASSIUM 4.4 mmol/L (3.5-5.1)
--- NOTE | 2020-12-27 11:37 | EKG ---
[facility] [address] [place] [address] Test Date: 2020-12-27 Test Time: 11:35:01 Pat Name: TUAN PAEZ Department: Room: Gender: F Parts Finisher: MABLE : 1955 Requested By: LINDA BROWNLEE Order Number: [id number] Reading MD: Measurements Intervals [place] Rate: 88 P: UT: QRS: -4 QRSD: 72 T: 28 QT: 372 QTc: 454 Interpretive Statements IRREGULAR RHYTHM, NO P-WAVE FOUND LEFTWARD AXIS QRS(T) CONTOUR ABNORMALITY CONSIDER ANTEROSEPTAL MYOCARDIAL DAMAGE POSSIBLY ABNORMAL ECG RI6.02 Compared to ECG 12/13/2016 10:39:49 Sinus rhythm no longer present
[2020-12-27 11:43] LABS: PROTHROMBIN TIME PATIENT 13.8 SEC (11.7-14.0)
[2020-12-27] MEDS ORDERED: LIDOCAINE 2% PF 5 ML VIAL. ONE (11:56)
[2020-12-27] MEDS ORDERED: PROPOFOL 10 MG/ML (20ML) VIAL. IV ONE (11:56)
--- NOTE | 2020-12-27 13:08 | PDOC4 ---
Procedure Note Procedure: External cardioversion Indications: Atrial fibrillation Complications: None Procedural Details: After explaining the risk, benefits and alternative options, and informed consent was obtained from patient. Patient was given intravenous propofol by anesthesiology team for deep sedation. She was then administered 200 J of synchronized biphasic DC shock therapy with successful conversion of patient rhythm from atrial fibrillation to sinus rhythm. She was hemodynamically stable without any neurological deficits at the end of procedure. She tolerated the procedure well. There were no immediate complications. Conclusions: Successful cardioversion of atrial fibrillation to sinus rhythm. LINDA BROWNLEE MD Dec 27, 2020 13:08
[2020-12-27 13:10] VITALS: BP 117/55
--- NOTE | 2020-12-27 13:10 | EKG ---
[facility] [address] [place] [address] Test Date: 2020-12-27 Test Time: 13:06:18 Pat Name: TUAN PAEZ Department: Room: Gender: F Interactive Media Designer: : 1955 Requested By: LINDA BROWNLEE Order Number: [id number] Reading MD: Measurements Intervals [place] Rate: 62 P: 0 [place]: 190 QRS: 36 QRSD: 76 T: 20 QT: 446 QTc: 455 Interpretive Statements SINUS RHYTHM NORMAL ECG RI6.01 Compared to ECG 12/27/2020 11:35:01 Left-axis deviation no longer present
== END 2020-12-27 13:40 | disposition home or self-care (01) ==
LOC: SURG 10:51
PROVIDERS: ATTEND Internal Medicine Cardiovascular Disease
DX: I48.91 Unspecified atrial fibrillation (principal); R94.31 Abnormal electrocardiogram [ECG] [EKG]; I10 Essential (primary) hypertension; E78.00 Pure hypercholesterolemia, unspecified; G47.30 Sleep apnea, unspecified; K21.9 Gastro-esophageal reflux disease without esophagitis; E11.9 Type 2 diabetes mellitus without complications; Z86.73 Personal history of transient ischemic attack (TIA), and cerebral infarction without residual deficits; Z79.899 Other long term (current) drug therapy; Z98.890 Other specified postprocedural states; Z87.440 Personal history of urinary (tract) infections; Z72.89 Other problems related to lifestyle
CPT/HCPCS: 36415; 80048; 82962; 85027; 85610; 92960; 93005; J2704

== ENCOUNTER 2021-01-10 13:37 | Emergency (ER) | payer BC ==
[~2021-01-10] VITALS: Ht 172.7 cm; Wt 140.0 kg
[~2021-01-10 13:37] MED LIST changes: -IV RINGERS,LACTATED 1000ML 1,000 ML IV SCH
[2021-01-10 16:00] VITALS: BP 165/76
--- NOTE | 2021-01-10 17:31 | PHYS DOC ---
Past Medical History Past Medical History: Arthritis, CVA, Hypertension, Other Additional Past Medical Histor: H/O BONDS'S PALSY Past Surgical History: Other Additional Past Surgical Histo: ORIF LEFT ANKLE Smoking Status: Never Smoker Alcohol Use: Occasionally Drug Use: None General Adult EDM: Chief Complaint: SKIN PROBLEM HPI: HPI: 65-year-old female past medical history of A. teresa on Eliquis, presents the ED with complaints of intermittent bleeding pimple on her forehead for the past 4 days. Patient present in ED with , (patient consents to his/her/their knowledge and involvement in pts' medical care), who states he was driving and did not know what to do because they could not stop the bleeding today. Follows with Dr. Maria. Denies any history of excessive bleeding or needing a blood transfusion. Patient reports her tetanus is up-to-date. Review of Systems: Review of Systems: Constitutional: Denies fever or chills. [] Eyes: Denies change in visual acuity. [] HENT: Denies nasal congestion or sore throat. [] Respiratory: Denies cough or shortness of breath. [] Cardiovascular: Denies chest pain or edema. [] Musculoskeletal: Denies back pain or joint pain. [] Integument: Denies rash or blistering lesions Neurologic: Denies focal weakness or sensory changes. [] Psychiatric: Denies depression or anxiety. [] Heart Score: C/O Chest Pain: No Risk Factors: Risk Factors: DM, Current or recent (<one month) smoker, HTN, HLP, family history of CAD, obesity. Risk Scores: Score 0 - 3: 2.5% MACE over next 6 weeks - Discharge Home Score 4 - 6: 20.3% MACE over next 6 weeks - Admit for Clinical Observation Score 7 - 10: 72.7% MACE over next 6 weeks - Early Invasive Strategies Allergies: Allergies: Allergies Coded Allergies Type Severity Reaction Last Updated Verified No Known Drug Allergies 05/11/18 No Physical Exam: PE: Constitutional: Well developed, well nourished, no acute distress, non-toxic appearance, obese HENT: Normocephalic, atraumatic, very small 2 mm scab just above left medial eye brow-no active bleeding Eyes: PERRLA, EOMI, conjunctiva normal, no discharge. Neck: Normal range of motion, supple, Cardiovascular: S1/2 present, regular rhythm Lungs & Thorax: Speaking in full sentences, bilateral equal chest rise, no tachypnea or increased work of breathing Skin: Warm, dry, no no rash. [] Extremities: No tenderness, no cyanosis, Neurologic: Alert and oriented X 3, normal motor function, normal sensory function, no focal deficits noted. [] Psychologic: Affect normal, judgement normal, mood normal-kind/smiling Current Patient Data: Vital Signs: Vital Signs Date Time Temp Pulse Resp B/P (MAP) Pulse Ox O2 Delivery O2 Flow Rate FiO2 01/10/21 16:00 98.5 90 20 165/76 (75) 97 Room Air 98.5 EKG: EKG: [] Radiology/Procedures: Radiology/Procedures: [] Course & Med Decision Making: Course & Med Decision Making Pertinent Labs and Imaging studies reviewed. (See chart for details) Concern for intermittent bleeding on Eliquis from a small pimple on pts' forehead. Patient was educated on hemostasis measures (pressure/cold compresses and wound care instructions). Tetanus is up-to-date. Lesion had already scabbed over with no associated erythema or cellulitis. Dermabond was applied. Will discharge home with strict ED return precautions were given for recurrent or persistent bleeding. Encouraged urgent outpatient follow-up with PMD. Life-t hreatening processes were considered (anemia, hemorrhage, syncope, neurologic deficits, etc), but are low suspicion at this time, given history, physical exam and ED workup. Pt was educated on all prescription medications and adverse effects. All patient's questions were answered and pt was stable at time of discharge. I have spoken with the patient and/or caregivers. I explained the patient's condition, diagnoses and treatment plan based on the information available to me at this time. I have answered the patient and/or caregiver's questions and addressed any concerns. The patient and/or caregivers have a good understanding of patient's diagnosis, condition and treatment plan as can be expected at this point. Vital signs have been stable. Patient's condition is stable and appropriate for discharge from the emergency department. Patient will pursue further outpatient evaluation with primary care physician or other designated or consulting physician as outlined in the discharge instructions. The patient and/or caregivers are agreeable to this plan of care and follow-up instructions have been explained in detail. The patient and/or caregivers have received these instructions in written form and have expressed an understanding of the discharge instructions. The patient and/or caregivers are aware that any significant change of condition or worsening of symptoms should prompt immediate return to this or the closest emergency department or call to 911. Mallory Disclaimer: Mallory Disclaimer: This electronic medical record was generated, in whole or in part, using a voice recognition dictation system. Departure Departure Impression: Primary Impression: Facial abrasion Additional Impression: Bleeding Disposition: HOME / SELF CARE / HOMELESS Condition: STABLE Referrals: ALEX IVEY APRN (PCP) in the next 3-5 days for re-evaluation Patient Instructions: Anticoagulation, Generic Additional Instructions: Direct pressure is still the primary and most effective method of controlling bleeding.After packing, apply very firm pressure for 5-15 minutes. The combination of gauze in the wound and finger pressure will stop most bleeding. After three minutes, reassess for bleeding. Applying ice to a wound will constrict the blood vessels, allowing a clot to form more quickly and stop the bleeding. The best way to do this is to wrap ice in a clean, dry cloth and place it on the wound. KAREEM CUETO DO Jan 10, 2021 17:31
== END 2021-01-10 17:51 | disposition home or self-care (01) ==
LOC: ER 13:37
DX: S00.81XA Abrasion of other part of head, initial encounter (principal); I48.91 Unspecified atrial fibrillation; I10 Essential (primary) hypertension; Z86.73 Personal history of transient ischemic attack (TIA), and cerebral infarction without residual deficits; X58.XXXA Exposure to other specified factors, initial encounter; Y93.89 Activity, other specified; Y92.89 Other specified places as the place of occurrence of the external cause; Y99.8 Other external cause status
CPT/HCPCS: 99282

== ENCOUNTER → 2021-02-28 | Outpatient (CLI) | payer BC ==
--- NOTE | 2021-02-28 12:16 | KCIC ---
Bilateral digital screening mammograms: Reason for examination: Routine screening. Comparison is made to previous studies dated 12/22/2019 and 03/03/2018. Interpretation was made with the benefit of CAD. The skin and nipples show no abnormalities. No abnormal lymph nodes are seen. The breast parenchyma i s predominantly fatty. (Breast density: Category A.) There continues be a small nodule present in the lower outer quadrant of the 5:00 C position of the left breast which is stable. There are no new dom inant masses, suspicious calcifications or architectural distortions. Benign appearing calcifications are again seen which have remained stable. Impression: No evidence of malignancy. Recommend routine screening. BI-RADS Category 2: Benign. "Our facility is accredited by the [employer] Mammography Program." This patient's information has been entered into a reminder system for the patient to be notified wit h the results of her examination and a target date for the next mammogram. Electronically signed by: Oma Jackson MD (02/28/2021 12:14 PM) [id number]
== END ==
LOC: KCIC MAMMO 10:51
PROVIDERS: ATTEND Nurse Practitioner Family
DX: Z12.31 Encounter for screening mammogram for malignant neoplasm of breast (principal)
CPT/HCPCS: 77067

== ENCOUNTER → 2021-06-20 | Outpatient (CLI) | payer BC ==
--- NOTE | 2021-06-20 16:57 | KCIC ---
Chest PA and lateral: Reason for examination: Chronic cough. Asthma. The heart size is normal. Mediastinum is unremarkable. Lung horta show some mild opacity in the medi al right lung base which may reflect mild pneumonia. No pleural effusions or pneumothorax are seen. N o acute bony abnormalities are seen. Impression: Mild hazy parenchymal opacity in the right lung base medially. This could reflect mild pneumonia. Electronically signed by: Oma Jackson MD (06/20/2021 4:55 PM) [id number]
== END ==
LOC: KCIC 14:44
PROVIDERS: ATTEND Internal Medicine Pulmonary Disease
DX: R91.8 Other nonspecific abnormal finding of lung field (principal); R05.3 Chronic cough; J45.909 Unspecified asthma, uncomplicated
CPT/HCPCS: 71046